=== PATIENT | female | born 1935 | race Caucasian/White ===

== ENCOUNTER → 2017-05-23 | Outpatient (CLI) | payer MEDICARE, OTHER ==
--- NOTE | 2017-06-10 10:58 | MM ---
Reason for exam: additional evaluation requested from prior study. Last mammogram was performed 6 years and 2 months ago. History: Patient is postmenopausal and has history of breast cancer at age 73. Family history of breast cancer in mother at age 90 and breast cancer in sister. Lumpectomy of the right breast, 2008. Benign excisional biopsy of both breasts, 1959. Benign excisional biopsy of the right breast, 1949. Physical Findings: Nurse did not find any significant physical abnormalities on exam. MG 3D Diag Mammo W/Cad EVY Bilateral CC and MLO view(s) were taken. Prior study comparison: November 01, 2016, mammogram, performed at [place]. March 21, 2016, mammogram, performed at [place]. January 26, 2015, mammogram, performed at [place]. April 05, 2011, CAD bilateral diagnostic mammogram. March 28, 2010, bilateral diagnostic digital mammog. Asymmetric breast tissue consistent with post biopsy change. No significant new findings when compared with previous films. These results were verbally communicated with the patient and result sheet given to the patient on 06/10/17. ASSESSMENT: Benign, BI-RAD 2 RECOMMENDATION: Follow-up diagnostic mammogram of both breasts in 1 year.
== END | disposition home or self-care (01) ==
LOC: RADMAMWWP 09:57
PROVIDERS: ATTEND Family Medicine
DX: N63.0 Unspecified lump in unspecified breast (principal); Z85.3 Personal history of malignant neoplasm of breast
CPT/HCPCS: G0204; G0279

== ENCOUNTER → 2017-12-10 | Outpatient (CLI) | payer MEDICARE, OTHER ==
--- NOTE | 2017-12-10 09:18 | USB ---
Reason for exam: clinical finding. History: Patient is postmenopausal and has history of breast cancer at age 73. Family history of breast cancer in mother at age 90 and breast cancer in sister. Lumpectomy of the right breast, 2009. Benign excisional biopsy of both breasts, 1959. Benign excisional biopsy of the right breast, 1949. Indicated problem(s): palpable abnormality and pain in the right breast. Physical Findings: Nurse did not find any significant physical abnormalities on exam. US Breast RT Right breast ultrasound includes all four quadrants, the retroareolar region and axilla. Finding demonstrates no cystic or solid lesion seen greater than 0.50cm. These results were verbally communicated with the patient and result sheet given to the patient on 12/10/17. ASSESSMENT: Negative, BI-RAD 1 RECOMMENDATION: Routine screening mammogram of both breasts in 6 months. Back on schedule. Manage on a clinical basis with regard to right pain.
== END | disposition home or self-care (01) ==
LOC: RADUSWWP 08:28
PROVIDERS: ATTEND Family Medicine
DX: N63.10 Unspecified lump in the right breast, unspecified quadrant (principal)

== ENCOUNTER 2018-01-28 11:46 | Observation (INO) | payer MEDICARE, OTHER ==
[2018-01-28] MEDS ORDERED: NITROGLYCERIN OINT 1 INCH/GM PACKET TOPICAL STA (11:57)
[2018-01-28] MEDS ORDERED: ASPIRIN 81 MG PO STA (11:57)
--- NOTE | 2018-01-28 12:00 | ED ---
General Adult HPI - General Stated complaint: chest pain Time Seen by Provider: 01/28/18 11:48 Source: patient, EMS, RN notes reviewed Mode of arrival: EMS Limitations: no limitations - History of Present Illness Initial comments: Patient is a pleasant 82-year-old female presenting to the emergency Department with complaints of chest discomfort. Onset of symptoms was between 30 and 60 minutes ago. Discomfort felt somewhat sharp on the left breast. No radiation. Patient did have some associated dyspnea. Symptoms resolved with aspirin and nitroglycerin. Patient had some minimal symptoms yesterday. Patient states symptoms are similar to previous heart attack. - Related Data Home Medications Medication Instructions Recorded Confirmed Anastrozole [Arimidex] 1 mg PO DAILY 03/07/15 09/04/17 Diltiazem HCl [Cardizem Cd] 120 mg PO DAILY 01/05/16 09/04/17 Hydrochlorothiazide [Hydrodiuril] 12.5 mg PO DAILY 01/05/16 09/04/17 Cholecalciferol [Vitamin D3] 1,000 unit PO DAILY 01/20/16 09/04/17 Nitroglycerin Sl Tabs [Nitrostat] 0.4 mg SUBLINGUAL Q5M PRN 01/20/16 09/04/17 Fluticasone/Vilanterol [Breo 1 puff INHALATION RT-DAILY 09/04/17 09/04/17 Ellipta 200-25 Mcg INH] Irbesartan [Avapro] 150 mg PO DAILY 09/04/17 09/04/17 Metoprolol Tartrate [Lopressor] 25 mg PO BID 09/04/17 09/04/17 Previous Rx's Medication Instructions Recorded Aspirin EC [Ecotrin Low Dose] 81 mg PO DAILY #30 tablet. 01/23/16 Ferrous Sulfate [Feosol] 325 mg PO DAILY 30 Days #30 tab 09/08/17 Isosorbide Mononitrate ER [Imdur] 30 mg PO DAILY tab.er.24h 09/08/17 Pantoprazole [Protonix] 40 mg PO AC-BRKFST tablet. 09/08/17 Allergies Allergy/AdvReac Type Severity Reaction Status Date / Time adhesive Allergy Unknown Verified 09/04/17 13:58 cephalexin monohydrate Allergy Unknown Verified 09/04/17 13:58 [From Keflex] ciprofloxacin [From Cipro] Allergy Unknown Verified 09/04/17 13:58 ciprofloxacin HCl Allergy Unknown Verified 09/04/17 13:58 [From Cipro] Penicillins Allergy Rash/Hives Verified 09/04/17 13:58 Sulfa (Sulfonamide Allergy Rash/Hives Verified 09/04/17 13:58 Antibiotics) Review of Systems ROS Statement: Those systems with pertinent positive or pertinent negative responses have been documented in the HPI. ROS Other: All systems not noted in ROS Statement are negative. Constitutional: Denies: fever Eyes: Denies: eye pain ENT: Denies: ear pain Respiratory: Reports: dyspnea. Denies: cough Cardiovascular: Reports: chest pain Endocrine: Denies: fatigue Gastrointestinal: Denies: abdominal pain Genitourinary: Denies: dysuria Musculoskeletal: Denies: back pain Skin: Denies: rash Neurological: Denies: weakness Past Medical History Past Medical History: Atrial Fibrillation, Cancer, Chest Pain / Angina, Hyperlipidemia, Hypertension, Myocardial Infarction ([place]), Osteoarthritis (OA), Seizure Disorder Additional Past Medical History / Comment(s): RTbreast CA had lumpectomy/ radiation, Aneurysm,concussion , BRONCHITIS, x2 mi's, stress test 2016-wnl,x1 seizure more than 30 years ago none since.sciatica, concussion 2014, past falls. Last Myocardial Infarction Date:: 2014 History of Any Multi-Drug Resistant Organisms: None Reported Past Surgical History: Appendectomy, Back Surgery, Bladder Surgery, Breast Surgery, Heart Catheterization With Stent, Hysterectomy, Joint Replacement, Pacemaker Additional Past Surgical History / Comment(s): right lumpectomy, neck surgery, left shoulder replaced, bilateral carpal tunnel surgery, right middle finger surgery, shingles (2012), CARDIAC STENTS TO RCA AND CIRC, EVY HIP REPLACMENTS( DONE IN [place]), EVY CATARACTS Past Anesthesia/Blood Transfusion Reactions: No Reported Reaction Date of Last Stent Placement:: 05/09/2007 Type of Cardiac Device: Biventricular Pacemaker Device Placement Date:: 06/18/11 Past Psychological History: No Psychological Hx Reported Smoking Status: Former smoker Past Alcohol Use History: Daily Past Drug Use History: None Reported - Past Family History Father Additional Family Medical History / Comment(s): kidney problem, heart attack Mother Family Medical History: Cancer Additional Family Medical History / Comment(s): colon ca, breast ca, MOM LIVED TO BE 98 YEARS OLD Sister(s) Family Medical History: Cancer Additional Family Medical History / Comment(s): colon ca, breast ca General Exam Limitations: no limitations General appearance: alert, in no apparent distress Head exam: Present: atraumatic Eye exam: Present: normal appearance, PERRL ENT exam: Present: normal oropharynx Neck exam: Present: normal inspection Respiratory exam: Present: normal lung sounds bilaterally Cardiovascular Exam: Present: regular rate, normal rhythm Expanded Peripheral pulses: 2+: Radial (R), Radial (L), Posterior Tibialis (R), Posterior Tibialis (L) GI/Abdominal exam: Present: soft. Absent: tenderness Extremities exam: Present: normal inspection. Absent: pedal edema, calf tenderness Neurological exam: Present: alert Psychiatric exam: Present: normal affect, normal mood Skin exam: Present: normal color Course Vital Signs 01/28/18 01/28/18 11:54 12:14 Temperature 98.2 F Pulse Rate 67 61 Respiratory 16 18 Rate Blood Pressure 180/67 117/62 O2 Sat by Pulse 97 100 Oximetry EKG Findings - EKG Comments: EKG Findings:: Paced rhythm at 62. SD 220. QRS 170. QT 468. QTC 475. Normal axis. Wide complex QRS. Nonspecific ST-T. Medical Decision Making - Medical Decision Making Patient reevaluated and resting comfortably in bed. No discomfort at this time. Patient and family updated on results and plan. Dr. Saleh has been paged for admission for Dr. tolentino. - Lab Data Result diagrams: 01/28/18 11:55 01/28/18 11:55 Lab Results 01/28/18 01/28/18 01/28/18 Range/Units 11:55 11:55 11:55 WBC 4.2 (3.8-10.6) k/uL RBC 4.02 (3.80-5.40) m/uL Hgb 12.0 (11.4-16.0) gm/dL Hct 36.5 (34.0-46.0) % MCV 90.6 (80.0-100.0) fL MCH 29.9 (25.0-35.0) pg MCHC 33.0 (31.0-37.0) g/dL RDW 16.9 H (11.5-15.5) % Plt Count 265 (150-450) k/uL PT (9.0-12.0) sec INR (<1.2) APTT (22.0-30.0) sec Sodium 141 (137-145) mmol/L Potassium 4.1 (3.5-5.1) mmol/L Chloride 106 (98-107) mmol/L Carbon Dioxide 22 (22-30) mmol/L Anion Gap 13 mmol/L BUN 27 H (7-17) mg/dL Creatinine 0.71 (0.52-1.04) mg/dL Est GFR (CKD-EPI)AfAm >90 (>60 ml/min/1.73 sqM) Est GFR (CKD-EPI)NonAf 80 (>60 ml/min/1.73 sqM) Glucose 79 (74-99) mg/dL Calcium 8.3 L (8.4-10.2) mg/dL Magnesium 1.9 (1.6-2.3) mg/dL Total Bilirubin 0.4 (0.2-1.3) mg/dL AST 28 (14-36) U/L ALT 24 (9-52) U/L Alkaline Phosphatase 72 (38-126) U/L Total Creatine Kinase 54 (30-135) U/L CK-MB (CK-2) 1.5 (0.0-2.4) ng/mL CK-MB (CK-2) Rel Index 2.8 Troponin I 0.012 (0.000-0.034) ng/mL Total Protein 6.2 L (6.3-8.2) g/dL Albumin 3.6 (3.5-5.0) g/dL 01/28/18 Range/Units 11:55 WBC (3.8-10.6) k/uL RBC (3.80-5.40) m/uL Hgb (11.4-16.0) gm/dL Hct (34.0-46.0) % MCV (80.0-100.0) fL MCH (25.0-35.0) pg MCHC (31.0-37.0) g/dL RDW (11.5-15.5) % Plt Count (150-450) k/uL PT 10.2 (9.0-12.0) sec INR 1.0 (<1.2) APTT 24.4 (22.0-30.0) sec Sodium (137-145) mmol/L Potassium (3.5-5.1) mmol/L Chloride (98-107) mmol/L Carbon Dioxide (22-30) mmol/L Anion Gap mmol/L BUN (7-17) mg/dL Creatinine (0.52-1.04) mg/dL Est GFR (CKD-EPI)AfAm (>60 ml/min/1.73 sqM) Est GFR (CKD-EPI)NonAf (>60 ml/min/1.73 sqM) Glucose (74-99) mg/dL Calcium (8.4-10.2) mg/dL Magnesium (1.6-2.3) mg/dL Total Bilirubin (0.2-1.3) mg/dL AST (14-36) U/L ALT (9-52) U/L Alkaline Phosphatase (38-126) U/L Total Creatine Kinase (30-135) U/L CK-MB (CK-2) (0.0-2.4) ng/mL CK-MB (CK-2) Rel Index Troponin I (0.000-0.034) ng/mL Total Protein (6.3-8.2) g/dL Albumin (3.5-5.0) g/dL - Radiology Data Radiology results: image reviewed (Chest x-ray shows chronic changes without acute abnormality.) Disposition Clinical Impression: Chest pain Disposition: ADMITTED IP TO THIS [facility] Is patient prescribed a controlled substance at d/c from ED?: No Referrals: Dayanna Izquierdo MD [Primary Care Provider] - 1-2 days Decision Time: 12:52
[2018-01-28 12:19] LABS: ALT 24 U/L (9-52); AST 28 U/L (14-36); Albumin 3.6 g/dL (3.5-5.0); Alkaline Phosphatase 72 U/L (38-126); Anion Gap 13 mmol/L; Blood Urea Nitrogen 27 mg/dL (7-17); Calcium 8.3 mg/dL (8.4-10.2); Carbon Dioxide 22 mmol/L (22-30); Chloride 106 mmol/L (98-107); Glucose 79 mg/dL (74-99); Magnesium 1.9 mg/dL (1.6-2.3); Partial Thromboplastin Time 24.4 sec (22.0-30.0); Potassium 4.1 mmol/L (3.5-5.1); Prothrombin Time 10.2 sec (9.0-12.0); Sodium 141 mmol/L (137-145); Total Bilirubin 0.4 mg/dL (0.2-1.3); Total Protein 6.2 g/dL (6.3-8.2)
--- NOTE | 2018-01-28 12:20 | XR ---
EXAMINATION TYPE: XR chest 2V DATE OF EXAM: 01/28/2018 COMPARISON: Chest x-ray September 04, 2017 HISTORY: Chest pain and shortness of breath TECHNIQUE: Frontal and lateral views of the chest are obtained. FINDINGS: There is no focal air space opacity, pleural effusion, or pneumothorax seen. The cardiac silhouette size remains within normal limits with dual lead pacemaker and atherosclerotic thoracic ao rta redemonstrated. The osseous structures remain demineralized. Surgical change left shoulder leve l is partially imaged. IMPRESSION: Chronic changes without acute pulmonary process. No significant change from prior.
[2018-01-28 12:37] LABS: Anisocytosis Slight; HCT 36.5 % (34.0-46.0); MCH 29.9 pg (25.0-35.0); MCV 90.6 fL (80.0-100.0); Mean Platelet Volume 6.8; Platelet Count 265 k/uL (150-450); RBC 4.02 m/uL (3.80-5.40); RDW 16.9 % (11.5-15.5); WBC 4.2 k/uL (3.8-10.6)
[2018-01-28 12:40] LABS: Creatine Kinase MB 1.5 ng/mL (0.0-2.4); Troponin I 0.012 ng/mL (0.000-0.034)
[2018-01-28] MEDS ORDERED: NITROGLYCERIN SL TABS 0.4 MG TAB SUBLINGUAL PRN (12:52)
[2018-01-28 12:54] LABS: Eosinophils # (M) 0.21 k/uL (0-0.7); Lymphocytes # (M) 0.63 k/uL (1.0-4.8); Monocytes # (M) 0.63 k/uL (0-1.0); Neutrophils # (M) 2.73 k/uL (1.3-7.7); Neutrophils % (M) 65 %; Nucleated Red Blood Cells 0 /100 WBC (0-0); Total Cells Counted 100
--- NOTE | 2018-01-28 14:24 | P.HPIM ---
History of Present Illness H&P Date: 01/28/18 Chief Complaint: Chest pain This is a 82-year-old female, patient of Dr. Izquierdo. She has a known past medical history of a previous myocardial infarction, coronary artery disease and cardiac stents. She also has a known history of atrial fibrillation, hyperlipidemia, hypertension, COPD, previous smoker, seizure disorder, right breast cancer status post lumpectomy and radiation treatment. Patient reports that this morning around 8:00 she had a sudden onset of severe sharp pain under the left breast. She was short of breath. She took an aspirin and nitro and went to her neighbor's house to call for help. Patient did not have her follow- up with her. The neighbor called the ambulance and break patient was brought into the emergency room for further evaluation and treatment. Patient does report she was out in the heat yesterday walking [facility] to fill out some paperwork forms. And at that time she noticed some shortness of breath but no chest pain. Patient was given another aspirin and nitro in the ambulance and at that time had relief for symptoms. Patient's symptoms lasted for about 3 hours. Patient had a heart cath in February 2015 which she had angioplasty and stent of the mid left circumflex. Patient also reports just finishing antibiotics for possible bronchitis with him last week or so. She denies any nausea or vomiting, diaphoresis, bowel movement changes or urinary symptoms. Denies any fever chills or sweats. She denies any radiation of the chest pain into the neck or arm. Denies any history of diabetes. Cardiology is been consulted. Chest x-ray shows new no acute changes. First troponin is negative. EKG atrial ventricular paced rhythm with prolonged AV conduction Review of Systems Please refer to HPI otherwise unremarkable Past Medical History Past Medical History: Atrial Fibrillation, Cancer, Chest Pain / Angina, Hyperlipidemia, Hypertension, Myocardial Infarction ([place]), Osteoarthritis (OA), Seizure Disorder Additional Past Medical History / Comment(s): RTbreast CA had lumpectomy/ radiation, Aneurysm,concussion , BRONCHITIS, x2 mi's, stress test 2015-wnl,x1 seizure more than 30 years ago none since.sciatica, concussion 2014, past falls. Last Myocardial Infarction Date:: 2014 History of Any Multi-Drug Resistant Organisms: None Reported Past Surgical History: Appendectomy, Back Surgery, Bladder Surgery, Breast Surgery, Heart Catheterization With Stent, Hysterectomy, Joint Replacement, Pacemaker Additional Past Surgical History / Comment(s): right lumpectomy, neck surgery, left shoulder replaced, bilateral carpal tunnel surgery, right middle finger surgery, shingles (2013), CARDIAC STENTS TO RCA AND CIRC, EVY HIP REPLACMENTS( DONE IN [place]), EVY CATARACTS Past Anesthesia/Blood Transfusion Reactions: No Reported Reaction Date of Last Stent Placement:: 05/09/2007 Type of Cardiac Device: Biventricular Pacemaker Device Placement Date:: 06/18/11 Past Psychological History: No Psychological Hx Reported Smoking Status: Former smoker Past Alcohol Use History: Daily Additional Past Alcohol Use History / Comment(s): Patient drinks 1 shot of vodka before bed daily to help with sleeping Past Drug Use History: None Reported - Past Family History Father Additional Family Medical History / Comment(s): kidney problem, heart attack Mother Family Medical History: Cancer Additional Family Medical History / Comment(s): colon ca, breast ca, MOM LIVED TO BE 98 YEARS OLD Sister(s) Family Medical History: Cancer Additional Family Medical History / Comment(s): colon ca, breast ca Medications and Allergies Home Medications Medication Instructions Recorded Confirmed Type Anastrozole [Arimidex] 1 mg PO DAILY 03/07/15 09/04/17 History Diltiazem HCl [Cardizem Cd] 120 mg PO DAILY 01/05/16 09/04/17 History Hydrochlorothiazide [Hydrodiuril] 12.5 mg PO DAILY 01/05/16 09/04/17 History Cholecalciferol [Vitamin D3] 1,000 unit PO DAILY 01/20/16 09/04/17 History Nitroglycerin Sl Tabs [Nitrostat] 0.4 mg SUBLINGUAL Q5M PRN 01/20/16 09/04/17 History Aspirin EC [Ecotrin Low Dose] 81 mg PO DAILY #30 tablet. 01/23/16 09/04/17 Rx Fluticasone/Vilanterol [Breo 1 puff INHALATION RT-DAILY 09/04/17 09/04/17 History Ellipta 200-25 Mcg INH] Irbesartan [Avapro] 150 mg PO DAILY 09/04/17 09/04/17 History Metoprolol Tartrate [Lopressor] 25 mg PO BID 09/04/17 09/04/17 History Ferrous Sulfate [Feosol] 325 mg PO DAILY 30 Days #30 tab 09/08/17 Rx Isosorbide Mononitrate ER [Imdur] 30 mg PO DAILY tab.er.24h 09/08/17 Rx Pantoprazole [Protonix] 40 mg PO AC-BRKFST tablet. 09/08/17 Rx Allergies Allergy/AdvReac Type Severity Reaction Status Date / Time adhesive Allergy Unknown Verified 09/04/17 13:58 cephalexin monohydrate Allergy Unknown Verified 09/04/17 13:58 [From Keflex] ciprofloxacin [From Cipro] Allergy Unknown Verified 09/04/17 13:58 ciprofloxacin HCl Allergy Unknown Verified 09/04/17 13:58 [From Cipro] Penicillins Allergy Rash/Hives Verified 09/04/17 13:58 Sulfa (Sulfonamide Allergy Rash/Hives Verified 09/04/17 13:58 Antibiotics) Physical Exam Vitals: Vital Signs Temp Pulse Pulse Resp BP BP Pulse Ox 01/28/18 14:04 97.4 F L 60 18 168/72 98 01/28/18 13:33 97.4 F L 62 18 149/67 97 01/28/18 12:14 61 18 117/62 100 01/28/18 11:54 98.2 F 67 16 180/67 97 Intake and Output 01/27/18 01/28/18 01/28/18 22:59 06:59 14:59 Other: Weight 67 kg Head normocephalic Neck supple Lungs clear to auscultation bilaterally no wheezing or crackles. Chest wall shows no evidence of any rash or lesions Heart regular rate and rhythm S1-S2, no rub or gallop Abdomen is soft nontender nondistended positive bowel sounds no hepatosplenomegaly Extremities no edema Neuro alert and orientated to 3 Results CBC & Chem 7: 01/28/18 11:55 01/28/18 11:55 Labs: Abnormal Lab Results - Last 24 Hours (Table) 01/28/18 01/28/18 Range/Units 11:55 11:55 RDW 16.9 H (11.5-15.5) % Lymphocytes # (Manual) 0.63 L (1.0-4.8) k/uL BUN 27 H (7-17) mg/dL Calcium 8.3 L (8.4-10.2) mg/dL Total Protein 6.2 L (6.3-8.2) g/dL Assessment and Plan Assessment: 1. Chest pain with shortness of breath: Improved with aspirin and nitro. First troponin negative. EKG showing atrial sensed ventricular paced rhythm. Cardiology consulted. Continue with telemetry monitoring. Continue to monitor cardiac enzymes. Also will check a d-dimer since the chest pain shortness of breath did come on suddenly 2. History of Myocardial infarction and coronary disease with stent 3. History of right breast cancer status post lumpectomy and radiation treatment 4. History of paroxysmal atrial fibrillation 5. Hyperlipidemia 6. Essential hypertension Patient reports being on anticoagulation at home for afib. Awaiting for home medications to be updated by pharmacy. Then will resume home medications Time with Patient: Greater than 30 (Greater than 60% of the total time spent in counseling and coordination of care.I performed an examination of the patient and discussed their management with the physician Milling Operator. I have reviewed the Physician Milling Operator's notes and agree with the documented findings and plan of care)
[2018-01-28] MEDS ORDERED: NYSTATIN 100,000UNIT/GM CREAM 30 GM TUBE TOPICAL PRN (15:13)
[2018-01-28] MEDS: NITROGLYCERIN OINT 1 INCH/GM PACKET TOPICAL SCH (17:23)
[2018-01-28 18:18] LABS: Creatine Kinase 52 U/L (30-135)
[2018-01-28 18:32] LABS: Creatine Kinase MB 1.5 ng/mL (0.0-2.4); Troponin I <0.012 ng/mL (0.000-0.034)
[2018-01-28] MEDS: METOPROLOL TARTRATE 25 MG TAB PO SCH (19:58)
[2018-01-28] MEDS: HEPARIN SODIUM,PORCINE 5,000 UNIT/ML 1 ML VIAL SQ SCH (19:58)
[2018-01-28] MEDS ORDERED: diphenhydrAMINE 25 MG CAP PO SCH (21:00)
--- NOTE | 2018-01-28 22:11 | CT ---
EXAMINATION TYPE: CT angio chest DATE OF EXAM: 01/28/2018 10:03 PM COMPARISON: 01/20/2016 HISTORY: Chest pain, elevated d-dimer CT DLP: 349.3 mGycm Automated exposure control for dose reduction was used. CONTRAST: CTA scan of the thorax is performed with IV Contrast, patient injected with 70 mL of Isovue 370, pulm onary embolism protocol. There are 3-D post processed images.. FINDINGS: The lungs are clear of consolidation. There is slight coarsening of interstitial markings at the lung bases. There is no pleural effusion. There is no evidence of a pulmonary mass. There is no pericardi al effusion. I see no filling defects in the pulmonary arteries. There is no pericardial effusion. Th ere is borderline aneurysm of the ascending aorta measures 3.9 cm. There is no evidence of dissection . The bony thorax is intact. IMPRESSION: NO EVIDENCE OF PULMONARY EMBOLISM. MILD PULMONARY FIBROTIC CHANGES. 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 NO SIGNIFICANT CHANGE COMPARED TO OLD EXAM.
[2018-01-29 00:17] LABS: Creatine Kinase 52 U/L (30-135)
[2018-01-29 00:31] LABS: Creatine Kinase MB 1.6 ng/mL (0.0-2.4); Troponin I <0.012 ng/mL (0.000-0.034)
[2018-01-29] MEDS: ACETAMINOPHEN TAB 325 MG TAB PO PRN ×2 (00:37→04:19)
[2018-01-29] MEDS: NITROGLYCERIN OINT 1 INCH/GM PACKET TOPICAL SCH ×2 (00:56→07:19)
[2018-01-29 07:22] LABS: Anisocytosis Slight; Basophils % (A) 1 %; Eosinophils # (A) 0.2 k/uL (0-0.7); Eosinophils % (A) 8 %; HCT 35.2 % (34.0-46.0); HGB 11.4 gm/dL (11.4-16.0); Lymphocytes # (A) 0.8 k/uL (1.0-4.8); Lymphocytes % (A) 27 %; MCH 28.9 pg (25.0-35.0); MCHC 32.3 g/dL (31.0-37.0); MCV 89.4 fL (80.0-100.0); Mean Platelet Volume 6.9; Monocytes # (A) 0.3 k/uL (0-1.0); Monocytes % (A) 10 %; Neutrophils # (A) 1.4 k/uL (1.3-7.7); Neutrophils % (A) 50 %; Platelet Count 247 k/uL (150-450); RBC 3.94 m/uL (3.80-5.40); RDW 16.8 % (11.5-15.5); WBC 2.9 k/uL (3.8-10.6)
[2018-01-29] MEDS ORDERED: PANTOPRAZOLE 40 MG TABLET PO SCH (07:30)
[2018-01-29 07:33] LABS: ALT 24 U/L (9-52); AST 29 U/L (14-36); Albumin 3.4 g/dL (3.5-5.0); Alkaline Phosphatase 75 U/L (38-126); Anion Gap 9 mmol/L; Blood Urea Nitrogen 22 mg/dL (7-17); Carbon Dioxide 25 mmol/L (22-30); Chloride 106 mmol/L (98-107); Cholesterol 196 mg/dL (<200); Glucose 92 mg/dL (74-99); HDL Cholesterol 67 mg/dL (40-60); LDL Cholesterol,Calculated 116 mg/dL (0-99); Potassium 4.1 mmol/L (3.5-5.1); Sodium 140 mmol/L (137-145); Total Bilirubin 0.4 mg/dL (0.2-1.3); Total Protein 5.9 g/dL (6.3-8.2); Triglycerides 67 mg/dL (<150)
[2018-01-29] MEDS ORDERED: SYMBICORT 160-4.5 MCG INHALER INHALATION SCH (08:00)
[2018-01-29] MEDS ORDERED: FERROUS SULFATE 325 MG TAB PO SCH (09:00)
[2018-01-29] MEDS ORDERED: DILTIAZEM CD 120 MG CAP.ER.24H PO SCH (09:00)
[2018-01-29] MEDS ORDERED: HYDROCHLOROTHIAZIDE 12.5 MG CAP PO SCH (09:00)
[2018-01-29] MEDS ORDERED: ASPIRIN 325 MG TAB PO SCH (09:00)
[2018-01-29] MEDS ORDERED: CHOLECALCIFEROL 1,000 UNIT TAB PO SCH (09:00)
[2018-01-29] MEDS ORDERED: LOSARTAN 50 MG TAB PO SCH (09:00)
[2018-01-29] MEDS ORDERED: ASPIRIN 81 MG PO SCH (09:00)
[2018-01-29] MEDS ORDERED: ANASTROZOLE 1 MG TAB PO SCH (09:00)
[2018-01-29] MEDS ORDERED: REGADENOSON 0.4 MG/5 ML SYRINGE IV ONE (10:07)
[2018-01-29] MEDS ORDERED: AMINOPHYLLINE 500 MG/20 ML VIAL IV PRN (10:07)
--- NOTE | 2018-01-29 10:12 | P.CRDCN ---
History of Present Illness History of present illness: This is a pleasant 82-year-old female past medical history significant for coronary artery disease status post angioplasty. She has undergone angioplasty on 3 separate occasions first being in 2016 of the distal RCA, 04/2015 again the distal RCA and mid circumflex. She also has hypertension , dyslipidemia, peripheral vascular disease, gastroesophageal reflux disease, history of right breast cancer status post radiation and lumpectomy, complete heart block status post permanent biventricular pacemaker implantation and questionable paroxysmal atrial fibrillation. She states she was told she had atrial fibrillation in 2007 however is on no long-term anticoagulation and states she never has been. She has followed in the past with Dr. García, but has not followed up since 2014. We've been asked to see her in consultation for complaints of chest pain. She states morning while she was sitting down she had a very intense excruciating sharp pain in the left precordial region that was associated with shortness of breath, palpitations and dizziness. She denies radiation of the pain to the arms, back, neck or jaw. She states she was really able to make it to the neighbors to ask for help because the pain was so intense. She took one sublingual nitroglycerin and an aspirin at home and the pain ultimately subsided after about 30 minutes. She has had no recurrence of the pain since admission. She denies associated nausea, vomiting or diaphoresis. EKG reveals a paced rhythm with a prolonged AV conduction. Chest x-ray shows chronic changes without an acute cardiopulmonary process. Laboratory data reviewed, hgb 12.0, plt 265, d-dimer 0.64, sodium 141, potassium 4.1, magnesium 1.9, creatinine 0.71, cardiac enzymes negative 3. Current cardiac medications include aspirin 81 mg daily, Cardizem 120 mg daily, hydrochlorothiazide 12.5 mg daily, irbesartan 150 mg daily, Imdur 30 mg daily, metoprolol 25 mg twice a day and sublingual nitroglycerin when necessary. She also takes Protonix, Brio, ferrous sulfate, Arimidex and vitamin D supplementation. Most recent echocardiogram performed August 2017 reveals preserved left ventricular systolic function with ejection fraction 55-60%, severely dilated left atrium, pacemaker lead seen in the right atrial cavity, atrium enlargement , borderline pulmonary hypertension with an RVSP of 34.31 mmHg. Review of Systems At the time of my exam: CONSTITUTIONAL: Denies fever. Denies chills. EYES: Denies blurred vision. Denies vision changes. Denies eye pain. EARS, NOSE, MOUTH & THROAT: Denies headache. Denies sore throat. Denies ear pain. CARDIOVASCULAR: Denies chest pain. Denies shortness of breath. Denies orthopnea. Denies PND. Denies palpitations. RESPIRATORY: Denies cough. GASTROINTESTINAL: Denies abdominal pain. Denies diarrhea. Denies constipation. Denies nausea. Denies vomiting. MUSCULOSKELETAL: Denies myalgias. INTEGUMENTARY: Denies pruitis. Denies rash. NEUROLOGIC: Denies numbness. Denies tingling. Denies weakness. PSYCHIATRIC: Denies anxiety. Denies depression. ENDOCRINE: Denies fatigue. Denies weight change. Denies polydipsia. Denies polyurina. GENITOURINARY: Denies burning, hematuria or urgency with micturation. HEMATOLOGIC: Denies history of anemia. Denies bleeding. Past Medical History Past Medical History: Atrial Fibrillation, Coronary Artery Disease (CAD), Cancer , Chest Pain / Angina, GERD/Reflux, Hypertension, Myocardial Infarction ([place]), Osteoarthritis (OA), Pneumonia, Seizure Disorder Additional Past Medical History / Comment(s): R breast cancer with lumpectomy/ radiation, CHB with pacer, cerebral aneurysm, arthritis multiple joints and in neck/back, sciatica right sided, balance issues at times, fall with concussion, multiple bronchitis, iron deficiency anemia, UTIs, stomach ulcer in past. Last Myocardial Infarction Date:: 2014 History of Any Multi-Drug Resistant Organisms: None Reported Past Surgical History: Appendectomy, Back Surgery, Breast Surgery, Heart Catheterization With Stent, Hysterectomy, Joint Replacement, Pacemaker Additional Past Surgical History / Comment(s): right breast lumpectomy, cervical surgery, lumbar surgery, left shoulder replaced, right thumb surgery, CARDIAC STENTS TO RCA AND CIRC, EVY HIP REPLACMENTS (DONE IN [place]), EVY CATARACTS, EGD/colonoscopy, capsule endoscopy, hemorrhoidectomy. Past Anesthesia/Blood Transfusion Reactions: No Reported Reaction Date of Last Stent Placement:: 03/10/15 Type of Cardiac Device: Biventricular Pacemaker Device Placement Date:: originally placed in 2005 and d/t L total shoulder surgery, moved 06/18/11 Smoking Status: Former smoker - Past Family History Father Additional Family Medical History / Comment(s): kidney problem, heart attack Mother Family Medical History: Cancer Additional Family Medical History / Comment(s): colon ca, breast ca, MOM LIVED TO BE 98 YEARS OLD Sister(s) Family Medical History: Cancer Additional Family Medical History / Comment(s): colon ca, breast ca Medications and Allergies Home Medications Medication Instructions Recorded Confirmed Type Anastrozole [Arimidex] 1 mg PO DAILY 03/07/15 01/28/18 History Diltiazem HCl [Cardizem Cd] 120 mg PO DAILY 01/05/16 01/28/18 History Hydrochlorothiazide [Hydrodiuril] 12.5 mg PO DAILY 01/05/16 01/28/18 History Cholecalciferol [Vitamin D3] 1,000 unit PO DAILY 01/20/16 01/28/18 History Nitroglycerin Sl Tabs [Nitrostat] 0.4 mg SUBLINGUAL Q5M PRN 01/20/16 01/28/18 History Aspirin EC [Ecotrin Low Dose] 81 mg PO DAILY #30 tablet. 01/23/16 01/28/18 Rx Fluticasone/Vilanterol [Breo 1 puff INHALATION RT-DAILY 09/04/17 01/28/18 History Ellipta 200-25 Mcg INH] Irbesartan [Avapro] 150 mg PO DAILY 09/04/17 01/28/18 History Metoprolol Tartrate [Lopressor] 25 mg PO BID 09/04/17 01/28/18 History Ferrous Sulfate [Feosol] 325 mg PO DAILY 30 Days #30 tab 09/08/17 01/28/18 Rx Isosorbide Mononitrate ER [Imdur] 30 mg PO DAILY tab.er.24h 09/08/17 01/28/18 Rx Pantoprazole [Protonix] 40 mg PO AC-BRKFST tablet. 09/08/17 01/28/18 Rx Nystatin 100,000Unit/gm Cream 1 applic TOPICAL BID PRN 01/28/18 01/28/18 History [Mycostatin Cream] diphenhydrAMINE HCL [Benadryl] 25 mg PO HS 01/28/18 01/28/18 History Allergies Allergy/AdvReac Type Severity Reaction Status Date / Time adhesive Allergy Unknown Verified 01/28/18 14:35 cephalexin monohydrate Allergy Unknown Verified 01/28/18 14:35 [From Keflex] ciprofloxacin [From Cipro] Allergy Unknown Verified 01/28/18 14:35 ciprofloxacin HCl Allergy Unknown Verified 01/28/18 14:35 [From Cipro] Penicillins Allergy Rash/Hives Verified 01/28/18 14:35 Sulfa (Sulfonamide Allergy Rash/Hives Verified 01/28/18 14:35 Antibiotics) Physical Exam Vitals: Vital Signs Temp Pulse Pulse Resp BP BP Pulse Ox 01/28/18 14:04 97.4 F L 60 18 168/72 98 01/28/18 13:33 97.4 F L 62 18 149/67 97 01/28/18 12:14 61 18 117/62 100 01/28/18 11:54 98.2 F 67 16 180/67 97 Intake and Output 01/28/18 01/28/18 01/28/18 06:59 14:59 22:59 Other: Weight 67 kg Blood pressure 160/72 heart rate 68 afebrile maintaining oxygen saturation on room air GENERAL: This is a 82-year-old female in no apparent distress at the time of my examination. HEENT: Head is atraumatic, normocephalic. Pupils are equal, round. Sclerae anicteric. Conjunctivae are clear. Mucous membranes of the mouth are moist. Neck is supple. There is no jugular venous distention. No carotid bruit is heard. LUNGS: Clear to auscultation no wheezes, rales or rhonchi. No chest wall tenderness is noted on palpation or with deep breathing. HEART: Regular rate and rhythm with systolic ejection murmur at the base, no rubs or gallops. S1 and S2 heard. ABDOMEN: Soft, nontender. Bowel sounds are heard. No organomegaly noted. EXTREMITIES: No evidence of peripheral edema and no calf tenderness noted. VASCULAR: Radial and dorsalis pedis pulses palpated, no evidence of clubbing. NEUROLOGIC: Patient is awake, alert and oriented x3. Results 01/29/18 06:36 01/29/18 06:36 Cardiac Enzymes 01/28/18 01/28/18 Range/Units 11:55 11:55 AST 28 (14-36) U/L CK-MB (CK-2) 1.5 (0.0-2.4) ng/mL Troponin I 0.012 (0.000-0.034) ng/mL Coagulation 01/28/18 Range/Units 11:55 PT 10.2 (9.0-12.0) sec APTT 24.4 (22.0-30.0) sec CBC 01/28/18 Range/Units 11:55 WBC 4.2 (3.8-10.6) k/uL RBC 4.02 (3.80-5.40) m/uL Hgb 12.0 (11.4-16.0) gm/dL Hct 36.5 (34.0-46.0) % Plt Count 265 (150-450) k/uL Comprehensive Metabolic Panel 01/28/18 Range/Units 11:55 Sodium 141 (137-145) mmol/L Potassium 4.1 (3.5-5.1) mmol/L Chloride 106 (98-107) mmol/L Carbon Dioxide 22 (22-30) mmol/L BUN 27 H (7-17) mg/dL Creatinine 0.71 (0.52-1.04) mg/dL Glucose 79 (74-99) mg/dL Calcium 8.3 L (8.4-10.2) mg/dL AST 28 (14-36) U/L ALT 24 (9-52) U/L Alkaline Phosphatase 72 (38-126) U/L Total Protein 6.2 L (6.3-8.2) g/dL Albumin 3.6 (3.5-5.0) g/dL Current Medications Generic Name Dose Route Start Last Admin Trade Name Freq PRN Reason Stop Dose Admin Anastrozole 1 mg 01/29/18 09:00 Arimidex PO DAILY [facility] Aspirin 325 mg 01/29/18 09:00 Aspirin PO DAILY CHANCE Budesonide/Formoterol Fumarate 2 puff 01/29/18 08:00 Symbicort 160-4.5 Mcg Inhaler INHALATION RT-BID CHANCE Cholecalciferol 1,000 unit 01/29/18 09:00 Vitamin D3 PO DAILY CHANCE Diltiazem HCl 120 mg 01/29/18 09:00 Cardizem Cd PO DAILY CHANCE Diphenhydramine HCl 25 mg 01/28/18 21:00 Benadryl PO HS CHANCE Ferrous Sulfate 325 mg 01/29/18 09:00 Feosol PO DAILY CHANCE Hydrochlorothiazide 12.5 mg 01/29/18 09:00 Hydrodiuril PO DAILY CHANCE Losartan Potassium 50 mg 01/29/18 09:00 Cozaar PO DAILY CHANCE Metoprolol Tartrate 25 mg 01/28/18 21:00 Lopressor PO BID CHANCE Nitroglycerin 1 inch 01/28/18 18:00 Nitro-Bid Oint TOPICAL Q6HR CHANCE Nitroglycerin 0.4 mg 01/28/18 12:52 Nitrostat SUBLINGUAL Q5M PRN Chest Pain Nystatin 1 applic 01/28/18 15:13 Mycostatin Cream TOPICAL BID PRN Rash Pantoprazole Sodium 40 mg 01/29/18 07:30 Protonix PO AC-BRKFST CHANCE Intake and Output 01/28/18 01/28/18 01/28/18 06:59 14:59 22:59 Other: Weight 67 kg Patient Weight 01/29/18 06:59 Weight 67 kg 01/28/18 11:55 01/28/18 11:55 Assessment and Plan Assessment: ASSESSMENT 1. Chest pain, atypical. An acute coronary event has been ruled out. 2. History of known coronary artery disease with angioplasty to circumflex and RCA 3. Questionable paroxysmal atrial fibrillation 4. Hypertension 5. History of breast cancer status post radiation and lumpectomy 6. Complete heart block status post permanent pacemaker implantation PLAN Interrogate pacemaker with 8bit.t. Change aspirin to 81 mg daily. Perform Lexiscan stress test to assess for reversible cardiac ischemia. Further recommendations to follow based on clinical course. Thank you kindly for this consultation. Nurse Practitioner note has been reviewed, I agree with a documented findings and plan of care. Patient was seen and examined.
[2018-01-29] MEDS ORDERED: AMINOPHYLLINE 250 MG/10 ML VIAL IV ONE (12:00)
--- NOTE | 2018-01-29 12:31 | P.STRESS ---
- Stress Test Note Stress Test Results/Findings: Exam Performed: NM stress lexiscan cardiolite Exam Date: 01/29/18 Reason for Exam: Chest Pain Height: 5 ft 2 in Weight: 67 kg Protocol: Josephine Scan Stage: na Duration of Exercise: na Resting Heart Rate: 60 Resting Blood Pressure: 209/93 Maximum Achieved Heart Rate: 71 Maximum Achieved Blood Pressure: 220/86 85% PMHR: na 100% PMHR: na METS: na Technologist Comment: Stress Test Results/Findings: This is a 82-year-old female with history of previous ischemic heart disease, hypertension, previous stent placement is admitted to the hospital with complaints of chest pain. Patient also has a permanent pacemaker implantation. Stress data: Baseline EKG showed a dual-chamber pacemaker rhythm. Blood pressure at rest is 209/93 with pulse rate of 60. A standard dose of Lexiscan was infused. EKGs taken during and after infusion did not reveal any changes from the baseline. Final impression: #1. Nondiagnostic Lexiscan stress test because of baseline EKG changes related to pacemaker rhythm. #2. Report on the nuclear images to be given by the radiologist.
[2018-01-29] MEDS: METOPROLOL TARTRATE 25 MG TAB PO SCH (13:03)
[2018-01-29] MEDS: HEPARIN SODIUM,PORCINE 5,000 UNIT/ML 1 ML VIAL SQ SCH (13:03)
--- NOTE | 2018-01-29 14:09 | NM ---
EXAMINATION TYPE: NM stress lexiscan cardiolite DATE OF EXAM: 01/29/2018 COMPARISON: NONE HISTORY: Chest pain TECHNIQUE: After the intravenous administration of 9.99 mCi Tc 99m Sestamibi - Cardiolite resting SP ECT images acquired 45 minutes post injection. The patient received 0.4mg Lexiscan, 24.6 mCi Tc 99m Sestamibi - Stress images obtained [address] injection FINDINGS: No fixed or reversible perfusion defects are evident. Gated wall motion appears normal. Ejection frac tion of 51% is normal. IMPRESSION: 1. Normal stress myocardial study.
[2018-01-29 15:44] VITALS: BP 162/74; PULSE 61; RESP 16; TEMP 98
--- NOTE | 2018-01-29 16:17 | P.DS ---
Providers Date of admission: 01/28/18 12:52 Expected date of discharge: 01/29/18 Attending physician: Reyes Saleh Consults: 01/28/18 12:52 Consult Physician Urgent Consulting Provider: Jeremi Lemus Consult Reason/Comments: cp Do you want consulting provider notified?: Yes [facility] Course: 1. Chest pain: Twelve-lead EKG showed paced rhythm with no acute ischemic changes. Serial troponin negative 3 sets. Patient was seen by cardiology. She underwent cardiac stress test that was negative. She was cleared for discharge. D-dimer was elevated but CT angiogram was negative for PE. 2. History of coronary artery disease with stent placement in the past 3. History of right breast cancer status post lumpectomy and radiation treatment 4. History of paroxysmal atrial fibrillation 5. Hyperlipidemia 6. Essential hypertension Plan - Discharge Summary Discharge Rx Participant: No New Discharge Prescriptions: Continue Anastrozole [Arimidex] 1 mg PO DAILY Diltiazem HCl [Cardizem Cd] 120 mg PO DAILY Hydrochlorothiazide [Hydrodiuril] 12.5 mg PO DAILY Nitroglycerin Sl Tabs [Nitrostat] 0.4 mg SUBLINGUAL Q5M PRN PRN Reason: Chest Pain Cholecalciferol [Vitamin D3] 1,000 unit PO DAILY Aspirin EC [Ecotrin Low Dose] 81 mg PO DAILY #30 tablet. Irbesartan [Avapro] 150 mg PO DAILY Metoprolol Tartrate [Lopressor] 25 mg PO BID Fluticasone/Vilanterol [Breo Ellipta 200-25 Mcg INH] 1 puff INHALATION RT- DAILY Isosorbide Mononitrate ER [Imdur] 30 mg PO DAILY tab.er.24h Pantoprazole [Protonix] 40 mg PO AC-BRKFST tablet. Ferrous Sulfate [Feosol] 325 mg PO DAILY 30 Days #30 tab diphenhydrAMINE HCL [Benadryl] 25 mg PO HS Nystatin 100,000Unit/gm Cream [Mycostatin Cream] 1 applic TOPICAL BID PRN PRN Reason: Rash Discharge Medication List Anastrozole [Arimidex] 1 mg PO DAILY 03/07/15 [History] Diltiazem HCl [Cardizem Cd] 120 mg PO DAILY 01/05/16 [History] Hydrochlorothiazide [Hydrodiuril] 12.5 mg PO DAILY 01/05/16 [History] Cholecalciferol [Vitamin D3] 1,000 unit PO DAILY 01/20/16 [History] Nitroglycerin Sl Tabs [Nitrostat] 0.4 mg SUBLINGUAL Q5M PRN 01/20/16 [History] Aspirin EC [Ecotrin Low Dose] 81 mg PO DAILY #30 tablet. 01/23/16 [Rx] Fluticasone/Vilanterol [Breo Ellipta 200-25 Mcg INH] 1 puff INHALATION RT-DAILY 09/04/17 [History] Irbesartan [Avapro] 150 mg PO DAILY 09/04/17 [History] Metoprolol Tartrate [Lopressor] 25 mg PO BID 09/04/17 [History] Ferrous Sulfate [Feosol] 325 mg PO DAILY 30 Days #30 tab 09/08/17 [Rx] Isosorbide Mononitrate ER [Imdur] 30 mg PO DAILY tab.er.24h 09/08/17 [Rx] Pantoprazole [Protonix] 40 mg PO AC-BRKFST tablet. 09/08/17 [Rx] Nystatin 100,000Unit/gm Cream [Mycostatin Cream] 1 applic TOPICAL BID PRN [History] diphenhydrAMINE HCL [Benadryl] 25 mg PO HS 01/28/18 [History] Follow up Appointment(s)/Referral(s): Poncho García MD [STAFF PHYSICIAN] - 02/18/18 3:30 pm Dayanna Izquierdo MD [Primary Care Provider] - 1-2 days Patient Instructions/Handouts: Chest Pain (DC) Discharge Disposition: HOME SELF-CARE
== END 2018-01-29 18:15 | disposition home or self-care (01) ==
LOC: EC 11:46 → 3OBS 12:52
PROVIDERS: ADMIT Internal Medicine; ATTEND Internal Medicine
DX: R07.89 Other chest pain (principal); R06.02 Shortness of breath; R07.2 Precordial pain; R00.2 Palpitations; R42 Dizziness and giddiness; I25.10 Atherosclerotic heart disease of native coronary artery without angina pectoris; I48.0 Paroxysmal atrial fibrillation; E78.5 Hyperlipidemia, unspecified; I10 Essential (primary) hypertension; I25.2 Old myocardial infarction; J44.9 Chronic obstructive pulmonary disease, unspecified; G40.909 Epilepsy, unspecified, not intractable, without status epilepticus; M19.90 Unspecified osteoarthritis, unspecified site; K21.9 Gastro-esophageal reflux disease without esophagitis; I73.9 Peripheral vascular disease, unspecified; I44.2 Atrioventricular block, complete; I27.20 Pulmonary hypertension, unspecified; M47.9 Spondylosis, unspecified; M54.31 Sciatica, right side; Z87.19 Personal history of other diseases of the digestive system; Z87.891 Personal history of nicotine dependence; Z87.11 Personal history of peptic ulcer disease; Z85.3 Personal history of malignant neoplasm of breast; Z95.0 Presence of cardiac pacemaker; Z95.5 Presence of coronary angioplasty implant and graft; Z92.3 Personal history of irradiation; D50.9 Iron deficiency anemia, unspecified; Z91.81 History of falling; Z87.09 Personal history of other diseases of the respiratory system; Z82.49 Family history of ischemic heart disease and other diseases of the circulatory system; Z80.3 Family history of malignant neoplasm of breast; Z80.0 Family history of malignant neoplasm of digestive organs; Z79.899 Other long term (current) drug therapy; Z79.811 Long term (current) use of aromatase inhibitors; Z79.51 Long term (current) use of inhaled steroids; Z79.82 Long term (current) use of aspirin; Z91.048 Other nonmedicinal substance allergy status; Z88.0 Allergy status to penicillin; Z88.1 Allergy status to other antibiotic agents; Z88.2 Allergy status to sulfonamides
CPT/HCPCS: 99285; 96372 ×2; 36415; 94640; 93005; 93017; 85379; 80061; 80053 ×2; 82550; 82553; 83735; 84484; 85025 ×2; 85610; 85730; 71046; 71275; 78452; G0378 ×2; A9500; J1644 ×2; S0170; J2785; J0280; Q9967

== ENCOUNTER 2018-02-07 11:05 | Inpatient (IN) | payer MEDICARE, OTHER ==
[2018-02-07] MEDS ORDERED: SODIUM CHLORIDE 0.9% 500 ML IV STA (11:27)
--- NOTE | 2018-02-07 11:32 | ED ---
General Adult HPI - General Chief complaint: Weakness Stated complaint: weakness Time Seen by Provider: 02/07/18 11:05 Source: EMS, RN notes reviewed Mode of arrival: EMS Limitations: no limitations - History of Present Illness Initial comments: This is an 82-year-old female presents emergency Department complaining of feeling weak over the last 2 weeks. Patient states is getting progressively worse. Patient states she was so weak today that she slowly went down to the ground. Patient states she did not injure anything she denies any loss of consciousness. Patient states it's just overall weakness. Patient states anytime she exerts herself lately she's also short of breath. Patient denies any chest pain or palpitations. Patient denies any lightheadedness currently but earlier did feel lightheaded when she went to the ground. Patient denies any headache patient denies numbness weakness. Patient denies any abdominal pain patient denies nausea vomiting or diarrhea. Patient states she does have a history of some anemia. She does know why she is anemic however. Patient denies any blood thinners. - Related Data Home Medications Medication Instructions Recorded Confirmed Anastrozole [Arimidex] 1 mg PO DAILY 03/07/15 02/07/18 Diltiazem HCl [Cardizem Cd] 120 mg PO DAILY 01/05/16 02/07/18 Hydrochlorothiazide [Hydrodiuril] 12.5 mg PO DAILY 01/05/16 02/07/18 Cholecalciferol [Vitamin D3] 1,000 unit PO DAILY 01/20/16 02/07/18 Nitroglycerin Sl Tabs [Nitrostat] 0.4 mg SUBLINGUAL Q5M PRN 01/20/16 02/07/18 Fluticasone/Vilanterol [Breo 1 puff INHALATION RT-DAILY 09/04/17 02/07/18 Ellipta 200-25 Mcg INH] Irbesartan [Avapro] 150 mg PO DAILY 09/04/17 02/07/18 Metoprolol Tartrate [Lopressor] 25 mg PO BID 09/04/17 02/07/18 Nystatin 100,000Unit/gm Cream 1 applic TOPICAL BID PRN 01/28/18 02/07/18 [Mycostatin Cream] diphenhydrAMINE HCL [Benadryl] 25 mg PO HS 06/19/18 06/29/18 Previous Rx's Medication Instructions Recorded Aspirin EC [Ecotrin Low Dose] 81 mg PO DAILY #30 tablet. 01/23/16 Ferrous Sulfate [Feosol] 325 mg PO DAILY 30 Days #30 tab 09/08/17 Isosorbide Mononitrate ER [Imdur] 30 mg PO DAILY tab.er.24h 09/08/17 Pantoprazole [Protonix] 40 mg PO AC-BRKFST tablet. 09/08/17 Allergies Allergy/AdvReac Type Severity Reaction Status Date / Time adhesive Allergy Unknown Verified 02/07/18 11:36 cephalexin monohydrate Allergy Unknown Verified 02/07/18 11:36 [From Keflex] ciprofloxacin [From Cipro] Allergy Unknown Verified 02/07/18 11:36 ciprofloxacin HCl Allergy Unknown Verified 02/07/18 11:36 [From Cipro] Penicillins Allergy Rash/Hives Verified 02/07/18 11:36 Sulfa (Sulfonamide Allergy Rash/Hives Verified 02/07/18 11:36 Antibiotics) Review of Systems ROS Statement: Those systems with pertinent positive or pertinent negative responses have been documented in the HPI. ROS Other: All systems not noted in ROS Statement are negative. Past Medical History Past Medical History: Atrial Fibrillation, Coronary Artery Disease (CAD), Cancer , Chest Pain / Angina, GERD/Reflux, Hypertension, Myocardial Infarction ([place]), Osteoarthritis (OA), Pneumonia, Seizure Disorder Additional Past Medical History / Comment(s): R breast cancer with lumpectomy/ radiation, CHB with pacer, cerebral aneurysm, arthritis multiple joints and in neck/back, sciatica right sided, balance issues at times, fall with concussion, multiple bronchitis, iron deficiency anemia, UTIs, stomach ulcer in past. Last Myocardial Infarction Date:: 2014 History of Any Multi-Drug Resistant Organisms: None Reported Past Surgical History: Appendectomy, Back Surgery, Breast Surgery, Heart Catheterization With Stent, Hysterectomy, Joint Replacement, Pacemaker Additional Past Surgical History / Comment(s): right breast lumpectomy, cervical surgery, lumbar surgery, left shoulder replaced, right thumb surgery, CARDIAC STENTS TO RCA AND CIRC, EVY HIP REPLACMENTS (DONE IN [place]), EVY CATARACTS, EGD/colonoscopy, capsule endoscopy, hemorrhoidectomy. Past Anesthesia/Blood Transfusion Reactions: No Reported Reaction Date of Last Stent Placement:: 03/10/15 Type of Cardiac Device: Biventricular Pacemaker Device Placement Date:: originally placed in 2005 and d/t L total shoulder surgery, moved 06/18/11 Past Psychological History: No Psychological Hx Reported Smoking Status: Former smoker - Past Family History Father Additional Family Medical History / Comment(s): kidney problem, heart attack Mother Family Medical History: Cancer Additional Family Medical History / Comment(s): colon ca, breast ca, MOM LIVED TO BE 98 YEARS OLD Sister(s) Family Medical History: Cancer Additional Family Medical History / Comment(s): colon ca, breast ca General Exam - General Exam Comments Initial Comments: GENERAL: Patient is well-developed and well-nourished. Patient is nontoxic and well- hydrated and is in no acute distress. ENT: Neck is soft and supple. No significant lymphadenopathy is noted. Oropharynx is clear. Moist mucous membranes. Neck has full range of motion without eliciting any pain. EYES: The sclera were anicteric and conjunctiva were pink and moist. Extraocular movements were intact and pupils were equal round and reactive to light. Eyelids were unremarkable. PULMONARY: Unlabored respirations. Good breath sounds bilaterally. No audible rales rhonchi or wheezing was noted. CARDIOVASCULAR: There is a regular rate and rhythm without any murmurs gallops or rubs. ABDOMEN: Soft and nontender with normal bowel sounds. No palpable organomegaly was noted. There is no palpable pulsatile mass. SKIN: Patient's skin and conjunctiva are pale. NEUROLOGIC: Patient is alert and oriented x3. Cranial nerves II through XII are grossly intact. Motor and sensory are also intact. Normal speech, volume and content. Symmetrical smile. MUSCULOSKELETAL: Normal extremities with adequate strength and full range of motion. No lower extremity swelling or edema. No calf tenderness. LYMPHATICS: No significant lymphadenopathy is noted PSYCHIATRIC: Normal psychiatric evaluation. Normal interpersonal interactions appears functionally intact in deals appropriately with others. No signs of depression. No signs of anxiety. Limitations: no limitations Course Vital Signs 02/07/18 02/07/18 02/07/18 11:09 12:01 12:09 Temperature 97.2 F L Pulse Rate 80 60 60 Respiratory 18 18 20 Rate Blood Pressure 87/40 65/37 72/38 O2 Sat by Pulse 95 100 100 Oximetry 02/07/18 02/07/18 02/07/18 12:57 13:56 15:04 Temperature 97.6 F Pulse Rate 60 60 61 Respiratory 18 18 18 Rate Blood Pressure 84/42 109/42 105/37 O2 Sat by Pulse 100 Oximetry 02/07/18 02/07/18 15:13 15:14 Temperature 97.6 F 97.8 F Pulse Rate 61 62 Respiratory 18 16 Rate Blood Pressure 105/37 92/48 O2 Sat by Pulse Oximetry Medical Decision Making - Medical Decision Making EKG shows a ventricularly paced rhythm at 60 bpm QRS is under 56 QT intervals 498 QTC is 498. Patient's EKG shows no acute abnormalities Patient was still feeling ill so a repeat EKG was done and showed a paced rhythm beats per minute QRS is 142 QT intervals 516 QTC was 516. Patient's hemoglobin was low at 5.2 so I gave the patient 2 units of packed red blood cells. I spoke with Dr. Saleh he agreed to admit the patient admitted the patient to the ICU I called the ICU doctors. I consult it GI and I did serial CBCs. - Lab Data Result diagrams: 02/07/18 14:06 02/07/18 12:30 Lab Results 02/07/18 02/07/18 02/07/18 Range/Units 12:30 12:30 12:30 WBC 4.5 (3.8-10.6) k/uL RBC 1.77 L (3.80-5.40) m/uL Hgb 5.2 L* D (11.4-16.0) gm/dL Hct 16.7 L* (34.0-46.0) % MCV 94.4 D (80.0-100.0) fL MCH 29.6 (25.0-35.0) pg MCHC 31.4 (31.0-37.0) g/dL RDW 19.7 H (11.5-15.5) % Plt Count 286 (150-450) k/uL Neutrophils % 69 % Lymphocytes % 19 % Monocytes % 8 % Eosinophils % 2 % Basophils % 0 % Neutrophils # 3.1 (1.3-7.7) k/uL Lymphocytes # 0.8 L (1.0-4.8) k/uL Monocytes # 0.4 (0-1.0) k/uL Eosinophils # 0.1 (0-0.7) k/uL Basophils # 0.0 (0-0.2) k/uL Anisocytosis Slight Macrocytosis Slight PT 11.1 (9.0-12.0) sec INR 1.2 H (<1.2) APTT 22.9 (22.0-30.0) sec Sodium 134 L (137-145) mmol/L Potassium 4.5 (3.5-5.1) mmol/L Chloride 104 (98-107) mmol/L Carbon Dioxide 18 L (22-30) mmol/L Anion Gap 12 mmol/L BUN 42 H (7-17) mg/dL Creatinine 0.70 (0.52-1.04) mg/dL Est GFR (CKD-EPI)AfAm >90 (>60 ml/min/1.73 sqM) Est GFR (CKD-EPI)NonAf 81 (>60 ml/min/1.73 sqM) Glucose 98 (74-99) mg/dL Plasma Lactic Acid Lucio (0.7-2.0) mmol/L Calcium 7.8 L (8.4-10.2) mg/dL Magnesium 1.9 (1.6-2.3) mg/dL Total Bilirubin 0.3 (0.2-1.3) mg/dL AST 40 H (14-36) U/L ALT 28 (9-52) U/L Alkaline Phosphatase 45 (38-126) U/L Total Creatine Kinase (30-135) U/L CK-MB (CK-2) (0.0-2.4) ng/mL CK-MB (CK-2) Rel Index Troponin I (0.000-0.034) ng/mL Total Protein 5.0 L (6.3-8.2) g/dL Albumin 2.8 L (3.5-5.0) g/dL Stool Occult Blood (Negative) Blood Type Blood Type Recheck Antibody Screen Crossmatch Spec Expiration Date 02/07/18 02/07/18 02/07/18 Range/Units 12:30 12:30 14:00 WBC (3.8-10.6) k/uL RBC (3.80-5.40) m/uL Hgb (11.4-16.0) gm/dL Hct (34.0-46.0) % MCV (80.0-100.0) fL MCH (25.0-35.0) pg MCHC (31.0-37.0) g/dL RDW (11.5-15.5) % Plt Count (150-450) k/uL Neutrophils % % Lymphocytes % % Monocytes % % Eosinophils % % Basophils % % Neutrophils # (1.3-7.7) k/uL Lymphocytes # (1.0-4.8) k/uL Monocytes # (0-1.0) k/uL Eosinophils # (0-0.7) k/uL Basophils # (0-0.2) k/uL Anisocytosis Macrocytosis PT (9.0-12.0) sec INR (<1.2) APTT (22.0-30.0) sec Sodium (137-145) mmol/L Potassium (3.5-5.1) mmol/L Chloride (98-107) mmol/L Carbon Dioxide (22-30) mmol/L Anion Gap mmol/L BUN (7-17) mg/dL Creatinine (0.52-1.04) mg/dL Est GFR (CKD-EPI)AfAm (>60 ml/min/1.73 sqM) Est GFR (CKD-EPI)NonAf (>60 ml/min/1.73 sqM) Glucose (74-99) mg/dL Plasma Lactic Acid Lucio 2.2 H* (0.7-2.0) mmol/L Calcium (8.4-10.2) mg/dL Magnesium (1.6-2.3) mg/dL Total Bilirubin (0.2-1.3) mg/dL AST (14-36) U/L ALT (9-52) U/L Alkaline Phosphatase (38-126) U/L Total Creatine Kinase 37 (30-135) U/L CK-MB (CK-2) 1.2 (0.0-2.4) ng/mL CK-MB (CK-2) Rel Index 3.2 Troponin I 0.021 (0.000-0.034) ng/mL Total Protein (6.3-8.2) g/dL Albumin (3.5-5.0) g/dL Stool Occult Blood (Negative) Blood Type O Positive Blood Type Recheck No Antibody Screen NEGATIVE Crossmatch See Detail Spec Expiration Date 02/10/2018 - 2300 06/29/18 06/29/18 Range/Units 14:06 14:20 WBC 5.9 (3.8-10.6) k/uL RBC 1.89 L (3.80-5.40) m/uL Hgb 5.7 L* (11.4-16.0) gm/dL Hct 17.8 L* (34.0-46.0) % MCV 94.6 (80.0-100.0) fL MCH 30.2 (25.0-35.0) pg MCHC 31.9 (31.0-37.0) g/dL RDW 19.6 H (11.5-15.5) % Plt Count 281 (150-450) k/uL Neutrophils % 68 % Lymphocytes % 22 % Monocytes % 6 % Eosinophils % 2 % Basophils % 0 % Neutrophils # 4.0 (1.3-7.7) k/uL Lymphocytes # 1.3 (1.0-4.8) k/uL Monocytes # 0.4 (0-1.0) k/uL Eosinophils # 0.1 (0-0.7) k/uL Basophils # 0.0 (0-0.2) k/uL Anisocytosis Slight Macrocytosis Slight PT (9.0-12.0) sec INR (<1.2) APTT (22.0-30.0) sec Sodium (137-145) mmol/L Potassium (3.5-5.1) mmol/L Chloride (98-107) mmol/L Carbon Dioxide (22-30) mmol/L Anion Gap mmol/L BUN (7-17) mg/dL Creatinine (0.52-1.04) mg/dL Est GFR (CKD-EPI)AfAm (>60 ml/min/1.73 sqM) Est GFR (CKD-EPI)NonAf (>60 ml/min/1.73 sqM) Glucose (74-99) mg/dL Plasma Lactic Acid Lucio (0.7-2.0) mmol/L Calcium (8.4-10.2) mg/dL Magnesium (1.6-2.3) mg/dL Total Bilirubin (0.2-1.3) mg/dL AST (14-36) U/L ALT (9-52) U/L Alkaline Phosphatase (38-126) U/L Total Creatine Kinase (30-135) U/L CK-MB (CK-2) (0.0-2.4) ng/mL CK-MB (CK-2) Rel Index Troponin I (0.000-0.034) ng/mL Total Protein (6.3-8.2) g/dL Albumin (3.5-5.0) g/dL Stool Occult Blood Positive H (Negative) Blood Type Blood Type Recheck Antibody Screen Crossmatch Spec Expiration Date Disposition Clinical Impression: Anemia, GI bleed Disposition[facility] Referrals: Dayanna Izquierdo MD [Primary Care Provider] - 1-2 days Time of Disposition: 15:36
[2018-02-07 13:05] LABS: INR 1.2 (<1.2); Partial Thromboplastin Time 22.9 sec (22.0-30.0); Prothrombin Time 11.1 sec (9.0-12.0)
--- NOTE | 2018-02-07 13:15 | XR ---
EXAMINATION TYPE: XR chest 2V DATE OF EXAM: 02/07/2018 COMPARISON: 01/28/2018 HISTORY: 82-year-old female with weakness TECHNIQUE: AP and lateral views FINDINGS: Left anterior chest wall pacemaker generator with right atrial and right ventricular leads. Heart normal size. Similar mild elongation of the thoracic aorta. Pulmonary vasculature within normal limits. No consolidation or effusion. Partially visualized left shoulder arthroplasty. IMPRESSION: Chronic changes without acute cardiopulmonary process.
[2018-02-07 13:21] LABS: ALT 28 U/L (9-52); AST 40 U/L (14-36); Albumin 2.8 g/dL (3.5-5.0); Alkaline Phosphatase 45 U/L (38-126); Anion Gap 12 mmol/L; Blood Urea Nitrogen 42 mg/dL (7-17); Calcium 7.8 mg/dL (8.4-10.2); Carbon Dioxide 18 mmol/L (22-30); Chloride 104 mmol/L (98-107); Glucose 98 mg/dL (74-99); Magnesium 1.9 mg/dL (1.6-2.3); Sodium 134 mmol/L (137-145); Total Bilirubin 0.3 mg/dL (0.2-1.3)
[2018-02-07 13:23] LABS: Potassium 4.5 mmol/L (3.5-5.1)
[2018-02-07 13:30] LABS: Anisocytosis Slight; Basophils % (A) 0 %; Eosinophils # (A) 0.1 k/uL (0-0.7); Eosinophils % (A) 2 %; Lymphocytes # (A) 0.8 k/uL (1.0-4.8); Lymphocytes % (A) 19 %; MCH 29.6 pg (25.0-35.0); MCHC 31.4 g/dL (31.0-37.0); MCV 94.4 fL (80.0-100.0); Macrocytosis Slight; Mean Platelet Volume 6.9; Monocytes # (A) 0.4 k/uL (0-1.0); Monocytes % (A) 8 %; Neutrophils # (A) 3.1 k/uL (1.3-7.7); Neutrophils % (A) 69 %; Platelet Count 286 k/uL (150-450); RBC 1.77 m/uL (3.80-5.40); RDW 19.7 % (11.5-15.5); WBC 4.5 k/uL (3.8-10.6)
[2018-02-07 13:32] LABS: Creatine Kinase MB 1.2 ng/mL (0.0-2.4); Troponin I 0.021 ng/mL (0.000-0.034)
[2018-02-07 13:45] LABS: HGB 5.2 gm/dL (11.4-16.0)
[2018-02-07 13:46] LABS: HCT 16.7 % (34.0-46.0)
[2018-02-07 14:37] LABS: Anisocytosis Slight; Basophils % (A) 0 %; Eosinophils # (A) 0.1 k/uL (0-0.7); Eosinophils % (A) 2 %; Lymphocytes # (A) 1.3 k/uL (1.0-4.8); Lymphocytes % (A) 22 %; MCH 30.2 pg (25.0-35.0); MCHC 31.9 g/dL (31.0-37.0); MCV 94.6 fL (80.0-100.0); Macrocytosis Slight; Mean Platelet Volume 7.2; Monocytes # (A) 0.4 k/uL (0-1.0); Monocytes % (A) 6 %; Neutrophils % (A) 68 %; Platelet Count 281 k/uL (150-450); RBC 1.89 m/uL (3.80-5.40); RDW 19.6 % (11.5-15.5); WBC 5.9 k/uL (3.8-10.6)
[2018-02-07 14:43] LABS: HCT 17.8 % (34.0-46.0); HGB 5.7 gm/dL (11.4-16.0)
[2018-02-07] MEDS ORDERED: NALOXONE 0.4 MG/ML 1 ML VIAL IV PRN (15:36)
[2018-02-07] MEDS ORDERED: NYSTATIN 100,000UNIT/GM CREAM 30 GM TUBE TOPICAL PRN (16:20)
[2018-02-07] MEDS ORDERED: NITROGLYCERIN SL TABS 0.4 MG TAB SUBLINGUAL PRN (16:20)
--- NOTE | 2018-02-07 16:20 | P.HPIM ---
History of Present Illness H&P Date: 02/07/18 Chief Complaint: Generalized weakness Patient is an 82-year-old female who presented to [facility] emergency room with a chief complaint of worsening generalized weakness patient stated that her symptoms started about 2 weeks ago and has been getting worse, she tried to stand up today however she felt really weak and was eased to the floor by her daughter, she was brought into emergency room she was evaluated and her hemoglobin was significantly low at 5.2 stool Hemoccult was positive blood transfusion was ordered, and patient was admitted to intensive care unit gastroenterology consultation and critical care consultation was ordered. Patient was recently admitted to [facility] on 01/28/2018 at that time she had chest pain she was evaluated by cardiology her hemoglobin was normal sinus at 12.0 Past Medical History Past Medical History: Atrial Fibrillation, Coronary Artery Disease (CAD), Cancer , Chest Pain / Angina, GERD/Reflux, Hypertension, Myocardial Infarction ([place]), Osteoarthritis ([place]), Pneumonia, Seizure Disorder Additional Past Medical History / Comment(s): R breast cancer with lumpectomy/ radiation, CHB with pacer, cerebral aneurysm, arthritis multiple joints and in neck/back, sciatica right sided, balance issues at times, fall with concussion, multiple bronchitis, iron deficiency anemia, UTIs, stomach ulcer in past. Last Myocardial Infarction Date:: 2014 History of Any Multi-Drug Resistant Organisms: None Reported Past Surgical History: Appendectomy, Back Surgery, Breast Surgery, Heart Catheterization With Stent, Hysterectomy, Joint Replacement, Pacemaker Additional Past Surgical History / Comment(s): right breast lumpectomy, cervical surgery, lumbar surgery, left shoulder replaced, right thumb surgery, CARDIAC STENTS TO RCA AND CIRC, EVY HIP REPLACMENTS (DONE IN [place]), EVY CATARACTS, EGD/colonoscopy, capsule endoscopy, hemorrhoidectomy. Past Anesthesia/Blood Transfusion Reactions: No Reported Reaction Date of Last Stent Placement:: 03/10/15 Type of Cardiac Device: Biventricular Pacemaker Device Placement Date:: originally placed in 2005 and d/t L total shoulder surgery, moved 06/18/11 Past Psychological History: No Psychological Hx Reported Smoking Status: Former smoker - Past Family History Father Additional Family Medical History / Comment(s): kidney problem, heart attack Mother Family Medical History: Cancer Additional Family Medical History / Comment(s): colon ca, breast ca, MOM LIVED TO BE 98 YEARS OLD Sister(s) Family Medical History: Cancer Additional Family Medical History / Comment(s): colon ca, breast ca Medications and Allergies Home Medications Medication Instructions Recorded Confirmed Type Anastrozole [Arimidex] 1 mg PO DAILY 03/07/15 02/07/18 History Diltiazem HCl [Cardizem Cd] 120 mg PO DAILY 01/05/16 02/07/18 History Hydrochlorothiazide [Hydrodiuril] 12.5 mg PO DAILY 01/05/16 02/07/18 History Cholecalciferol [Vitamin D3] 1,000 unit PO DAILY 01/20/16 02/07/18 History Nitroglycerin Sl Tabs [Nitrostat] 0.4 mg SUBLINGUAL Q5M PRN 01/20/16 02/07/18 History Aspirin EC [Ecotrin Low Dose] 81 mg PO DAILY #30 tablet. 01/23/16 02/07/18 Rx Fluticasone/Vilanterol [Breo 1 puff INHALATION RT-DAILY 09/04/17 02/07/18 History Ellipta 200-25 Mcg INH] Irbesartan [Avapro] 150 mg PO DAILY 09/04/17 02/07/18 History Metoprolol Tartrate [Lopressor] 25 mg PO BID 09/04/17 02/07/18 History Ferrous Sulfate [Feosol] 325 mg PO DAILY 30 Days #30 tab 09/08/17 02/07/18 Rx Isosorbide Mononitrate ER [Imdur] 30 mg PO DAILY tab.er.24h 09/08/17 02/07/18 Rx Pantoprazole [Protonix] 40 mg PO AC-BRKFST tablet. 09/08/17 02/07/18 Rx Nystatin 100,000Unit/gm Cream 1 applic TOPICAL BID PRN 01/28/18 02/07/18 History [Mycostatin Cream] diphenhydrAMINE HCL [Benadryl] 25 mg PO HS 01/28/18 02/07/18 History Allergies Allergy/AdvReac Type Severity Reaction Status Date / Time adhesive Allergy Unknown Verified 02/07/18 11:36 cephalexin monohydrate Allergy Unknown Verified 02/07/18 11:36 [From Keflex] ciprofloxacin [From Cipro] Allergy Unknown Verified 06/29/18 11:36 ciprofloxacin HCl Allergy Unknown Verified 02/07/18 11:36 [From Cipro] Penicillins Allergy Rash/Hives Verified 02/07/18 11:36 Sulfa (Sulfonamide Allergy Rash/Hives Verified 02/07/18 11:36 Antibiotics) Physical Exam Vitals: Vital Signs Temp Pulse Resp BP Pulse Ox 02/07/18 15:14 97.8 F 62 16 92/48 02/07/18 15:13 97.6 F 61 18 105/37 02/07/18 15:04 97.6 F 61 18 105/37 02/07/18 13:56 60 18 109/42 02/07/18 12:57 60 18 84/42 100 02/07/18 12:09 60 20 72/38 100 02/07/18 12:01 60 18 65/37 100 02/07/18 11:09 97.2 F L 80 18 87/40 95 Intake and Output 02/07/18 02/07/18 02/07/18 06:59 14:59 22:59 Intake Total 0 Balance 0 Intake: Blood Product 0 Rc Pheresis 2 As3 Unit 0 [id number] Other: Weight 66.678 kg In general patient is alert and oriented 3 in no apparent distress HEENT head normocephalic and atraumatic Neck is supple no JVD no goiter no lymphadenopathy Chest exam is clear to auscultation no crackles no wheezing Cardiac exam reveals regular heart sounds no gallops no murmurs Abdomen is soft nontender no organomegaly with normal bowel sounds Extremity exam reveals no edema no cyanosis or clubbing Results CBC & Chem 7: 02/07/18 14:06 02/07/18 12:30 Labs: Abnormal Lab Results - Last 24 Hours (Table) 02/07/18 02/07/18 02/07/18 Range/Units 12:30 12:30 12:30 RBC 1.77 L (3.80-5.40) m/uL Hgb 5.2 L* D (11.4-16.0) gm/dL Hct 16.7 L* (34.0-46.0) % RDW 19.7 H (11.5-15.5) % Lymphocytes # 0.8 L (1.0-4.8) k/uL INR 1.2 H (<1.2) Sodium 134 L (137-145) mmol/L Carbon Dioxide 18 L (22-30) mmol/L BUN 42 H (7-17) mg/dL Plasma Lactic Acid Lucio (0.7-2.0) mmol/L Calcium 7.8 L (8.4-10.2) mg/dL AST 40 H (14-36) U/L Total Protein 5.0 L (6.3-8.2) g/dL Albumin 2.8 L (3.5-5.0) g/dL Stool Occult Blood (Negative) Crossmatch 02/07/18 02/07/18 02/07/18 Range/Units 12:30 14:00 14:06 RBC 1.89 L (3.80-5.40) m/uL Hgb 5.7 L* (11.4-16.0) gm/dL Hct 17.8 L* (34.0-46.0) % RDW 19.6 H (11.5-15.5) % Lymphocytes # (1.0-4.8) k/uL INR (<1.2) Sodium (137-145) mmol/L Carbon Dioxide (22-30) mmol/L BUN (7-17) mg/dL Plasma Lactic Acid Lucio 2.2 H* (0.7-2.0) mmol/L Calcium (8.4-10.2) mg/dL AST (14-36) U/L Total Protein (6.3-8.2) g/dL Albumin (3.5-5.0) g/dL Stool Occult Blood (Negative) Crossmatch See Detail 02/07/18 Range/Units 14:20 RBC (3.80-5.40) m/uL Hgb (11.4-16.0) gm/dL Hct (34.0-46.0) % RDW (11.5-15.5) % Lymphocytes # (1.0-4.8) k/uL INR (<1.2) Sodium (137-145) mmol/L Carbon Dioxide (22-30) mmol/L BUN (7-17) mg/dL Plasma Lactic Acid Lucio (0.7-2.0) mmol/L Calcium (8.4-10.2) mg/dL AST (14-36) U/L Total Protein (6.3-8.2) g/dL Albumin (3.5-5.0) g/dL Stool Occult Blood Positive H (Negative) Crossmatch Assessment and Plan Plan: #1 severe anemia hemoglobin is down to 5.2 possibly related to acute blood loss , stool Hemoccult positive. Patient stated that she had previous history of anemia and has been taking iron pills she stated that her stool was black recently but was unable to tell if it's related to the iron pills #2 generalized weakness likely related to 1 #3 underlying history of coronary artery disease with recent admission to [facility] and evaluation by cardiology. #4 underlying history of pacemaker placement #5 underlying history of hypertension At this time plan is to admit to intensive care unit transfused 2 units of red blood cells monitor hemoglobin closely Gastroenterology and critical care consultation requested
[2018-02-07 18:24] VITALS: BMI 26.9
[2018-02-07] MEDS: SYMBICORT 160-4.5 MCG INHALER INHALATION SCH (20:01)
[2018-02-07] MEDS: METOPROLOL TARTRATE 25 MG TAB PO SCH (21:15)
[2018-02-07 22:13] LABS: Anisocytosis Slight; HCT 22.6 % (34.0-46.0); MCH 30.1 pg (25.0-35.0); MCHC 33.4 g/dL (31.0-37.0); MCV 90.2 fL (80.0-100.0); Platelet Count 217 k/uL (150-450); RBC 2.51 m/uL (3.80-5.40); RDW 18.1 % (11.5-15.5); WBC 3.8 k/uL (3.8-10.6)
[2018-02-07 22:23] LABS: HGB 7.6 gm/dL (11.4-16.0)
[2018-02-07] MEDS: diphenhydrAMINE 25 MG CAP PO SCH (23:02)
[2018-02-08 04:46] LABS: Anisocytosis Slight; Basophils % (A) 1 %; Eosinophils # (A) 0.3 k/uL (0-0.7); Eosinophils % (A) 8 %; HCT 24.6 % (34.0-46.0); Lymphocytes # (A) 0.9 k/uL (1.0-4.8); Lymphocytes % (A) 28 %; MCH 30.1 pg (25.0-35.0); MCHC 32.6 g/dL (31.0-37.0); MCV 92.4 fL (80.0-100.0); Macrocytosis Slight; Mean Platelet Volume 6.6; Monocytes # (A) 0.3 k/uL (0-1.0); Monocytes % (A) 9 %; Neutrophils # (A) 1.6 k/uL (1.3-7.7); Neutrophils % (A) 53 %; Platelet Count 254 k/uL (150-450); Poikilocytosis Slight; RBC 2.66 m/uL (3.80-5.40); RDW 19.5 % (11.5-15.5); WBC 3.1 k/uL (3.8-10.6)
[2018-02-08 05:04] LABS: Anion Gap 8 mmol/L; Blood Urea Nitrogen 23 mg/dL (7-17); Calcium 8.2 mg/dL (8.4-10.2); Carbon Dioxide 20 mmol/L (22-30); Chloride 111 mmol/L (98-107); Glucose 81 mg/dL (74-99); Phosphorus 3.1 mg/dL (2.5-4.5); Potassium 3.9 mmol/L (3.5-5.1); Sodium 139 mmol/L (137-145)
[2018-02-08] MEDS ORDERED: PANTOPRAZOLE 40 MG TABLET PO SCH (07:30)
[2018-02-08] MEDS ORDERED: PROPOFOL 10 MG/ML 20 ML VIAL IV ONE (08:08)
[2018-02-08] MEDS ORDERED: LIDOCAINE 1% INJ 10MG/ML (20 ML MDV) ONE (08:08)
--- NOTE | 2018-02-08 08:56 | CONS ---
CONSULTATION DATE OF SURGERY: February 08, 2018. REQUESTING PHYSICIAN: Dr. Saleh. REASON FOR CONSULTATION: Severe symptomatic anemia and dark colored stools. HISTORY OF PRESENT ILLNESS: The patient is an 82-year-old pleasant white female who was admitted to the hospital to the Intensive Care Unit yesterday when she presented with generalized weakness and fatigue for the last 2-3 weeks duration. She also has been having intermittent dark- colored stools for the same duration. In the emergency room, she was noted to have a hemoglobin of 5.2, and stool was Hemoccult positive and hence we are consulted. The patient denies any abdominal pain. She reports no nausea, vomiting. She has been taking Aleve as well as aspirin on a regular basis for the last several months for severe degenerative joint disease. She had peptic ulcer disease many years ago. PAST MEDICAL HISTORY: Significant for hypertension, coronary artery disease, history of atrial fibrillation and GERD, hypertension, degenerative joint disease, history of breast cancer with lumpectomy and radiation many years ago. PAST SURGICAL HISTORY: Appendectomy, back surgery, right breast lumpectomy, hysterectomy, pacemaker implantation, cardiac stent placement, bilateral cataract surgery. MEDICATIONS: At home include Arimidex, Cardizem, HydroDIURIL, vitamin D3, Nitrostat, aspirin, and Ellipta, Avapro, Lopressor, Feosol, Protonix, Imdur, and Benadryl, Mycostatin cream. ALLERGIES: To SULFA, PENICILLIN, CIPRO, KEFLEX. SOCIAL HISTORY: No smoking or alcohol use. FAMILY HISTORY: Mother had colon cancer and breast cancer. Sister had breast cancer. Father had kidney problem. REVIEW OF SYSTEMS: Cardiopulmonary no chest pain, shortness of breath. Genitourinary: No dysuria or hematuria. Musculoskeletal: Unremarkable. Skin: Unremarkable. Endocrine: Unremarkable. Psychiatric: Unremarkable. Neurological: Unremarkable. ENT vision unremarkable. Constitutional: No recent weight loss. No fever, chills, night sweats. PHYSICAL EXAMINATION: She appears comfortable. No apparent distress. VITAL SIGNS: Stable. Blood pressure is 97/51, pulse 63, temperature 98.4. HEENT examination unremarkable. Conjunctivae pink. Sclerae anicteric. The oral cavity no lesions. Neck: No jugular venous distention or lymph node enlargement. The chest was clear to auscultation. HEART: Regular rate and rhythm. ABDOMEN: Soft, it was nontender, nondistended. Bowel sounds are positive. No organomegaly. Extremities: No pedal edema. Skin no rashes. Neuro: She is alert and oriented x3. No focal deficits. LABS: At the time of admission to the hospital: Hemoglobin 5.7, WBC 5.9, platelets 281. Today after 2 units, hemoglobin is 8, WBC 3.1, and platelets are 254. BUN is 52, creatinine 0.6. Stool Hemoccult was positive. IMPRESSION: This is a lady who presents to the hospital with severe symptomatic anemia with a hemoglobin of 5.7, requiring 2 units of blood transfusion. She has been having intermittent dark-colored stools. Has been taking Aleve and aspirin for degenerative joint disease for the last several months duration. She does have prior history of peptic ulcer disease many years ago. She recalls having a colonoscopy about 2 years ago that was unremarkable. Clinically no active bleeding. RECOMMENDATIONS: 1. We will proceed with an upper endoscopy today. 2. Agree with blood transfusion. 3. Continue with Protonix 40 mg daily. 4. CBC on a daily basis and we will follow the patient closely during hospital stay. Thank you for this consultation. MMODL / IJN: [id number] /
[2018-02-08] MEDS: SYMBICORT 160-4.5 MCG INHALER INHALATION SCH ×2 (08:58→19:45)
--- NOTE | 2018-02-08 09:55 | P.PCN ---
Date of Procedure: 02/08/18 Procedure(s) Performed: BRIEF HISTORY: Patient is a 82-year-old, pleasant, white female, admitted to the hospital with severe symptomatic anemia and intermittent dark colored stools for the last few days duration. Hemoglobin was 6.5 g/dL and received 2 units of blood transfusion. She is scheduled for an upper endoscopy because of clinical suspicion for upper GI source of bleeding.. PROCEDURE PERFORMED: Esophagogastroduodenoscopy with biopsy. PREOPERATIVE DIAGNOSIS: Severe symptomatic anemia and intermittent dark colored stools a few days duration. IV sedation per anesthesia. PROCEDURE: After informed consent was obtained, the patient was brought into the endoscopy unit. IV sedation was administered by Anesthesia under continuous monitoring. Initially the Olympus GIF-140 video endoscope was inserted into the mouth. Esophagus intubated without any difficulty. It was gradually advanced into the stomach and duodenum and carefully examined. The bulb and the second part of the duodenum appeared normal. The scope at this time was withdrawn to the stomach, adequately insufflated with air, and upon careful examination, mucosa of the antrum had and there were 2 superficial antral ulcerations identified measuring about 5 mm and 7 mm in size with no active bleeding. Biopsies were done from this area. There are multiple erosions noted in the antrum of the stomach also. The, body, cardia and the fundus appeared normal. The scope was then withdrawn into the esophagus. The GE junction was located at 39 cm from the incisors. The esophagus appeared normal. There were no erosions or ulcerations seen and the patient tolerated the procedure well. IMPRESSION: 1. 2 superficial antral ulcers measuring 5 m and 7 mm in size with no active bleeding. 2. Antral erosive gastritis. RECOMMENDATIONS: The findings of this examination were discussed with the patient. At this time she'll be started on a clear liquid diet and advance as tolerated. CBC in the morning. Continue with Protonix 40 mg twice daily..
[2018-02-08] MEDS: METOPROLOL TARTRATE 25 MG TAB PO SCH ×2 (09:57→21:49)
[2018-02-08] MEDS: ANASTROZOLE 1 MG TAB PO SCH (09:57)
[2018-02-08] MEDS: ISOSORBIDE MONONITRATE ER 30 MG TAB.ER.24H PO SCH (09:57)
[2018-02-08] MEDS: LOSARTAN 50 MG TAB PO SCH (09:58)
[2018-02-08] MEDS: CHOLECALCIFEROL 1,000 UNIT TAB PO SCH (09:58)
[2018-02-08] MEDS: PANTOPRAZOLE 40 MG TABLET PO SCH ×2 (09:58→18:05)
[2018-02-08] MEDS: DILTIAZEM CD 120 MG CAP.ER.24H PO SCH (09:59)
--- NOTE | 2018-02-08 10:30 | P.CNPUL ---
History of Present Illness Consult date: 02/08/18 Reason for consult: other (Profound anemia and GI bleeding) Chief complaint: Generalized weakness History of present illness: This is an 80-year-old female with history of multiple medical problems including coronary artery disease, atrial fibrillation, right breast cancer and previous lumpectomy followed by radiation, cerebral aneurysm, iron deficiency anemia, and remote history of stomach ulcer. Patient presented to the ER yesterday complaining of generalized weakness, for the last 2 weeks. In the ER , she was found to have a low hemoglobin of 5.2. And she had positive Hemoccult stools. Patient was given a total of 3 units of packed RBCs since admission, she was admitted to the ICU, and I was asked to see her on consultation. Patient is taking Aleve on a regular basis for symptoms of osteoarthritis involving the right shoulder. Patient denies any nausea vomiting or abdominal pain, denies any hematemesis, but has been noticing dark stools for the last couple of weeks. Patient responded well and had significant clinical improvement after the blood transfusions, and she is scheduled to have EGD in the next hour or so. Presently denies any headache no blurred vision no dizziness, no nausea, no vomiting, no abdominal pain, no hematemesis, no dysuria and no frequency no urgency. He does have symptoms of chronic osteoarthritis. Review of Systems 14 point review of systems were obtained, please refer to pertinent positives in HPI, otherwise remaining systems are negative. Past Medical History Past Medical History: Atrial Fibrillation, Coronary Artery Disease (CAD), Cancer , Chest Pain / Angina, GERD/Reflux, Hypertension, Myocardial Infarction (HI), Osteoarthritis (OA), Pneumonia, Seizure Disorder Additional Past Medical History / Comment(s): R breast cancer with lumpectomy/ radiation, CHB with pacer, cerebral aneurysm, arthritis multiple joints and in neck/back, sciatica right sided, balance issues at times, fall with concussion, multiple bronchitis, iron deficiency anemia, UTIs, stomach ulcer in past. Last Myocardial Infarction Date:: 2014 History of Any Multi-Drug Resistant Organisms: None Reported Past Surgical History: Appendectomy, Back Surgery, Breast Surgery, Heart Catheterization With Stent, Hysterectomy, Joint Replacement, Pacemaker Additional Past Surgical History / Comment(s): right breast lumpectomy, cervical surgery, lumbar surgery, left shoulder replaced, right thumb surgery, CARDIAC STENTS TO RCA AND CIRC, EVY HIP REPLACMENTS (DONE IN [place]), EVY CATARACTS, EGD/colonoscopy, capsule endoscopy, hemorrhoidectomy. Past Anesthesia/Blood Transfusion Reactions: No Reported Reaction Date of Last Stent Placement:: 03/10/15 Type of Cardiac Device: Biventricular Pacemaker Device Placement Date:: originally placed in 2005 and d/t L total shoulder surgery, moved 06/18/11 Past Psychological History: No Psychological Hx Reported Additional Psychological History / Comment(s): Pt resides alone. She uses no assistive devices but owns a cane and a walker when needed. Pt drives. Smoking Status: Former smoker Past Alcohol Use History: Daily Additional Past Alcohol Use History / Comment(s): Pt started smoking in 1962 and quit in 1975. Patient drinks 1 shot of vodka before bed daily to help with sleeping Past Drug Use History: None Reported - Past Family History Father Additional Family Medical History / Comment(s): kidney problem, heart attack Mother Family Medical History: Cancer Additional Family Medical History / Comment(s): colon ca, breast ca, MOM LIVED TO BE 98 YEARS OLD Sister(s) Family Medical History: Cancer Additional Family Medical History / Comment(s): colon ca, breast ca Medications and Allergies Home Medications Medication Instructions Recorded Confirmed Type Anastrozole [Arimidex] 1 mg PO DAILY 03/07/15 02/07/18 History Diltiazem HCl [Cardizem Cd] 120 mg PO DAILY 01/05/16 02/07/18 History Hydrochlorothiazide [Hydrodiuril] 12.5 mg PO DAILY 01/05/16 02/07/18 History Cholecalciferol [Vitamin D3] 1,000 unit PO DAILY 01/20/16 02/07/18 History Nitroglycerin Sl Tabs [Nitrostat] 0.4 mg SUBLINGUAL Q5M PRN 01/20/16 02/07/18 History Aspirin EC [Ecotrin Low Dose] 81 mg PO DAILY #30 tablet. 01/23/16 02/07/18 Rx Fluticasone/Vilanterol [Breo 1 puff INHALATION RT-DAILY 09/04/17 02/07/18 History Ellipta 200-25 Mcg INH] Irbesartan [Avapro] 150 mg PO DAILY 09/04/17 02/07/18 History Metoprolol Tartrate [Lopressor] 25 mg PO BID 09/04/17 02/07/18 History Ferrous Sulfate [Feosol] 325 mg PO DAILY 30 Days #30 tab 09/08/17 02/07/18 Rx Isosorbide Mononitrate ER [Imdur] 30 mg PO DAILY tab.er.24h 09/08/17 02/07/18 Rx Pantoprazole [Protonix] 40 mg PO [id number] tablet. 09/08/17 02/07/18 Rx Nystatin 100,000Unit/gm Cream 1 applic TOPICAL BID PRN 01/28/18 02/07/18 History [Mycostatin Cream] diphenhydrAMINE HCL [Benadryl] 25 mg PO HS 01/28/18 02/07/18 History Allergies Allergy/AdvReac Type Severity Reaction Status Date / Time adhesive Allergy Unknown Verified 02/07/18 11:36 cephalexin monohydrate Allergy Unknown Verified 02/07/18 11:36 [From Keflex] ciprofloxacin [From Cipro] Allergy Unknown Verified 02/07/18 11:36 ciprofloxacin HCl Allergy Unknown Verified 02/07/18 11:36 [From Cipro] Penicillins Allergy Rash/Hives Verified 02/07/18 11:36 Sulfa (Sulfonamide Allergy Rash/Hives Verified 02/07/18 11:36 Antibiotics) Physical Exam Vitals: Vital Signs Temp Pulse Resp BP Pulse Ox 02/08/18 08:00 98.4 F 61 18 136/54 100 02/08/18 07:00 64 14 140/53 97 02/08/18 06:00 65 18 119/60 99 02/08/18 05:00 62 12 103/59 99 02/08/18 04:00 98.4 F 63 18 97/51 98 02/08/18 03:00 65 23 120/50 100 02/08/18 02:00 72 31 H 110/41 90 L 02/08/18 01:00 62 12 110/41 96 02/08/18 00:00 98.2 F 62 11 L 87/44 95 02/07/18 23:58 64 16 87/44 96 02/07/18 23:00 60 12 106/41 100 02/07/18 22:00 66 16 91/43 100 02/07/18 21:00 98.3 F 64 31 H 118/46 100 02/07/18 20:00 98.3 F 64 31 H 114/48 100 02/07/18 19:00 98.0 F 64 19 84/42 100 02/07/18 18:50 98.0 F 64 19 104/55 100 02/07/18 18:47 98.0 F 64 18 100/45 100 02/07/18 18:40 66 27 H 125/54 100 02/07/18 18:30 70 17 125/54 100 02/07/18 18:28 18 02/07/18 18:20 74 31 H 125/54 99 02/07/18 18:19 98.2 F 63 16 98/42 94 L 02/07/18 18:15 66 25 H 02/07/18 17:51 98.0 F 63 18 84/42 100 02/07/18 17:50 98.2 F 63 16 102/54 94 L 02/07/18 16:58 97.8 F 66 18 102/57 97 02/07/18 16:57 97.8 F 66 18 102/57 97 02/07/18 15:44 97.6 F 62 18 90/46 02/07/18 15:14 97.8 F 62 16 92/48 02/07/18 15:13 97.6 F 61 18 105/37 02/07/18 15:04 97.6 F 61 18 105/37 02/07/18 13:56 60 18 109/42 02/07/18 12:57 60 18 84/42 100 02/07/18 12:09 60 20 72/38 100 02/07/18 12:01 60 18 65/37 100 02/07/18 11:09 97.2 F L 80 18 87/40 95 Intake and Output 02/07/18 02/08/18 02/08/18 22:59 06:59 14:59 Intake Total 3120 800 200 Output Total 0 1560 150 Balance 3120 -760 50 Intake: IV 800 200 0.9 800 200 Amount of Fluid Infused ( 2500 ml) Blood Product 620 Rc As-1 Unit 310 [id number] Rc Pheresis 2 As3 Unit 0 [id number] Output: Urine 0 1560 150 Other: Voiding Method Bedpan Bedside Commode Bedside Commode # Voids 1 0 # Bowel Movements 1 Weight 66.8 kg 67.3 kg Physical Exam: Revealed an 82-year-old female, pleasant, in no distress. Head: Atraumatic, normocephalic. HEENT:[Neck is supple.] [No neck masses.] [No thyromegaly.] [No JVD.] PERRLA, EOMI, no icterus was appreciated. Chest: [Clear throughout, no crackles, no rhonchi, no wheezes.] Cardiac Exam: [Normal S1 and S2, no S3 gallop, no murmur.] Abdomen: [Soft, nontender, no megaly, no rebound, no guarding, normal bowel sounds.] Extremities: [No clubbing, no edema, no cyanosis.] Neurological Exam: [No focal neurologic deficit.] Lymphatics: No lymphadenopathy. Psychiatric: Normal mood affect and mental status examination. Skin: No rashes. Musculoskeletal: Normal range of motion and no deformities. Results - Laboratory Findings CBC and BMP: 02/08/18 04:11 02/08/18 04:11 PT/INR, D-dimer PT 11.1 sec (9.0-12.0) 02/07/18 12:30 INR 1.2 (<1.2) H 02/07/18 12:30 Abnormal lab findings: Abnormal Labs 02/07/18 02/07/18 02/07/18 12:30 12:30 12:30 WBC RBC 1.77 L Hgb 5.2 L* D Hct 16.7 L* RDW 19.7 H Lymphocytes # 0.8 L INR 1.2 H Sodium 134 L Chloride Carbon Dioxide 18 L BUN 42 H Plasma Lactic Acid Lucio Calcium 7.8 L AST 40 H Total Protein 5.0 L Albumin 2.8 L Stool Occult Blood Crossmatch 02/07/18 02/07/18 02/07/18 12:30 14:00 14:06 WBC RBC 1.89 L Hgb 5.7 L* Hct 17.8 L* RDW 19.6 H Lymphocytes # INR Sodium Chloride Carbon Dioxide BUN Plasma Lactic Acid Lucio 2.2 H* Calcium AST Total Protein Albumin Stool Occult Blood Crossmatch See Detail 02/07/18 02/07/18 02/08/18 14:20 21:59 04:11 WBC 3.1 L RBC 2.51 L 2.66 L Hgb 7.6 L D 8.0 L Hct 22.6 L 24.6 L RDW 18.1 H 19.5 H Lymphocytes # 0.9 L INR Sodium Chloride Carbon Dioxide BUN Plasma Lactic Acid Lucio Calcium AST Total Protein Albumin Stool Occult Blood Positive H Crossmatch 02/08/18 04:11 WBC RBC Hgb Hct RDW Lymphocytes # INR Sodium Chloride 111 H Carbon Dioxide 20 L BUN 23 H Plasma Lactic Acid Lucio Calcium 8.2 L AST Total Protein Albumin Stool Occult Blood Crossmatch - Diagnostic Findings Chest x-ray: image reviewed (No acute abnormality was noted on the chest x-ray.) Assessment and Plan Assessment: Impression: 1 severe anemia secondary to upper GI blood losses, differential diagnoses includes erosive gastritis or gastric ulcer. Patient is already on Protonix, she received a total of 3 units of packed RBCs so far, EGD showed 2 superficial antral ulcers measuring 5 mm and 7 mm in size with no active bleeding and there was antral erosive gastritis. 2 multiple comorbidities including coronary artery disease, previous history of breast cancer lumpectomy followed by radiation, is benign essential hypertension , osteoarthritis, and remote history of stomach ulcer. Recommendation: Continue present treatment plan, no more nonsteroidal anti- inflammatory drugs, continue Protonix, could be transferred out of the ICU to a regular medical floor, will continue to follow. Time with Patient: Greater than 30
--- NOTE | 2018-02-08 17:32 | P.PN ---
Subjective Progress Note Date: 02/08/18 Patient is an 82-year-old female who presented to [facility] emergency room with a chief complaint of worsening generalized weakness patient stated that her symptoms started about 2 weeks ago and has been getting worse, she tried to stand up today however she felt really weak and was eased to the floor by her daughter, she was brought into emergency room she was evaluated and her hemoglobin was significantly low at 5.2 stool Hemoccult was positive blood transfusion was ordered, and patient was admitted to intensive care unit gastroenterology consultation and critical care consultation was ordered. Patient was recently admitted to [facility] on 01/28/2018 at that time she had chest pain she was evaluated by cardiology her hemoglobin was normal sinus at 12.0 02/08/2018 patient is alert and oriented 3 in no apparent distress she was seen and examined in intensive care unit she is complaining of nausea but otherwise no complaints there is no fever or chills no headache or dizziness no chest pain no shortness of breath no cough no vomiting no abdominal pain and no urinary symptoms, patient had multiple black bowel movements. She received red blood cell transfusion and her hemoglobin is up from 5.7-8.0 she also was seen by gastroenterology and had an EGD that revealed erosive gastritis and 2 antral ulcers measuring 5 mm and 7 mm. Objective - Vital Signs Vital signs: Vital Signs Temp 98.1 F 02/08/18 15:00 Pulse 62 02/08/18 15:00 Resp 17 02/08/18 15:00 BP 96/60 02/08/18 15:00 Pulse Ox 98 02/08/18 15:00 Intake & Output 02/07/18 02/08/18 02/08/18 18:59 06:59 18:59 Intake Total 2500 1420 920 Output Total 1560 350 Balance 2500 -140 570 Weight 66.8 kg 67.3 kg Intake: IV 800 800 0.9 800 800 Amount of Fluid Infused ( 2500 ml) Oral 120 Blood Product 0 620 Rc As-1 Unit 0 310 [id number] Rc Pheresis 2 As3 Unit 0 [id number] Output: Urine 1560 350 Other: Voiding Method Bedside Commode Bedside Commode # Voids 0 1 # Bowel Movements 1 1 - Exam In general patient is alert and oriented 3 in no apparent distress HEENT head normocephalic and atraumatic Neck is supple no JVD no goiter no lymphadenopathy Chest exam is clear to auscultation no crackles no wheezing Cardiac exam reveals regular heart sounds no gallops no murmurs Abdomen is soft nontender no organomegaly with normal bowel sounds Extremity exam reveals no edema no cyanosis - Labs CBC & Chem 7: 02/08/18 04:11 02/08/18 04:11 Labs: Abnormal Lab Results - Last 24 Hours (Table) 02/07/18 02/07/18 02/08/18 Range/Units 14:00 21:59 04:11 WBC 3.1 L (3.8-10.6) k/uL RBC 2.51 L 2.66 L (3.80-5.40) m/uL Hgb 7.6 L D 8.0 L (11.4-16.0) gm/dL Hct 22.6 L 24.6 L (34.0-46.0) % RDW 18.1 H 19.5 H (11.5-15.5) % Lymphocytes # 0.9 L (1.0-4.8) k/uL Chloride (98-107) mmol/L Carbon Dioxide (22-30) mmol/L BUN (7-17) mg/dL Calcium (8.4-10.2) mg/dL Crossmatch See Detail 02/08/18 Range/Units 04:11 WBC (3.8-10.6) k/uL RBC (3.80-5.40) m/uL Hgb (11.4-16.0) gm/dL Hct (34.0-46.0) % RDW (11.5-15.5) % Lymphocytes # (1.0-4.8) k/uL Chloride 111 H (98-107) mmol/L Carbon Dioxide 20 L (22-30) mmol/L BUN 23 H (7-17) mg/dL Calcium 8.2 L (8.4-10.2) mg/dL Crossmatch Assessment and Plan Plan: #1 severe anemia hemoglobin is down to 5.2 possibly related to acute blood loss , stool Hemoccult positive. Patient stated that she had previous history of anemia and has been taking iron pills she stated that her stool was black recently but was unable to tell if it's related to the iron pills. Hemoglobin is up to 8.0 after transfusion, EGD results as noted above, continue Protonix continue to monitor in ICU at this time #2 generalized weakness likely related to 1 #3 underlying history of coronary artery disease with recent admission to [facility] and evaluation by cardiology. #4 underlying history of pacemaker placement #5 underlying history of hypertension. Continue to monitor in ICU, continue IV Protonix Patient was started on liquid diet post EGD Will follow closely
[2018-02-08] MEDS: ONDANSETRON 4 MG/2 ML VIAL IVP PRN (18:05)
[2018-02-08] MEDS: diphenhydrAMINE 25 MG CAP PO SCH (21:49)
[2018-02-08] MEDS: ACETAMINOPHEN TAB 325 MG TAB PO PRN (22:12)
[2018-02-09] MEDS: METOPROLOL TARTRATE 25 MG TAB PO SCH ×2 (07:50→21:36)
[2018-02-09] MEDS: CHOLECALCIFEROL 1,000 UNIT TAB PO SCH (07:50)
[2018-02-09] MEDS: DILTIAZEM CD 120 MG CAP.ER.24H PO SCH (07:51)
[2018-02-09] MEDS: ANASTROZOLE 1 MG TAB PO SCH (07:51)
[2018-02-09] MEDS: PANTOPRAZOLE 40 MG TABLET PO SCH ×2 (07:51→17:07)
[2018-02-09] MEDS: LOSARTAN 50 MG TAB PO SCH (07:51)
[2018-02-09] MEDS: ISOSORBIDE MONONITRATE ER 30 MG TAB.ER.24H PO SCH (07:51)
[2018-02-09 08:13] LABS: Anisocytosis Moderate; Basophils % (A) 1 %; Eosinophils # (A) 0.2 k/uL (0-0.7); Eosinophils % (A) 7 %; HCT 23.3 % (34.0-46.0); HGB 7.3 gm/dL (11.4-16.0); Hypochromasia Slight; Lymphocytes # (A) 0.9 k/uL (1.0-4.8); Lymphocytes % (A) 30 %; MCH 30.2 pg (25.0-35.0); MCHC 31.5 g/dL (31.0-37.0); MCV 95.9 fL (80.0-100.0); Macrocytosis Slight; Mean Platelet Volume 6.9; Monocytes # (A) 0.2 k/uL (0-1.0); Monocytes % (A) 8 %; Neutrophils # (A) 1.5 k/uL (1.3-7.7); Neutrophils % (A) 51 %; Platelet Count 254 k/uL (150-450); Poikilocytosis Slight; RBC 2.43 m/uL (3.80-5.40); RDW 21.3 % (11.5-15.5); WBC 2.9 k/uL (3.8-10.6)
[2018-02-09] MEDS: ACETAMINOPHEN TAB 325 MG TAB PO PRN ×2 (08:19→21:36)
[2018-02-09 08:20] LABS: Anion Gap 7 mmol/L; Blood Urea Nitrogen 17 mg/dL (7-17); Calcium 8.2 mg/dL (8.4-10.2); Carbon Dioxide 22 mmol/L (22-30); Chloride 113 mmol/L (98-107); Glucose 90 mg/dL (74-99); Phosphorus 3.1 mg/dL (2.5-4.5); Potassium 3.9 mmol/L (3.5-5.1); Sodium 142 mmol/L (137-145)
[2018-02-09] MEDS: SYMBICORT 160-4.5 MCG INHALER INHALATION SCH ×2 (09:03→19:16)
--- NOTE | 2018-02-09 10:58 | PN ---
PROGRESS NOTE DATE OF SERVICE: 02/09/2018 REQUESTING PHYSICIAN: Dr. Saleh. The patient is an 82-year-old pleasant white female admitted to hospital with severe symptomatic anemia and black tarry stools. Her hemoglobin was 5.7. Today it is 7.3. She has gotten 2 units of blood transfusion. She had an upper endoscopy done yesterday which showed gastric ulcer. Presently on Protonix 40 mg twice daily. She is feeling better. No more bleeding. She wants to go home. On a regular diet, tolerating well. PHYSICAL EXAMINATION: She appears comfortable. No apparent distress. VITAL SIGNS: Stable. Blood pressure 124/59, pulse 62, temperature 97.5. HEENT examination unremarkable. Conjunctivae pink. Sclerae anicteric. Oral cavity no lesions. Neck: No jugular venous distention or lymph node enlargement. Chest was clear to auscultation. HEART: Regular rate and rhythm. ABDOMEN: Soft. Bowel sounds are positive. No organomegaly. Extremities: No pedal edema. Skin no rashes. NEUROLOGIC: Alert and oriented x3. No focal deficits. LAB: From today WBC 2.9, hemoglobin 7.3, platelets are 254. BUN and creatinine are within normal limits. IMPRESSION: Severe symptomatic anemia and black tarry stools of 2 days duration. EGD yesterday showed evidence of 1 cm gastric ulcer in the antrum that was biopsied, possibly NSAID related. Presently on Protonix 40 mg twice daily. Doing well. RECOMMENDATIONS: 1. Advance diet. 2. Continue Protonix 40 mg twice daily. 3. Advised to avoid NSAIDs. 4. She can be discharged home with outpatient follow up in 4 weeks. MMODL / IJN: [id number] /
[2018-02-09] MEDS: ONDANSETRON 4 MG/2 ML VIAL IVP PRN (11:15)
--- NOTE | 2018-02-09 13:08 | P.PN ---
Subjective Progress Note Date: 02/09/18 Patient is an 82-year-old female who presented to [facility] emergency room with a chief complaint of worsening generalized weakness patient stated that her symptoms started about 2 weeks ago and has been getting worse, she tried to stand up today however she felt really weak and was eased to the floor by her daughter, she was brought into emergency room she was evaluated and her hemoglobin was significantly low at 5.2 stool Hemoccult was positive blood transfusion was ordered, and patient was admitted to intensive care unit gastroenterology consultation and critical care consultation was ordered. Patient was recently admitted to [facility] on 01/28/2018 at that time she had chest pain she was evaluated by cardiology her hemoglobin was normal sinus at 12.0 02/08/2018 patient is alert and oriented 3 in no apparent distress she was seen and examined in intensive care unit she is complaining of nausea but otherwise no complaints there is no fever or chills no headache or dizziness no chest pain no shortness of breath no cough no vomiting no abdominal pain and no urinary symptoms, patient had multiple black bowel movements. She received red blood cell transfusion and her hemoglobin is up from 5.7-8.0 she also was seen by gastroenterology and had an EGD that revealed erosive gastritis and 2 antral ulcers measuring 5 mm and 7 mm.. On 02/09/2018 patient is alert and oriented 3 in no apparent distress she was seen and examined on the medical floor she is feeling well without symptoms at this time however hemoglobin dropped from 8-7.3 since yesterday, there is no fever or chills no headache or dizziness no chest pain no shortness of breath no cough no nausea or vomiting no abdominal pain and no urinary symptoms. Objective - Vital Signs Vital signs: Vital Signs Temp 97.5 F L 02/09/18 05:12 Pulse 64 02/09/18 08:00 Resp 16 02/09/18 08:00 BP 154/70 02/09/18 07:49 Pulse Ox 96 02/09/18 05:12 Intake & Output 02/08/18 02/09/18 02/09/18 18:59 06:59 18:59 Intake Total 1040 1100 Output Total 350 200 Balance 690 1100 -200 Weight 67.3 kg Intake: IV 800 1100 0.9 800 1100 Oral 240 Output: Urine 350 200 Other: Voiding Method Bedside Commode Bedside Commode # Voids 1 2 2 # Bowel Movements 1 - Exam In general patient is alert and oriented 3 in no apparent distress HEENT head normocephalic and atraumatic Neck is supple no JVD no goiter no lymphadenopathy Chest exam is clear to auscultation no crackles no wheezing Cardiac exam reveals regular heart sounds no gallops no murmurs Abdomen is soft nontender no organomegaly with normal bowel sounds Extremity exam reveals no edema no cyanosis - Labs CBC & Chem 7: 02/09/18 07:26 02/09/18 07:26 Labs: Abnormal Lab Results - Last 24 Hours (Table) 02/09/18 02/09/18 Range/Units 07:26 07:26 WBC 2.9 L (3.8-10.6) k/uL RBC 2.43 L (3.80-5.40) m/uL Hgb 7.3 L (11.4-16.0) gm/dL Hct 23.3 L (34.0-46.0) % RDW 21.3 H (11.5-15.5) % Lymphocytes # 0.9 L (1.0-4.8) k/uL Chloride 113 H (98-107) mmol/L Calcium 8.2 L (8.4-10.2) mg/dL Assessment and Plan Plan: #1 severe anemia hemoglobin is down to 5.2 possibly related to acute blood loss , stool Hemoccult positive. Patient stated that she had previous history of anemia and has been taking iron pills she stated that her stool was black recently but was unable to tell if it's related to the iron pills. Hemoglobin is up to 8.0 after transfusion, however today hemoglobin is down to 7.3 EGD results as noted above, continue Protonix continue to monitor in ICU at this time #2 generalized weakness likely related to 1 #3 underlying history of coronary artery disease with recent admission to [facility] and evaluation by cardiology. #4 underlying history of pacemaker placement #5 underlying history of hypertension. Continue to monitor in ICU, continue IV Protonix, add Carafate 1 g by mouth 3 times daily Patient was started on liquid diet post EGD, will advance diet gradually Possible discharge to home tomorrow if hemoglobin stable
[2018-02-09] MEDS: SUCRALFATE 1 GM TAB PO SCH (17:08)
[2018-02-09] MEDS: diphenhydrAMINE 25 MG CAP PO SCH (21:42)
[2018-02-10] MEDS: CHOLECALCIFEROL 1,000 UNIT TAB PO SCH (07:01)
[2018-02-10] MEDS: PANTOPRAZOLE 40 MG TABLET PO SCH ×2 (07:01→17:11)
[2018-02-10] MEDS: SUCRALFATE 1 GM TAB PO SCH ×3 (07:01→17:11)
[2018-02-10] MEDS: ISOSORBIDE MONONITRATE ER 30 MG TAB.ER.24H PO SCH (07:01)
[2018-02-10] MEDS: DILTIAZEM CD 120 MG CAP.ER.24H PO SCH (07:01)
[2018-02-10] MEDS: ANASTROZOLE 1 MG TAB PO SCH (07:01)
[2018-02-10] MEDS: LOSARTAN 50 MG TAB PO SCH (07:02)
[2018-02-10] MEDS: METOPROLOL TARTRATE 25 MG TAB PO SCH ×2 (07:02→21:08)
[2018-02-10 07:19] LABS: Anisocytosis Slight; Basophils % (A) 0 %; Eosinophils # (A) 0.2 k/uL (0-0.7); Eosinophils % (A) 7 %; HCT 24.1 % (34.0-46.0); HGB 7.7 gm/dL (11.4-16.0); Hypochromasia Slight; Lymphocytes # (A) 0.9 k/uL (1.0-4.8); Lymphocytes % (A) 28 %; MCH 30.2 pg (25.0-35.0); MCHC 31.9 g/dL (31.0-37.0); MCV 94.9 fL (80.0-100.0); Macrocytosis Slight; Mean Platelet Volume 7.2; Monocytes # (A) 0.3 k/uL (0-1.0); Monocytes % (A) 8 %; Neutrophils # (A) 1.8 k/uL (1.3-7.7); Neutrophils % (A) 55 %; Platelet Count 271 k/uL (150-450); Poikilocytosis Slight; RBC 2.54 m/uL (3.80-5.40); RDW 19.9 % (11.5-15.5); WBC 3.4 k/uL (3.8-10.6)
[2018-02-10] MEDS: SYMBICORT 160-4.5 MCG INHALER INHALATION SCH ×2 (07:26→20:27)
[2018-02-10 07:40] LABS: ALT 29 U/L (9-52); AST 30 U/L (14-36); Albumin 3.1 g/dL (3.5-5.0); Alkaline Phosphatase 58 U/L (38-126); Anion Gap 8 mmol/L; Blood Urea Nitrogen 13 mg/dL (7-17); Calcium 8.8 mg/dL (8.4-10.2); Carbon Dioxide 23 mmol/L (22-30); Chloride 111 mmol/L (98-107); Glucose 92 mg/dL (74-99); Magnesium 1.9 mg/dL (1.6-2.3); Sodium 142 mmol/L (137-145); Total Bilirubin 0.2 mg/dL (0.2-1.3); Total Protein 5.3 g/dL (6.3-8.2)
[2018-02-10] MEDS ORDERED: SODIUM FERRIC GLUCONAT-SUCROSE 125 MG in SODIUM CHLORIDE 0.9% 100 ML IVPB ONE (11:47)
--- NOTE | 2018-02-10 13:13 | P.PN ---
Subjective Progress Note Date: 02/10/18 Patient is an 82-year-old female who presented to [facility] emergency room with a chief complaint of worsening generalized weakness patient stated that her symptoms started about 2 weeks ago and has been getting worse, she tried to stand up today however she felt really weak and was eased to the floor by her daughter, she was brought into emergency room she was evaluated and her hemoglobin was significantly low at 5.2 stool Hemoccult was positive blood transfusion was ordered, and patient was admitted to intensive care unit gastroenterology consultation and critical care consultation was ordered. Patient was recently admitted to [facility] on 01/28/2018 at that time she had chest pain she was evaluated by cardiology her hemoglobin was normal sinus at 12.0 02/08/2018 patient is alert and oriented 3 in no apparent distress she was seen and examined in intensive care unit she is complaining of nausea but otherwise no complaints there is no fever or chills no headache or dizziness no chest pain no shortness of breath no cough no vomiting no abdominal pain and no urinary symptoms, patient had multiple black bowel movements. She received red blood cell transfusion and her hemoglobin is up from 5.7-8.0 she also was seen by gastroenterology and had an EGD that revealed erosive gastritis and 2 antral ulcers measuring 5 mm and 7 mm.. On 02/09/2018 patient is alert and oriented 3 in no apparent distress she was seen and examined on the medical floor she is feeling well without symptoms at this time however hemoglobin dropped from 8-7.3 since yesterday, there is no fever or chills no headache or dizziness no chest pain no shortness of breath no cough no nausea or vomiting no abdominal pain and no urinary symptoms.'' 02/10/2018 patient is alert and oriented 3. Patient states that she does though feel weak. PT has been consulted. Hemoglobin up to 7.7. IV iron has been ordered. Patient states she lives alone and would like to work with physical therapy before she goes home. Denies chest pain shortness of breath or headache at this time. Objective - Vital Signs Vital signs: Vital Signs Temp 98.0 F 02/10/18 05:40 Pulse 57 L 02/10/18 07:00 Resp 16 02/10/18 07:00 BP 159/72 02/10/18 07:01 Pulse Ox 92 L 02/10/18 05:40 Intake & Output 02/09/18 02/10/18 02/10/18 18:59 06:59 18:59 Intake Total 540 Output Total 200 Balance 340 Weight 67.3 kg 67.3 kg Intake: Oral 540 Output: Urine 200 Other: Voiding Method Bedside Commode Toilet Toilet Bedside Commode Bedside Commode # Voids 2 1 - Exam Head normocephalic Neck supple Lungs clear to auscultation bilaterally no wheezing or crackles Heart regular rate and rhythm S1-S2, no rub or gallop Abdomen is soft nontender nondistended positive bowel sounds no hepatosplenomegaly Extremities no edema Neuro alert and orientated to 3 - Labs CBC & Chem 7: 02/10/18 06:42 02/10/18 06:42 Labs: Abnormal Lab Results - Last 24 Hours (Table) 02/10/18 02/10/18 Range/Units 06:42 06:42 WBC 3.4 L (3.8-10.6) k/uL RBC 2.54 L (3.80-5.40) m/uL Hgb 7.7 L (11.4-16.0) gm/dL Hct 24.1 L (34.0-46.0) % RDW 19.9 H (11.5-15.5) % Lymphocytes # 0.9 L (1.0-4.8) k/uL Chloride 111 H (98-107) mmol/L Total Protein 5.3 L (6.3-8.2) g/dL Albumin 3.1 L (3.5-5.0) g/dL Assessment and Plan Assessment: #1 severe anemia hemoglobin is down to 5.2 possibly related to acute blood loss , stool Hemoccult positive. Patient stated that she had previous history of anemia and has been taking iron pills she stated that her stool was black recently but was unable to tell if it's related to the iron pills. Hemoglobin is up to 8.0 after transfusion. Elevated improving at 7.7. EGD results as noted above, continue Protonix continue to monitor in ICU at this time. Oral iron has been ordered. Will recheck hemoglobin in a.m. #2 generalized weakness likely related to 1. Physical therapy has been consulted #3 underlying history of coronary artery disease with recent admission to [facility] and evaluation by cardiology. #4 underlying history of pacemaker placement #5 underlying history of hypertension. #6 questionable paroxysmal atrial fibrillation patient was not on long-term anticoagulation as noted per cardiolgoy from 01/29/2018 cardiac consultation. Patient currently on Lopressor. EKG on admission showing ventricular paced rhythm. Continue to monitor in ICU, continue IV Protonix, add Carafate 1 g by mouth 3 times daily Currently on low fiber diet. Possible discharge to home tomorrow if hemoglobin stable I performed an examination of the patient and discussed their management with the Nurse Practitioner. I have reviewed the Nurse Practitioner's notes and agree with the documented findings and plan of care
[2018-02-10] MEDS: ACETAMINOPHEN TAB 325 MG TAB PO PRN (17:11)
[2018-02-10] MEDS: diphenhydrAMINE 25 MG CAP PO SCH (21:08)
[2018-02-11] MEDS: ACETAMINOPHEN TAB 325 MG TAB PO PRN ×2 (01:50→08:25)
[2018-02-11 07:29] VITALS: BP 156/70; PULSE 60; RESP 18; TEMP 98
[2018-02-11 07:52] LABS: Anisocytosis Slight; Basophils % (A) 0 %; Eosinophils # (A) 0.3 k/uL (0-0.7); Eosinophils % (A) 7 %; HCT 23.8 % (34.0-46.0); HGB 7.6 gm/dL (11.4-16.0); Hypochromasia Slight; Lymphocytes # (A) 0.7 k/uL (1.0-4.8); Lymphocytes % (A) 17 %; MCH 30.2 pg (25.0-35.0); MCV 94.4 fL (80.0-100.0); Macrocytosis Slight; Mean Platelet Volume 7.3; Monocytes # (A) 0.3 k/uL (0-1.0); Monocytes % (A) 7 %; Neutrophils # (A) 2.9 k/uL (1.3-7.7); Neutrophils % (A) 68 %; Platelet Count 283 k/uL (150-450); Poikilocytosis Slight; RBC 2.52 m/uL (3.80-5.40); WBC 4.3 k/uL (3.8-10.6)
[2018-02-11 08:04] LABS: Anion Gap 10 mmol/L; Blood Urea Nitrogen 15 mg/dL (7-17); Calcium 8.6 mg/dL (8.4-10.2); Carbon Dioxide 22 mmol/L (22-30); Chloride 109 mmol/L (98-107); Glucose 96 mg/dL (74-99); Magnesium 1.9 mg/dL (1.6-2.3); Phosphorus 3.9 mg/dL (2.5-4.5); Potassium 3.9 mmol/L (3.5-5.1); Sodium 141 mmol/L (137-145)
[2018-02-11] MEDS: METOPROLOL TARTRATE 25 MG TAB PO SCH (08:23)
[2018-02-11] MEDS: SUCRALFATE 1 GM TAB PO SCH ×2 (08:23→11:41)
[2018-02-11] MEDS: CHOLECALCIFEROL 1,000 UNIT TAB PO SCH (08:23)
[2018-02-11] MEDS: DILTIAZEM CD 120 MG CAP.ER.24H PO SCH (08:23)
[2018-02-11] MEDS: PANTOPRAZOLE 40 MG TABLET PO SCH (08:23)
[2018-02-11] MEDS: LOSARTAN 50 MG TAB PO SCH (08:24)
[2018-02-11] MEDS: ISOSORBIDE MONONITRATE ER 30 MG TAB.ER.24H PO SCH (08:24)
[2018-02-11] MEDS: ANASTROZOLE 1 MG TAB PO SCH (08:26)
[2018-02-11] MEDS: SYMBICORT 160-4.5 MCG INHALER INHALATION SCH (08:36)
--- NOTE | 2018-02-11 11:40 | P.DS ---
Providers Date of admission: 02/07/18 15:39 Expected date of discharge: 02/11/18 Attending physician: Reyes Saleh Consults: 02/07/18 15:36 Consult Physician Urgent Consulting Provider: Eran Rodrigez Consult Reason/Comments: Critical care management Do you want consulting provider notified?: Yes Consult Physician Urgent Consulting Provider: Kvng Degroot Consult Reason/Comments: GI bleed Do you want consulting provider notified?: Yes Primary care physician: Dayanna Izquierdo Hospital Course: Discharge diagnosis 1. Acute upper GI bleed with severe acute blood loss anemia secondary to 2 antral ulcers and erosive gastritis noted on EGD. Hemoglobin at discharge 7.6. Patient required blood transfusions during this admission. She also be sent home with an iron supplement. Perception of been given for Protonix and Carafate in regards to her ulcers. Hepatitis was increased to 40 mg twice a day. She'll follow up with GI service in the office. Patient's aspirin has been placed on hold for now. We'll have her follow-up with her PCP and at that time they can discuss when to start the aspirin. Hemoglobin at discharge 7.6 2. Generalized weakness secondary to #1 #3 underlying history of coronary artery disease with recent admission to [facility] and evaluation by cardiology. #4 underlying history of pacemaker placement #5 underlying history of hypertension. #6 questionable paroxysmal atrial fibrillation patient was not on long-term anticoagulation as noted per cardiolgoy from 01/29/2018 cardiac consultation. Patient currently on Lopressor. EKG on admission showing ventricular paced rhythm. Hospital course Patient is an 82-year-old female who presented to [facility] emergency room with a chief complaint of worsening generalized weakness patient stated that her symptoms started about 2 weeks ago and has been getting worse, she tried to stand up today however she felt really weak and was eased to the floor by her daughter, she was brought into emergency room she was evaluated and her hemoglobin was significantly low at 5.2 stool Hemoccult was positive blood transfusion was ordered, and patient was admitted to intensive care unit gastroenterology consultation and critical care consultation was ordered. Patient was recently admitted to [facility] on 01/28/2018 at that time she had chest pain she was evaluated by cardiology her hemoglobin was normal sinus at 12.0 02/08/2018 patient is alert and oriented 3 in no apparent distress she was seen and examined in intensive care unit she is complaining of nausea but otherwise no complaints there is no fever or chills no headache or dizziness no chest pain no shortness of breath no cough no vomiting no abdominal pain and no urinary symptoms, patient had multiple black bowel movements. She received red blood cell transfusion and her hemoglobin is up from 5.7-8.0 she also was seen by gastroenterology and had an EGD that revealed erosive gastritis and 2 antral ulcers measuring 5 mm and 7 mm.. On 02/09/2018 patient is alert and oriented 3 in no apparent distress she was seen and examined on the medical floor she is feeling well without symptoms at this time however hemoglobin dropped from 8-7.3 since yesterday, there is no fever or chills no headache or dizziness no chest pain no shortness of breath no cough no nausea or vomiting no abdominal pain and no urinary symptoms.'' 02/10/2018 patient is alert and oriented 3. Patient states that she does though feel weak. PT has been consulted. Hemoglobin up to 7.7. IV iron has been ordered. Patient states she lives alone and would like to work with physical therapy before she goes home. Denies chest pain shortness of breath or headache at this time. Patient is medically stable for discharge today. She's been cleared by GI service. Hemoglobin is stable at 7.6. Would recommend that she follows up with her PCP in about 3 days for another repeat CBC. Patient reports still having stools that are partially black. Also stools have been more liquidy today. Patient reports that this is normal for her when she gets anxious. Patient is eager for discharge home. She is stable. New Medications include the Protonix, Carafate and iron. I performed an examination of the patient and discussed their management with the physician Repair Welder. I have reviewed the Physician Repair Welder's notes and agree with the documented findings and plan of care Patient Condition at Discharge: Stable Plan - Discharge Summary New Discharge Prescriptions: Grover Pantoprazole [Protonix] 40 mg PO AC-BID #60 tablet. Sucralfate [Carafate] 1 gm PO AC-TID #90 tab Continue Anastrozole [Arimidex] 1 mg PO DAILY Diltiazem HCl [Cardizem Cd] 120 mg PO DAILY Hydrochlorothiazide [Hydrodiuril] 12.5 mg PO DAILY Nitroglycerin Sl Tabs [Nitrostat] 0.4 mg SUBLINGUAL Q5M PRN PRN Reason: Chest Pain Cholecalciferol [Vitamin D3] 1,000 unit PO DAILY Irbesartan [Avapro] 150 mg PO DAILY Metoprolol Tartrate [Lopressor] 25 mg PO BID Fluticasone/Vilanterol [Breo Ellipta 200-25 Mcg INH] 1 puff INHALATION RT- DAILY Isosorbide Mononitrate ER [Imdur] 30 mg PO DAILY tab.er.24h diphenhydrAMINE HCL [Benadryl] 25 mg PO HS Nystatin 100,000Unit/gm Cream [Mycostatin Cream] 1 applic TOPICAL BID PRN PRN Reason: Rash Changed Ferrous Sulfate [Feosol] 325 mg PO BID 30 Days #60 tab Discontinued Aspirin EC [Ecotrin Low Dose] 81 mg PO DAILY #30 tablet. Pantoprazole [Protonix] 40 mg PO AC-BRKFST tablet. Discharge Medication List Anastrozole [Arimidex] 1 mg PO DAILY 03/07/15 [History] Diltiazem HCl [Cardizem Cd] 120 mg PO DAILY 01/05/16 [History] Hydrochlorothiazide [Hydrodiuril] 12.5 mg PO DAILY 01/05/16 [History] Cholecalciferol [Vitamin D3] 1,000 unit PO DAILY 01/20/16 [History] Nitroglycerin Sl Tabs [Nitrostat] 0.4 mg SUBLINGUAL Q5M PRN 01/20/16 [History] Fluticasone/Vilanterol [Breo Ellipta 200-25 Mcg INH] 1 puff INHALATION RT-DAILY 09/04/17 [History] Irbesartan [Avapro] 150 mg PO DAILY 09/04/17 [History] Metoprolol Tartrate [Lopressor] 25 mg PO BID 09/04/17 [History] Isosorbide Mononitrate ER [Imdur] 30 mg PO DAILY tab.er.24h 09/08/17 [Rx] Nystatin 100,000Unit/gm Cream [Mycostatin Cream] 1 applic TOPICAL BID PRN [History] diphenhydrAMINE HCL [Benadryl] 25 mg PO HS 01/28/18 [History] Ferrous Sulfate [Feosol] 325 mg PO BID 30 Days #60 tab 02/11/18 [Rx] Pantoprazole [Protonix] 40 mg PO AC-BID #60 tablet. 02/11/18 [Rx] Sucralfate [Carafate] 1 gm PO AC-TID #90 tab 02/11/18 [Rx] Follow up Appointment(s)/Referral(s): Dayanna Izquierdo MD [Primary Care Provider] - 3 Days Melvi Blair MD [STAFF PHYSICIAN] - 4 Weeks [facility], [NON-STAFF] - 1 Week Activity/Diet/Wound Care/Special Instructions: Diet: cardiac Activity: as tolerated Hold Aspirin until seen by PCP Discharge Disposition: HOME WITH HOME HEALTH SERVICES
--- NOTE | 2018-02-17 08:55 | CDI ---
Last Revision, July 2017 Documentation Clarification Form Date: 02/17/2018 8:51:52 AM From: Deisy Lorenzana Phone: If you have a question regarding this query, please contact Margaret Vogt at [phone] between 8am and 5pm. Admit Date: 02/07/2018 3:39:00 PM Patient Name: Kelli Aldana Visit Number: [id number] Discharge Date: 02/11/18 ATTENTION: The Clinical Documentation Specialists (CDI) and [facility] Coding Staff appreciate your assistance in clarifying documentation. Please respond to the clarification below the line at the bottom and electronically sign. The CDI & [facility] Coding staff will review the response and follow-up if needed. Please note: Queries are made part of the Legal Health Record. If you have any questions, please contact the author of this message via ITS. Dr. Reyes Saleh Erosive gastritis is documented in the medical record. Please specify the acuity of this condition with terms such as: Acute Chronic Acute and chronic Other(Please specify) Clinically unable to further specify Unknown MTDD
--- NOTE | 2018-02-17 08:58 | CDI ---
Last Revision, July 2017 Documentation Clarification Form Date: 02/17/2018 8:51:52 AM From: Deisy Lorenzana Phone: If you have a question regarding this query, please contact Margaret Vogt at [phone] between 8am and 5pm. Admit Date: 02/07/2018 3:39:00 PM Patient Name: Kelli Aldana Visit Number: [id number] Discharge Date: 02/11/18 ATTENTION: The Clinical Documentation Specialists (CDI) and [facility] Coding Staff appreciate your assistance in clarifying documentation. Please respond to the clarification below the line at the bottom and electronically sign. The CDI & [facility] Coding staff will review the response and follow-up if needed. Please note: Queries are made part of the Legal Health Record. If you have any questions, please contact the author of this message via ITS. Dr. Reyes Saleh Antral ulcers is documented in the medical record. Please specify the acuity of this condition with terms such as: Acute Chronic Acute and chronic Other(Please specify) Clinically unable to further specify Unknown MTDD
== END 2018-02-11 12:45 | disposition home health service (06) | DRG 378 ==
LOC: EC 11:05 → 6ICU 15:39 → 5MS5E 02-08 18:40
PROVIDERS: ADMIT Internal Medicine; ATTEND Internal Medicine
PROC: 0DB78ZX Excision of Stomach, Pylorus, Via Natural or Artificial Opening Endoscopic, Diagnostic (ICD-10-PCS; principal; 2018-02-07 10:00)
PROC: 30230N1 Transfusion of Nonautologous Red Blood Cells into Peripheral Vein, Open Approach (ICD-10-PCS; 2018-02-07 10:00)
DX: K25.4 Chronic or unspecified gastric ulcer with hemorrhage (principal); D62 Acute posthemorrhagic anemia; K29.71 Gastritis, unspecified, with bleeding; G40.909 Epilepsy, unspecified, not intractable, without status epilepticus; I10 Essential (primary) hypertension; I25.10 Atherosclerotic heart disease of native coronary artery without angina pectoris; I25.2 Old myocardial infarction; I48.0 Paroxysmal atrial fibrillation; K21.9 Gastro-esophageal reflux disease without esophagitis; M15.9 Polyosteoarthritis, unspecified; M47.9 Spondylosis, unspecified; M54.31 Sciatica, right side; T39.395A Adverse effect of other nonsteroidal anti-inflammatory drugs [NSAID], initial encounter; Y92.009 Unspecified place in unspecified non-institutional (private) residence as the place of occurrence of the external cause; Z79.811 Long term (current) use of aromatase inhibitors; Z79.82 Long term (current) use of aspirin; Z79.899 Other long term (current) drug therapy; Z87.01 Personal history of pneumonia (recurrent); Z95.0 Presence of cardiac pacemaker; Z88.1 Allergy status to other antibiotic agents; Z88.0 Allergy status to penicillin; Z88.2 Allergy status to sulfonamides; Z91.048 Other nonmedicinal substance allergy status; Z96.612 Presence of left artificial shoulder joint; Z95.5 Presence of coronary angioplasty implant and graft; Z90.710 Acquired absence of both cervix and uterus; Z87.891 Personal history of nicotine dependence; Z87.11 Personal history of peptic ulcer disease; Z85.3 Personal history of malignant neoplasm of breast; Z92.3 Personal history of irradiation; Z87.440 Personal history of urinary (tract) infections; Z96.643 Presence of artificial hip joint, bilateral; Z98.42 Cataract extraction status, left eye; Z98.41 Cataract extraction status, right eye; Z96.1 Presence of intraocular lens; Z82.49 Family history of ischemic heart disease and other diseases of the circulatory system; Z80.3 Family history of malignant neoplasm of breast; Z80.0 Family history of malignant neoplasm of digestive organs
CPT/HCPCS: 36415; 36569; 43239; 71046; 76937; 80048; 80053; 82272; 82550; 82553; 83605; 83735; 84100; 84484; 85025; 85027; 85610; 85730; 86850; 86900; 86901; 86920; 88305; 93005; 94640; 96360; 96361; 99285

== ENCOUNTER 2018-03-21 12:48 | Emergency (ER) | payer MEDICARE, OTHER ==
[2018-03-21 13:18] VITALS: PULSE 60; TEMP 98.3
[2018-03-21] MEDS ORDERED: MECLIZINE 12.5 MG TAB PO STA (13:33)
[2018-03-21] MEDS ORDERED: ONDANSETRON 4 MG/2 ML VIAL IVP STA (13:33)
[2018-03-21] MEDS ORDERED: SODIUM CHLORIDE 0.9% 1,000 ML IV ONE (13:33)
--- NOTE | 2018-03-21 13:39 | ED ---
Dizziness HPI - General Chief Complaint: Dizziness Stated Complaint: dizziness, vomiting Time Seen by Provider: 03/21/18 13:11 Source: patient Mode of arrival: wheelchair Limitations: physical limitation - History of Present Illness Initial Comments: Patient is an 82-year-old female with a history of anemia, and DE who presents with a chief complaint dizziness. Patient states that this is been going on for several days. She states that she feels as if the room is spinning around her. She states that her symptoms are exacerbated by movement, somewhat alleviated by rest but not completely fatigable. Patient also complaining of epigastric abdominal pain today. Patient states that the last time she felt this way she was anemic and required a blood transfusion. Patient denies any chest pain or shortness of breath. She denies melena or hematochezia. No hematemesis. Patient admits to vomiting one time yesterday. - Related Data Home Medications Medication Instructions Recorded Confirmed Anastrozole [Arimidex] 1 mg PO DAILY 03/07/15 02/07/18 Diltiazem HCl [Cardizem Cd] 120 mg PO DAILY 01/05/16 02/07/18 Hydrochlorothiazide [Hydrodiuril] 12.5 mg PO DAILY 01/05/16 02/07/18 Cholecalciferol [Vitamin D3] 1,000 unit PO DAILY 01/20/16 02/07/18 Nitroglycerin Sl Tabs [Nitrostat] 0.4 mg SUBLINGUAL Q5M PRN 01/20/16 02/07/18 Fluticasone/Vilanterol [Breo 1 puff INHALATION RT-DAILY 09/04/17 02/07/18 Ellipta 200-25 Mcg INH] Irbesartan [Avapro] 150 mg PO DAILY 09/04/17 02/07/18 Metoprolol Tartrate [Lopressor] 25 mg PO BID 09/04/17 02/07/18 Nystatin 100,000Unit/gm Cream 1 applic TOPICAL BID PRN 01/28/18 02/07/18 [Mycostatin Cream] diphenhydrAMINE HCL [Benadryl] 25 mg PO HS 01/28/18 02/07/18 Previous Rx's Medication Instructions Recorded Isosorbide Mononitrate ER [Imdur] 30 mg PO DAILY tab.er.24h 09/08/17 Ferrous Sulfate [Feosol] 325 mg PO BID 30 Days #60 tab 02/11/18 Pantoprazole [Protonix] 40 mg PO AC-BID #60 tablet. 02/11/18 Sucralfate [Carafate] 1 gm PO AC-TID #90 tab 02/11/18 Allergies Allergy/AdvReac Type Severity Reaction Status Date / Time adhesive Allergy Unknown Verified 03/21/18 13:18 cephalexin monohydrate Allergy Unknown Verified 03/21/18 13:18 [From Keflex] ciprofloxacin [From Cipro] Allergy Unknown Verified 03/21/18 13:18 ciprofloxacin HCl Allergy Unknown Verified 03/21/18 13:18 [From Cipro] Penicillins Allergy Rash/Hives Verified 03/21/18 13:18 Sulfa (Sulfonamide Allergy Rash/Hives Verified 03/21/18 13:18 Antibiotics) Review of Systems ROS Statement: Those systems with pertinent positive or pertinent negative responses have been documented in the HPI. ROS Other: All systems not noted in ROS Statement are negative. Gastrointestinal: Reports: abdominal pain (Epigastric pain), nausea, vomiting Genitourinary: Reports: frequency Past Medical History Past Medical History: Atrial Fibrillation, Coronary Artery Disease (CAD), Cancer , Chest Pain / Angina, GERD/Reflux, Hypertension, Myocardial Infarction (DE), Osteoarthritis (OA), Pneumonia, Seizure Disorder Additional Past Medical History / Comment(s): R breast cancer with lumpectomy/ radiation, CHB with pacer, cerebral aneurysm, arthritis multiple joints and in neck/back, sciatica right sided, balance issues at times, fall with concussion, multiple bronchitis, iron deficiency anemia, UTIs, stomach ulcer in past. Last Myocardial Infarction Date:: 2014 History of Any Multi-Drug Resistant Organisms: None Reported Past Surgical History: Appendectomy, Back Surgery, Breast Surgery, Heart Catheterization With Stent, Hysterectomy, Joint Replacement, Pacemaker Additional Past Surgical History / Comment(s): right breast lumpectomy, cervical surgery, lumbar surgery, left shoulder replaced, right thumb surgery, CARDIAC STENTS TO RCA AND CIRC, EVY HIP REPLACMENTS (DONE IN [place]), EVY CATARACTS, EGD/colonoscopy, capsule endoscopy, hemorrhoidectomy. Past Anesthesia/Blood Transfusion Reactions: No Reported Reaction Date of Last Stent Placement:: 03/10/15 Type of Cardiac Device: Biventricular Pacemaker Device Placement Date:: originally placed in 2005 and d/t L total shoulder surgery, moved 06/18/11 Past Psychological History: No Psychological Hx Reported Smoking Status: Former smoker Past Alcohol Use History: Daily Past Drug Use History: None Reported - Past Family History Father Additional Family Medical History / Comment(s): kidney problem, heart attack Mother Family Medical History: Cancer Additional Family Medical History / Comment(s): colon ca, breast ca, MOM LIVED TO BE 98 YEARS OLD Sister(s) Family Medical History: Cancer Additional Family Medical History / Comment(s): colon ca, breast ca General Exam Limitations: physical limitation General appearance: alert, in no apparent distress Head exam: Present: atraumatic, normocephalic Eye exam: Present: normal appearance, PERRL, EOMI. Absent: scleral icterus, conjunctival injection, nystagmus ENT exam: Present: normal exam, mucous membranes moist Neck exam: Present: normal inspection, full ROM. Absent: tenderness, meningismus Respiratory exam: Present: normal lung sounds bilaterally. Absent: respiratory distress, wheezes Cardiovascular Exam: Present: regular rate, normal rhythm GI/Abdominal exam: Present: soft. Absent: distended, tenderness Extremities exam: Present: normal inspection Back exam: Present: normal inspection. Absent: CVA tenderness (R), CVA tenderness (L) Neurological exam: Present: alert, oriented X3, CN II-XII intact. Absent: motor sensory deficit Psychiatric exam: Present: normal affect, normal mood Skin exam: Present: warm, dry, intact Course Vital Signs 03/21/18 03/21/18 13:14 16:22 Temperature 98.3 F Pulse Rate 60 60 Respiratory 20 18 Rate Blood Pressure 128/60 127/60 O2 Sat by Pulse 97 99 Oximetry Medical Decision Making - Medical Decision Making Patient presents with a chief complaint of dizziness. On initial evaluation, vital signs are stable, patient is in no acute distress. Patient's symptoms are exacerbated by movement however they're not completely fatigable. Considered vertigo however must also consider central etiologies of dizziness. Also considering anemia. Patient to be evaluated with basic labs including a liver profile, lipase, cardiac enzymes, EKG, chest x-ray, and CT scans of the head with and without contrast. Patient given IV fluid, Antivert, and Zofran. EKG performed at 1441 shows AV dual paced rhythym with prolonged AV condution. When compared to previous study performed on 01/29/1918, V4 through V6 display different morphology. 5:16 PM Lab evaluation of this patient is grossly unremarkable. Hemoglobin is stable at 13.7. Troponin is negative, there is no evidence of congestive heart failure. CT scans of the head with and without contrast are grossly unremarkable however there is note of less than 50% occlusion in the right carotid artery, and evidence of other atherosclerotic disease, none of which are causing high-grade stenosis. On reevaluation, the patient states that her symptoms are completely resolved after a dose of Antivert. Given the EKG changes and the finding on CT, the patient was offered admission for further workup. At this time, patient declines admission and states she would rather follow-up with primary care. At this time, patient demonstrates the ability to ambulate without assistance. Patient was given explicit signs and symptoms that should prompt return visit to the emergency department. Patient will be given ENT follow-up, and prescribed Antivert. - Lab Data Result diagrams: 03/21/18 14:25 03/21/18 14:25 Lab Results 03/21/18 03/21/18 03/21/18 Range/Units 14:25 14:25 14:25 WBC 4.6 (3.8-10.6) k/uL RBC 4.49 (3.80-5.40) m/uL Hgb 13.2 D (11.4-16.0) gm/dL Hct 41.7 (34.0-46.0) % MCV 92.9 (80.0-100.0) fL MCH 29.3 (25.0-35.0) pg MCHC 31.6 (31.0-37.0) g/dL RDW 16.6 H (11.5-15.5) % Plt Count 289 (150-450) k/uL Neutrophils % 61 % Lymphocytes % 23 % Monocytes % 11 % Eosinophils % 3 % Basophils % 0 % Neutrophils # 2.8 (1.3-7.7) k/uL Lymphocytes # 1.0 (1.0-4.8) k/uL Monocytes # 0.5 (0-1.0) k/uL Eosinophils # 0.1 (0-0.7) k/uL Basophils # 0.0 (0-0.2) k/uL Hypochromasia Slight Anisocytosis Slight Sodium 137 (137-145) mmol/L Potassium 3.8 (3.5-5.1) mmol/L Chloride 101 (98-107) mmol/L Carbon Dioxide 26 (22-30) mmol/L Anion Gap 10 mmol/L BUN 37 H (7-17) mg/dL Creatinine 0.86 (0.52-1.04) mg/dL Est GFR (CKD-EPI)AfAm 73 (>60 ml/min/1.73 sqM) Est GFR (CKD-EPI)NonAf 64 (>60 ml/min/1.73 sqM) Glucose 96 (74-99) mg/dL Calcium 9.6 (8.4-10.2) mg/dL Magnesium 2.1 (1.6-2.3) mg/dL Total Bilirubin 0.3 (0.2-1.3) mg/dL AST 24 (14-36) U/L ALT 24 (9-52) U/L Alkaline Phosphatase 69 (38-126) U/L Troponin I (0.000-0.034) ng/mL NT-Pro-B Natriuret Pep 395 pg/mL Total Protein 6.9 (6.3-8.2) g/dL Albumin 4.2 (3.5-5.0) g/dL Lipase 146 (23-300) U/L Urine Color Urine Appearance (Clear) Urine pH (5.0-8.0) Ur Specific [place] (1.001-1.035) Urine Protein (Negative) Urine Glucose (UA) (Negative) Urine Ketones (Negative) Urine Blood (Negative) Urine Nitrite (Negative) Urine Bilirubin (Negative) Urine Urobilinogen (<2.0) mg/dL Ur Leukocyte Esterase (Negative) Blood Type Blood Type Recheck Antibody Screen Spec Expiration Date 03/21/18 03/21/18 03/21/18 Range/Units 14:25 14:25 16:53 WBC (3.8-10.6) k/uL RBC (3.80-5.40) m/uL Hgb (11.4-16.0) gm/dL Hct (34.0-46.0) % MCV (80.0-100.0) fL MCH (25.0-35.0) pg MCHC (31.0-37.0) g/dL RDW (11.5-15.5) % Plt Count (150-450) k/uL Neutrophils % % Lymphocytes % % Monocytes % % Eosinophils % % Basophils % % Neutrophils # (1.3-7.7) k/uL Lymphocytes # (1.0-4.8) k/uL Monocytes # (0-1.0) k/uL Eosinophils # (0-0.7) k/uL Basophils # (0-0.2) k/uL Hypochromasia Anisocytosis Sodium (137-145) mmol/L Potassium (3.5-5.1) mmol/L Chloride (98-107) mmol/L Carbon Dioxide (22-30) mmol/L Anion Gap mmol/L BUN (7-17) mg/dL Creatinine (0.52-1.04) mg/dL Est GFR (CKD-EPI)AfAm (>60 ml/min/1.73 sqM) Est GFR (CKD-EPI)NonAf (>60 ml/min/1.73 sqM) Glucose (74-99) mg/dL Calcium (8.4-10.2) mg/dL Magnesium (1.6-2.3) mg/dL Total Bilirubin (0.2-1.3) mg/dL AST (14-36) U/L ALT (9-52) U/L Alkaline Phosphatase (38-126) U/L Troponin I <0.012 (0.000-0.034) ng/mL NT-Pro-B Natriuret Pep pg/mL Total Protein (6.3-8.2) g/dL Albumin (3.5-5.0) g/dL Lipase (23-300) U/L Urine Color Colorless Urine Appearance Clear (Clear) Urine pH 6.0 (5.0-8.0) Ur Specific [place] 1.027 (1.001-1.035) Urine Protein Negative (Negative) Urine Glucose (UA) Negative (Negative) Urine Ketones Negative (Negative) Urine Blood Negative (Negative) Urine Nitrite Negative (Negative) Urine Bilirubin Negative (Negative) Urine Urobilinogen <2.0 (<2.0) mg/dL Ur Leukocyte Esterase Negative (Negative) Blood Type O Positive Blood Type Recheck No Antibody Screen NEGATIVE Spec Expiration Date 03/24/2018 - 2324 Disposition Clinical Impression: Vertigo, Abnormal EKG Disposition: HOME SELF-CARE Condition: Good Instructions: Dizziness (ED), Vertigo (ED) Is patient prescribed a controlled substance at d/c from ED?: No Referrals: Dayanna Izquierdo MD [Primary Care Provider] - 1-2 days Harpal Eaton MD [STAFF PHYSICIAN] - 1-2 days
[2018-03-21 14:37] LABS: Anisocytosis Slight; Basophils % (A) 0 %; Eosinophils # (A) 0.1 k/uL (0-0.7); Eosinophils % (A) 3 %; HCT 41.7 % (34.0-46.0); Hypochromasia Slight; Lymphocytes % (A) 23 %; MCH 29.3 pg (25.0-35.0); MCHC 31.6 g/dL (31.0-37.0); MCV 92.9 fL (80.0-100.0); Mean Platelet Volume 7.2; Monocytes # (A) 0.5 k/uL (0-1.0); Monocytes % (A) 11 %; Neutrophils # (A) 2.8 k/uL (1.3-7.7); Neutrophils % (A) 61 %; Platelet Count 289 k/uL (150-450); RBC 4.49 m/uL (3.80-5.40); RDW 16.6 % (11.5-15.5); WBC 4.6 k/uL (3.8-10.6)
[2018-03-21 14:41] LABS: HGB 13.2 gm/dL (11.4-16.0)
[2018-03-21 14:56] LABS: Albumin 4.2 g/dL (3.5-5.0); Calcium 9.6 mg/dL (8.4-10.2); Magnesium 2.1 mg/dL (1.6-2.3); Potassium 3.8 mmol/L (3.5-5.1); Total Bilirubin 0.3 mg/dL (0.2-1.3); Total Protein 6.9 g/dL (6.3-8.2)
--- NOTE | 2018-03-21 15:08 | XR ---
EXAMINATION TYPE: XR chest 2V DATE OF EXAM: 03/21/2018 COMPARISON: 02/07/2018 HISTORY: Dizziness and chest pain TECHNIQUE: Frontal and lateral views of the chest are obtained. FINDINGS: There is no focal air space opacity, pleural effusion, or pneumothorax seen. The cardiac silhouette size is within normal limits. The osseous structures are intact. Left humeral arthroplas ty is seen. Multilead left-sided cardiac device is noted. Mild multilevel degenerative changes of the thoracic spine are present. Pulmonary hyperinflation and flattening of the diaphragms on the lateral image suggests underlying COPD. IMPRESSION: Chronic changes with no acute cardiopulmonary process.
--- NOTE | 2018-03-21 15:55 | CT ---
EXAMINATION TYPE: CT brain wo con DATE OF EXAM: 03/21/2018 COMPARISON: 01/05/2016 HISTORY: Dizziness and nausea for [address] DLP: 1098.8 mGycm Automated exposure control for dose reduction was used. TECHNIQUE: CT scan of the head is performed without contrast. FINDINGS: There is no acute intracranial hemorrhage or midline shift identified. No suspicious flui d collection is seen. There is diffuse ventricular and sulcal prominence consistent with diffuse age- related cerebral atrophy. There is low-attenuation in the periventricular white matter consistent wi th chronic small vessel ischemic change. The globes are intact. Mild mucosal thickening is seen with in the ethmoid sinuses and left maxillary sinus. Remaining visualized paranasal sinuses and mastoid a ir cells are well aerated. Atherosclerosis is seen of the intracranial vasculature. IMPRESSION: No acute intracranial hemorrhage or midline shift. There is diffuse age-related cerebra l atrophy and chronic small vessel ischemic change noted.
[2018-03-21 16:24] VITALS: BP 127/60; RESP 18
--- NOTE | 2018-03-21 16:44 | CT ---
EXAMINATION TYPE: CT angio head neck DATE OF EXAM: 03/21/2018 COMPARISON: Correlation noncontrast CT same day HISTORY: 82-year-old female pain, Dizziness and nausea for 2 days TECHNIQUE: Contiguous axial scanning of the head and neck performed with IV Contrast, patient injecte d with 65 mL of Isovue 370. Coronal/sagittal MIP reconstructions performed. CT DLP: 360.2 mGycm Automated exposure control for dose reduction was used. FINDINGS: Head: Moderate atherosclerotic calcifications within the carotid siphons. No significant narrowing seen of the internal carotid arteries. The vertebral and basilar arteries show no significant stenosis or occ lusion. There is hypoplastic P1 segment right posterior cerebral artery with persistent origin right PC A. Anterior circulation is grossly patent. No aneurysmal change seen. NECK: Aorta normal caliber with mild atherosclerotic arch calcifications and conventional arch vessel branc angy anatomy. The right common carotid artery is patent. Moderate apical scarring calcifications at the carotid bulb with mild, less than 50% proximal right I CA narrowing. Additional eccentric atherosclerotic calcifications in the upper right ICA causing less than 20% narrowing. The left common carotid artery is patent. More extensive moderate prostatic calcifications at the lef t carotid bulb contribute to a moderate 50% narrowing. The remainder of the left internal carotid art august is patent. The bilateral vertebral artery origins are patent. Vertebral arteries are codominant and patent throu ghout their course IMPRESSION: 1. NECK: ATHEROSCLEROTIC CALCIFICATIONS AT THE LEFT GREATER THAN RIGHT BIFURCATIONS. THIS CAUSES MODE RATE, 50% STENOSIS AT THE LEFT CAROTID BULB AND MILD, LESS THAN 50% STENOSIS AT THE RIGHT CAROTID BUL B. 2. BRAIN: NO SIGNIFICANT STENOSIS, ARTERIAL OCCLUSION, OR ANEURYSMAL CHANGE SEEN. THERE IS MODERATE A THEROSCLEROTIC NARROWING ALONG THE CAROTID SIPHONS.
[2018-03-21 17:02] LABS: Appearance,Urine Clear (Clear); Bilirubin,Urine Negative (Negative); Blood,Urine Negative (Negative); Color,Urine Colorless; Glucose,Urine (UA) Negative (Negative); Ketones,Urine Negative (Negative); Leukocyte Esterase,Urine Negative (Negative); Nitrite,Urine Negative (Negative); Protein,Urine Negative (Negative); Specific Gravity,Urine 1.027 (1.001-1.035); Urobilinogen,Urine <2.0 mg/dL (<2.0)
== END 2018-03-21 17:47 | disposition home or self-care (01) ==
LOC: EC 12:48
DX: I65.21 Occlusion and stenosis of right carotid artery (principal); R94.31 Abnormal electrocardiogram [ECG] [EKG]; R10.13 Epigastric pain; R11.10 Vomiting, unspecified; I25.119 Atherosclerotic heart disease of native coronary artery with unspecified angina pectoris; I48.91 Unspecified atrial fibrillation; K21.9 Gastro-esophageal reflux disease without esophagitis; I25.2 Old myocardial infarction; I10 Essential (primary) hypertension; G40.909 Epilepsy, unspecified, not intractable, without status epilepticus; M19.90 Unspecified osteoarthritis, unspecified site; D50.9 Iron deficiency anemia, unspecified; Z85.3 Personal history of malignant neoplasm of breast; Z87.891 Personal history of nicotine dependence; Z79.51 Long term (current) use of inhaled steroids; Z79.899 Other long term (current) drug therapy; Z88.0 Allergy status to penicillin; Z88.1 Allergy status to other antibiotic agents; Z88.2 Allergy status to sulfonamides; Z91.048 Other nonmedicinal substance allergy status; Z95.5 Presence of coronary angioplasty implant and graft; Z95.0 Presence of cardiac pacemaker; Z96.643 Presence of artificial hip joint, bilateral; Z96.612 Presence of left artificial shoulder joint
CPT/HCPCS: 99284 ×2; 96374 ×2; 96361 ×2; 36415; 93005; 86900; 86901; 83880; 80053; 83690; 83735; 84484; 85025; 86850; 81003; 71046; 70496; 70450; 70498; J2405; Q9967

== ENCOUNTER 2018-03-25 12:39 | Observation (INO) | payer MEDICARE, OTHER ==
[2018-03-25] MEDS ORDERED: ASPIRIN 81 MG PO STA (12:54)
[2018-03-25] MEDS ORDERED: NITROGLYCERIN OINT 1 INCH/GM PACKET TOPICAL STA (12:54)
[2018-03-25] MEDS ORDERED: SODIUM CHLORIDE 0.9% 1,000 ML IV STA (12:54)
[2018-03-25] MEDS ORDERED: FAMOTIDINE 20 MG/2 ML VIAL IV STA (12:55)
--- NOTE | 2018-03-25 13:09 | ED ---
General Adult HPI - General Source: patient, EMS, RN notes reviewed, old records reviewed Mode of arrival: EMS Limitations: no limitations <Fabio Alexandre - Last Filed: 03/25/18 14:38> <Danial Melgar - Last Filed: 03/25/18 15:07> - General Chief complaint: Chest Pain Stated complaint: Chest Pain Time Seen by Provider: 03/25/18 12:54 - History of Present Illness Initial comments: Patient is a 82-year-old female presented to the emergency room today by EMS, the chief complaint of chest pain that began approximately 2 hours ago. Patient does admit that she was in the middle of therapy at home when her physical therapist noticed that she was having some chest discomfort. Patient states that EMS did give her 2 nitro which has relieved some of her symptoms. She does admit that she also has a history of peptic ulcer disease and has had some discomfort to the upper abdomen as well. She states his chest pain was different this afternoon. Patient denies any other complaints or symptoms at this time. Patient denies any recent fever, chills, shortness of breath, back pain, nausea or vomiting, numbness or tingling, headaches or visual changes, or any other complaints. (Fabio Alexandre) - Related Data Home Medications Medication Instructions Recorded Confirmed Anastrozole [Arimidex] 1 mg PO DAILY 03/07/15 03/25/18 Diltiazem HCl [Cardizem Cd] 120 mg PO DAILY 01/05/16 03/25/18 Hydrochlorothiazide [Hydrodiuril] 12.5 mg PO DAILY 01/05/16 03/25/18 Cholecalciferol [Vitamin D3] 1,000 unit PO DAILY 01/20/16 03/25/18 Nitroglycerin Sl Tabs [Nitrostat] 0.4 mg SUBLINGUAL Q5M PRN 01/20/16 03/25/18 Fluticasone/Vilanterol [Breo 1 puff INHALATION RT-DAILY 09/04/17 03/25/18 Ellipta 200-25 Mcg INH] Irbesartan [Avapro] 150 mg PO DAILY 09/04/17 03/25/18 Metoprolol Tartrate [Lopressor] 25 mg PO BID 09/04/17 03/25/18 Nystatin 100,000Unit/gm Cream 1 applic TOPICAL BID PRN 01/28/18 03/25/18 [Mycostatin Cream] diphenhydrAMINE HCL [Benadryl] 25 mg PO HS PRN 01/28/18 03/25/18 Ondansetron [Zofran] 4 mg PO Q6H PRN 03/25/18 03/25/18 Previous Rx's Medication Instructions Recorded Isosorbide Mononitrate ER [Imdur] 30 mg PO DAILY tab.er.24h 09/08/17 Ferrous Sulfate [Feosol] 325 mg PO BID 30 Days #60 tab 02/11/18 Pantoprazole [Protonix] 40 mg PO AC-BID #60 tablet. 02/11/18 Sucralfate [Carafate] 1 gm PO AC-TID #90 tab 02/11/18 Allergies Allergy/AdvReac Type Severity Reaction Status Date / Time adhesive Allergy Unknown Verified 03/25/18 13:23 cephalexin monohydrate Allergy Unknown Verified 03/25/18 13:23 [From Keflex] ciprofloxacin [From Cipro] Allergy Unknown Verified 03/25/18 13:23 ciprofloxacin HCl Allergy Unknown Verified 03/25/18 13:23 [From Cipro] Penicillins Allergy Rash/Hives Verified 03/25/18 13:23 Sulfa (Sulfonamide Allergy Rash/Hives Verified 03/25/18 13:23 Antibiotics) Review of Systems ROS Other: All systems not noted in ROS Statement are negative. <Fabio Alexandre - Last Filed: 03/25/18 14:38> ROS Other: All systems not noted in ROS Statement are negative. <Danial Melgar - Last Filed: 03/25/18 15:07> ROS Statement: Those systems with pertinent positive or pertinent negative responses have been documented in the HPI. Past Medical History Past Medical History: Atrial Fibrillation, Coronary Artery Disease (CAD), Cancer , Chest Pain / Angina, GERD/Reflux, Hypertension, Myocardial Infarction ([place]), Osteoarthritis (OA), Pneumonia, Seizure Disorder Additional Past Medical History / Comment(s): R breast cancer with lumpectomy/ radiation, CHB with pacer, cerebral aneurysm, arthritis multiple joints and in neck/back, sciatica right sided, balance issues at times, fall with concussion, multiple bronchitis, iron deficiency anemia, UTIs, stomach ulcer in past. Last Myocardial Infarction Date:: 2014 History of Any Multi-Drug Resistant Organisms: None Reported Past Surgical History: Appendectomy, Back Surgery, Breast Surgery, Heart Catheterization With Stent, Hysterectomy, Joint Replacement, Pacemaker Additional Past Surgical History / Comment(s): right breast lumpectomy, cervical surgery, lumbar surgery, left shoulder replaced, right thumb surgery, CARDIAC STENTS TO RCA AND CIRC, EVY HIP REPLACMENTS (DONE IN [place]), EVY CATARACTS, EGD/colonoscopy, capsule endoscopy, hemorrhoidectomy. Past Anesthesia/Blood Transfusion Reactions: No Reported Reaction Date of Last Stent Placement:: 03/10/15 Type of Cardiac Device: Biventricular Pacemaker Device Placement Date:: originally placed in 2005 and d/t L total shoulder surgery, moved 06/18/11 Past Psychological History: No Psychological Hx Reported Smoking Status: Former smoker Past Alcohol Use History: Daily Past Drug Use History: None Reported - Past Family History Father Additional Family Medical History / Comment(s): kidney problem, heart attack Mother Family Medical History: Cancer Additional Family Medical History / Comment(s): colon ca, breast ca, MOM LIVED TO BE 98 YEARS OLD Sister(s) Family Medical History: Cancer Additional Family Medical History / Comment(s): colon ca, breast ca <Fabio Alexandre - Last Filed: 03/25/18 14:38> General Exam Limitations: no limitations <Fabio Alexandre - Last Filed: 03/25/18 14:38> <Danial Melgar - Last Filed: 03/25/18 15:07> - General Exam Comments Initial Comments: General: The patient is awake and alert, in no distress, and does not appear acutely ill. Eye: Pupils are equal, round and reactive to light, extra-ocular movements are intact. No nystagmus. There is normal conjunctiva bilaterally. No signs of icterus. Ears, nose, mouth and throat: There are moist mucous membranes and no oral lesions. Neck: The neck is supple, there is no tenderness or JVD. Cardiovascular: There is a regular rate and rhythm. No murmur, rub or gallop is appreciated. Respiratory: Lungs are clear to auscultation, respirations are non-labored, breath sounds are equal. No wheezes, stridor, rales, or rhonchi. Gastrointestinal: Abdomen soft on palpation. Mild tenderness epigastric. No rebound, guarding or CVA tenderness. Musculoskeletal: Normal ROM, no tenderness. Strength 5/5. Sensation intact. Pulses equal bilaterally 2+. Neurological: A&O x 3. CN II-XII intact, There are no obvious motor or sensory deficits. Coordination appears grossly intact. Speech is normal. Skin: Skin is warm and dry and no rashes or lesions are noted. Psychiatric: Cooperative, appropriate mood & affect, normal judgment. 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 [place] interval 218. QRS 156. QT/QTc is 404/477. No acute ST changes. <Fabio Alexandre - Last Filed: 03/25/18 14:38> Medical Decision Making - Lab Data Result diagrams: 03/25/18 13:38 03/25/18 13:38 <Fabio Alexandre - Last Filed: 03/25/18 14:38> - Lab Data Result diagrams: 03/25/18 13:38 03/25/18 13:38 <Danial Melgar - Last Filed: 03/25/18 15:07> - Medical Decision Making Patient's labs have been reviewed and negative cardiac enzymes. EKG reviewed shows no acute changes. Patient admits to chest pain that began at 11 AM there was relief with nitro. Patient resting comfortable at this time. He admitted for serial cardiac enzymes and consult cardiology. (Fabio Alexandre) I did review and agree with PA findings. This includes all diagnostic interpretations and treatment plan. Of note patient does have systolic cardiac murmur. Patient was reevaluated by myself, Dr. Melgar. Patient resting comfortably in bed. Patient symptoms have essentially resolved with nitroglycerin. Pedal pulses 2/4 bilateral. Patient updated on results and plan. Case was discussed in detail with Dr. Saleh, who will admit for Dr. tolentino. (Danial Melgar) - Lab Data Lab Results 03/25/18 03/25/18 03/25/18 Range/Units 13:38 13:38 13:38 WBC 4.8 (3.8-10.6) k/uL RBC 4.57 (3.80-5.40) m/uL Hgb 13.6 (11.4-16.0) gm/dL Hct 42.1 (34.0-46.0) % MCV 92.3 (80.0-100.0) fL MCH 29.8 (25.0-35.0) pg MCHC 32.3 (31.0-37.0) g/dL RDW 16.3 H (11.5-15.5) % Plt Count 257 (150-450) k/uL Neutrophils % 60 % Lymphocytes % 20 % Monocytes % 14 % Eosinophils % 3 % Basophils % 0 % Neutrophils # 2.9 (1.3-7.7) k/uL Lymphocytes # 1.0 (1.0-4.8) k/uL Monocytes # 0.7 (0-1.0) k/uL Eosinophils # 0.2 (0-0.7) k/uL Basophils # 0.0 (0-0.2) k/uL Anisocytosis Slight PT (9.0-12.0) sec INR (<1.2) APTT (22.0-30.0) sec Sodium 138 (137-145) mmol/L Potassium 4.5 (3.5-5.1) mmol/L Chloride 102 (98-107) mmol/L Carbon Dioxide 29 (22-30) mmol/L Anion Gap 7 mmol/L BUN 23 H (7-17) mg/dL Creatinine 0.69 (0.52-1.04) mg/dL Est GFR (CKD-EPI)AfAm >90 (>60 ml/min/1.73 sqM) Est GFR (CKD-EPI)NonAf 81 (>60 ml/min/1.73 sqM) Glucose 98 (74-99) mg/dL Calcium 9.4 (8.4-10.2) mg/dL Magnesium 2.1 (1.6-2.3) mg/dL Total Bilirubin 0.3 (0.2-1.3) mg/dL AST 25 (14-36) U/L ALT 25 (9-52) U/L Alkaline Phosphatase 78 (38-126) U/L Total Creatine Kinase 30 (30-135) U/L CK-MB (CK-2) 1.1 (0.0-2.4) ng/mL CK-MB (CK-2) Rel Index 3.7 Troponin I <0.012 (0.000-0.034) ng/mL Total Protein 6.7 (6.3-8.2) g/dL Albumin 4.0 (3.5-5.0) g/dL 03/25/18 Range/Units 13:38 WBC (3.8-10.6) k/uL RBC (3.80-5.40) m/uL Hgb (11.4-16.0) gm/dL Hct (34.0-46.0) % MCV (80.0-100.0) fL MCH (25.0-35.0) pg MCHC (31.0-37.0) g/dL RDW (11.5-15.5) % Plt Count (150-450) k/uL Neutrophils % % Lymphocytes % % Monocytes % % Eosinophils % % Basophils % % Neutrophils # (1.3-7.7) k/uL Lymphocytes # (1.0-4.8) k/uL Monocytes # (0-1.0) k/uL Eosinophils # (0-0.7) k/uL Basophils # (0-0.2) k/uL Anisocytosis PT 10.1 (9.0-12.0) sec INR 1.0 (<1.2) APTT 24.8 (22.0-30.0) sec Sodium (137-145) mmol/L Potassium (3.5-5.1) mmol/L Chloride (98-107) mmol/L Carbon Dioxide (22-30) mmol/L Anion Gap mmol/L BUN (7-17) mg/dL Creatinine (0.52-1.04) mg/dL Est GFR (CKD-EPI)AfAm (>60 ml/min/1.73 sqM) Est GFR (CKD-EPI)NonAf (>60 ml/min/1.73 sqM) Glucose (74-99) mg/dL Calcium (8.4-10.2) mg/dL Magnesium (1.6-2.3) mg/dL Total Bilirubin (0.2-1.3) mg/dL AST (14-36) U/L ALT (9-52) U/L Alkaline Phosphatase (38-126) U/L Total Creatine Kinase (30-135) U/L CK-MB (CK-2) (0.0-2.4) ng/mL CK-MB (CK-2) Rel Index Troponin I (0.000-0.034) ng/mL Total Protein (6.3-8.2) g/dL Albumin (3.5-5.0) g/dL Disposition Is patient prescribed a controlled substance at d/c from ED?: No Time of Disposition: 14:39 <Fabio Alexandre - Last Filed: 03/25/18 14:38> <Danial Melgar - Last Filed: 03/25/18 15:07> Clinical Impression: Chest pain Disposition: ADMITTED IP TO THIS HOSP Condition: Stable Referrals: Dayanna Izquierdo MD [Primary Care Provider] - 1-2 days
[2018-03-25 13:58] LABS: Anisocytosis Slight; Basophils % (A) 0 %; Eosinophils # (A) 0.2 k/uL (0-0.7); Eosinophils % (A) 3 %; HCT 42.1 % (34.0-46.0); HGB 13.6 gm/dL (11.4-16.0); Lymphocytes % (A) 20 %; MCH 29.8 pg (25.0-35.0); MCHC 32.3 g/dL (31.0-37.0); MCV 92.3 fL (80.0-100.0); Mean Platelet Volume 6.9; Monocytes # (A) 0.7 k/uL (0-1.0); Monocytes % (A) 14 %; Neutrophils # (A) 2.9 k/uL (1.3-7.7); Neutrophils % (A) 60 %; Platelet Count 257 k/uL (150-450); RBC 4.57 m/uL (3.80-5.40); RDW 16.3 % (11.5-15.5); WBC 4.8 k/uL (3.8-10.6)
[2018-03-25 14:12] LABS: ALT 25 U/L (9-52); AST 25 U/L (14-36); Alkaline Phosphatase 78 U/L (38-126); Anion Gap 7 mmol/L; Blood Urea Nitrogen 23 mg/dL (7-17); Calcium 9.4 mg/dL (8.4-10.2); Carbon Dioxide 29 mmol/L (22-30); Chloride 102 mmol/L (98-107); Glucose 98 mg/dL (74-99); Magnesium 2.1 mg/dL (1.6-2.3); Potassium 4.5 mmol/L (3.5-5.1); Sodium 138 mmol/L (137-145); Total Bilirubin 0.3 mg/dL (0.2-1.3); Total Protein 6.7 g/dL (6.3-8.2)
[2018-03-25 14:20] LABS: Partial Thromboplastin Time 24.8 sec (22.0-30.0); Prothrombin Time 10.1 sec (9.0-12.0)
--- NOTE | 2018-03-25 14:20 | XR ---
EXAMINATION TYPE: XR chest 2V DATE OF EXAM: 03/25/2018 COMPARISON: NONE HISTORY: Shortness of breath TECHNIQUE: Frontal and lateral views of the chest are obtained. FINDINGS: Scattered senescent parenchymal changes noted. Hyperinflation compatible with COPD. No evidence for infiltrate. No evidence for atelectasis. Heart size is stable. Mediastinal structures are stable and grossly unremarkable. No evidence for hilar prominence. Degenerative changes dorsal spine. IMPRESSION: 1. No evidence for acute pulmonary disease.
[2018-03-25 14:21] LABS: Creatine Kinase 30 U/L (30-135)
[2018-03-25 14:34] LABS: Creatine Kinase MB 1.1 ng/mL (0.0-2.4); Troponin I <0.012 ng/mL (0.000-0.034)
[2018-03-25] MEDS ORDERED: HEPARIN SODIUM,PORCINE 5,000 UNIT/ML 1 ML VIAL IV ONE (14:39)
[2018-03-25] MEDS ORDERED: NYSTATIN 100,000UNIT/GM CREAM 30 GM TUBE TOPICAL PRN (14:42)
[2018-03-25] MEDS ORDERED: ONDANSETRON 4 MG TAB PO PRN (14:42)
[2018-03-25] MEDS ORDERED: HEPARIN SOD,PORK IN 0.45% NACL 25,000 UNIT in 0.45% NACL 1 500ML.BAG IV SCH (14:45)
[2018-03-25] MEDS: PANTOPRAZOLE 40 MG TABLET PO SCH (19:25)
[2018-03-25] MEDS: SUCRALFATE 1 GM TAB PO SCH (19:25)
[2018-03-25 20:17] LABS: Anisocytosis Slight; Basophils % (A) 0 %; Eosinophils # (A) 0.2 k/uL (0-0.7); Eosinophils % (A) 4 %; HCT 39.2 % (34.0-46.0); HGB 12.5 gm/dL (11.4-16.0); Lymphocytes # (A) 1.3 k/uL (1.0-4.8); Lymphocytes % (A) 27 %; MCH 29.3 pg (25.0-35.0); MCHC 31.9 g/dL (31.0-37.0); MCV 91.9 fL (80.0-100.0); Mean Platelet Volume 6.9; Monocytes # (A) 0.6 k/uL (0-1.0); Monocytes % (A) 13 %; Neutrophils # (A) 2.6 k/uL (1.3-7.7); Neutrophils % (A) 54 %; Platelet Count 254 k/uL (150-450); RBC 4.26 m/uL (3.80-5.40); RDW 16.4 % (11.5-15.5); WBC 4.8 k/uL (3.8-10.6)
[2018-03-25 20:55] LABS: Creatine Kinase MB 1.2 ng/mL (0.0-2.4); Troponin I 0.014 ng/mL (0.000-0.034)
[2018-03-25] MEDS: METOPROLOL TARTRATE 25 MG TAB PO SCH (23:09)
[2018-03-26 01:43] LABS: Cholesterol 213 mg/dL (<200); HDL Cholesterol 84 mg/dL (40-60); LDL Cholesterol,Calculated 104 mg/dL (0-99); Triglycerides 123 mg/dL (<150)
[2018-03-26 02:06] LABS: Creatine Kinase MB 1.2 ng/mL (0.0-2.4); Troponin I 0.013 ng/mL (0.000-0.034)
[2018-03-26] MEDS: PANTOPRAZOLE 40 MG TABLET PO SCH ×2 (05:34→17:34)
[2018-03-26] MEDS: SUCRALFATE 1 GM TAB PO SCH ×3 (06:32→17:33)
[2018-03-26] MEDS: ISOSORBIDE MONONITRATE ER 30 MG TAB.ER.24H PO SCH (08:48)
[2018-03-26] MEDS: METOPROLOL TARTRATE 25 MG TAB PO SCH ×2 (08:49→21:21)
[2018-03-26] MEDS ORDERED: ASPIRIN 325 MG TAB PO SCH (09:00)
[2018-03-26 09:06] LABS: Anisocytosis Slight; Basophils % (A) 0 %; Eosinophils # (A) 0.2 k/uL (0-0.7); Eosinophils % (A) 4 %; HCT 41.3 % (34.0-46.0); HGB 12.7 gm/dL (11.4-16.0); Hypochromasia Moderate; Lymphocytes # (A) 0.9 k/uL (1.0-4.8); Lymphocytes % (A) 20 %; MCH 29.4 pg (25.0-35.0); MCHC 30.9 g/dL (31.0-37.0); MCV 95.3 fL (80.0-100.0); Mean Platelet Volume 6.9; Monocytes # (A) 0.5 k/uL (0-1.0); Monocytes % (A) 10 %; Neutrophils # (A) 2.8 k/uL (1.3-7.7); Neutrophils % (A) 62 %; Platelet Count 244 k/uL (150-450); RBC 4.33 m/uL (3.80-5.40); RDW 16.2 % (11.5-15.5); WBC 4.5 k/uL (3.8-10.6)
--- NOTE | 2018-03-26 09:30 | P.CRDCN ---
History of Present Illness Consult date: 03/26/18 Requesting physician: Reyes Saleh Consult reason: chest pain Chief complaint: Epigastric discomfort History of present illness: This is an 82-year-old female with known history of coronary artery disease and prior angioplasty. He has previously undergone angioplasty and stenting of the right coronary artery and circumflex. History also of hypertension, hyperlipidemia, peripheral vascular disease, GERD, right breast cancer status post radiation and lumpectomy, complete heart block with prior pacemaker implantation. Patient presents to the hospital on this occasion with symptoms of epigastric discomfort. She was in the hospital in January, with symptoms of atypical chest pain at that time, underwent a Lexiscan stress test that was negative for any reversible ischemia. Upon review of prior records, patient has had multiple presentations to the emergency room and also admission to the hospital since January, with symptoms of epigastric discomfort. She also has been complaining of dizziness. During the admission in January of this year, patient's hemoglobin did drop down to 5.2, patient did undergo an EGD on February 07 which revealed 2 superficial antral ulcers measuring 5 mm and 7 mm in size with no active bleeding. Antral erosive gastritis. Patient did come to the emergency room on March 21 with symptoms of dizziness, brain CT and CT angiography were performed which did not reveal any significant findings. Hemoglobin 13.2. Patient presents to the hospital on this occasion with symptoms of epigastric tenderness and discomfort with mild associated dizziness. She describes her discomfort as a burning discomfort, it much worse after she eats, and the area is quite tender on palpation. Chest x-ray did not reveal evidence for acute pulmonary disease. EKG shows a paced rhythm. Blood pressure 116/70, heart rate in the 60s, 96% on room air. White blood cell count is normal, hemoglobin 12.7, platelet count 244. Sodium 138, potassium 4.5 , BUN 23, creatinine 0.6. Magnesium 2.1. Troponins 0.012, 0.014, 0.015, 0.013. At the time of my examination this morning, patient continues to complain of this epigastric discomfort, she states it never goes away completely. Past Medical History Past Medical History: Atrial Fibrillation, Coronary Artery Disease (CAD), Cancer , Chest Pain / Angina, GERD/Reflux, Hypertension, Myocardial Infarction ([place]), Osteoarthritis ([place]), Pneumonia, Seizure Disorder Additional Past Medical History / Comment(s): R breast cancer with lumpectomy/ radiation, CHB with pacer, cerebral aneurysm, arthritis multiple joints and in neck/back, sciatica right sided, balance issues at times, fall with concussion, multiple bronchitis, iron deficiency anemia, UTIs, stomach ulcer in past.constipation,lt eye cataract Last Myocardial Infarction Date:: 2014 History of Any Multi-Drug Resistant Organisms: None Reported Past Surgical History: Appendectomy, Back Surgery, Breast Surgery, Heart Catheterization With Stent, Hysterectomy, Joint Replacement, Pacemaker Additional Past Surgical History / Comment(s): right breast lumpectomy, cervical surgery, lumbar surgery, left shoulder replaced, right thumb surgery, CARDIAC STENTS TO RCA AND CIRC, EVY HIP REPLACMENTS (DONE IN [place]), rt CATARACT, EGD/colonoscopy, capsule endoscopy, hemorrhoidectomy. Past Anesthesia/Blood Transfusion Reactions: No Reported Reaction Date of Last Stent Placement:: 03/10/15 Type of Cardiac Device: Biventricular Pacemaker Device Placement Date:: originally placed in 2005 and d/t L total shoulder surgery, moved 06/18/11 Smoking Status: Former smoker - Past Family History Father Additional Family Medical History / Comment(s): kidney problem, heart attack Mother Family Medical History: Cancer Additional Family Medical History / Comment(s): colon ca, breast ca, MOM LIVED TO BE 98 YEARS OLD Sister(s) Family Medical History: Cancer Additional Family Medical History / Comment(s): colon ca, breast ca Medications and Allergies Home Medications Medication Instructions Recorded Confirmed Type Anastrozole [Arimidex] 1 mg PO DAILY 03/07/15 03/25/18 History Diltiazem HCl [Cardizem Cd] 120 mg PO DAILY 01/05/16 03/25/18 History Hydrochlorothiazide [Hydrodiuril] 12.5 mg PO DAILY 01/05/16 03/25/18 History Cholecalciferol [Vitamin D3] 1,000 unit PO DAILY 01/20/16 03/25/18 History Nitroglycerin Sl Tabs [Nitrostat] 0.4 mg SUBLINGUAL Q5M PRN 01/20/16 03/25/18 History Fluticasone/Vilanterol [Breo 1 puff INHALATION RT-DAILY 09/04/17 03/25/18 History Ellipta 200-25 Mcg INH] Irbesartan [Avapro] 150 mg PO DAILY 09/04/17 03/25/18 History Metoprolol Tartrate [Lopressor] 25 mg PO BID 09/04/17 03/25/18 History Isosorbide Mononitrate ER [Imdur] 30 mg PO DAILY tab.er.24h 09/08/17 03/25/18 Rx Nystatin 100,000Unit/gm Cream 1 applic TOPICAL BID PRN 01/28/18 03/25/18 History [Mycostatin Cream] diphenhydrAMINE HCL [Benadryl] 25 mg PO HS PRN 01/28/18 03/25/18 History Ferrous Sulfate [Feosol] 325 mg PO BID 30 Days #60 tab 02/11/18 03/25/18 Rx Pantoprazole [Protonix] 40 mg PO AC-BID #60 tablet. 02/11/18 03/25/18 Rx Sucralfate [Carafate] 1 gm PO AC-TID #90 tab 02/11/18 03/25/18 Rx Ondansetron [Zofran] 4 mg PO Q6H PRN 03/25/18 03/25/18 History Allergies Allergy/AdvReac Type Severity Reaction Status Date / Time adhesive Allergy Unknown Verified 03/25/18 13:23 cephalexin monohydrate Allergy Unknown Verified 03/25/18 13:23 [From Keflex] ciprofloxacin [From Cipro] Allergy Unknown Verified 03/25/18 13:23 ciprofloxacin HCl Allergy Unknown Verified 03/25/18 13:23 [From Cipro] Penicillins Allergy Rash/Hives Verified 03/25/18 13:23 Sulfa (Sulfonamide Allergy Rash/Hives Verified 03/25/18 13:23 Antibiotics) Physical Exam Vitals: Vital Signs Temp Pulse Pulse Pulse Resp BP BP 03/26/18 04:00 61 18 117/70 03/25/18 23:49 97.1 F L 66 18 130/67 03/25/18 22:21 74 16 127/65 03/25/18 19:03 75 16 100/59 03/25/18 15:19 97.9 F 70 18 116/55 03/25/18 14:21 75 16 130/63 03/25/18 12:51 84 03/25/18 12:40 98.2 F 88 18 128/67 Pulse Ox 03/26/18 04:00 96 03/25/18 23:49 95 03/25/18 22:21 96 03/25/18 19:03 94 L 03/25/18 15:19 97 03/25/18 14:21 97 03/25/18 12:51 03/25/18 12:40 95 Intake and Output 03/25/18 03/26/18 03/26/18 22:59 06:59 14:59 Intake Total 100 480 Balance 100 480 Intake: IV 100 Sodium Chloride 0.9% 1, 100 000 ml @ 20 mls/hr IV . Q24H STA Rx#:[id number] Oral 480 Other: Voiding Method Toilet # Voids 2 Weight 66.2 kg PHYSICAL EXAMINATION: GENERAL: 82-year-old female in no acute distress at the time of my examination HEENT: Head is atraumatic, normocephalic. Pupils equal, round. Sclera anicteric. Conjunctiva are clear. Mucous membranes of the mouth are moist. Neck is supple. There is no elevated jugular venous pressure.] bruit is heard. HEART EXAMINATION: Heart S1, S2 systolic murmur heard . CHEST EXAMINATION:[ Lungs are clear to auscultation and precussion. Positive chest wall tenderness is noted on palpation ABDOMEN: Soft, nontender. Bowel sounds are heard. No organomegaly noted. EXTREMITIES: 2+ peripheral pulses with no evidence of peripheral edema and no calf tenderness noted. NEUROLOGIC patient is awake, alert and oriented X2 Results 03/26/18 08:36 03/25/18 13:38 Cardiac Enzymes 03/25/18 03/25/18 03/25/18 Range/Units 13:38 13:38 19:25 AST 25 (14-36) U/L CK-MB (CK-2) 1.1 1.2 (0.0-2.4) ng/mL Troponin I <0.012 0.014 (0.000-0.034) ng/mL 03/25/18 03/26/18 Range/Units 20:09 01:14 AST (14-36) U/L CK-MB (CK-2) 1.2 (0.0-2.4) ng/mL Troponin I 0.015 0.013 (0.000-0.034) ng/mL Coagulation 03/25/18 Range/Units 13:38 PT 10.1 (9.0-12.0) sec APTT 24.8 (22.0-30.0) sec Lipids 03/25/18 Range/Units 13:38 Triglycerides 123 (<150) mg/dL Cholesterol 213 H (<200) mg/dL HDL Cholesterol 84 H (40-60) mg/dL CBC 03/25/18 03/25/18 Range/Units 13:38 20:09 WBC 4.8 4.8 (3.8-10.6) k/uL RBC 4.57 4.26 (3.80-5.40) m/uL Hgb 13.6 12.5 (11.4-16.0) gm/dL Hct 42.1 39.2 (34.0-46.0) % Plt Count 257 254 (150-450) k/uL Comprehensive Metabolic Panel 03/25/18 Range/Units 13:38 Sodium 138 (137-145) mmol/L Potassium 4.5 (3.5-5.1) mmol/L Chloride 102 (98-107) mmol/L Carbon Dioxide 29 (22-30) mmol/L BUN 23 H (7-17) mg/dL Creatinine 0.69 (0.52-1.04) mg/dL Glucose 98 (74-99) mg/dL Calcium 9.4 (8.4-10.2) mg/dL AST 25 (14-36) U/L ALT 25 (9-52) U/L Alkaline Phosphatase 78 (38-126) U/L Total Protein 6.7 (6.3-8.2) g/dL Albumin 4.0 (3.5-5.0) g/dL Current Medications Generic Name Dose Route Start Last Admin Trade Name Freq PRN Reason Stop Dose Admin Aspirin 325 mg 03/26/18 09:00 03/26/18 08:48 Aspirin PO Not Given DAILY CHANCE Sodium Chloride 1,000 mls @ 20 mls/hr 03/25/18 12:54 03/25/18 13:28 Saline 0.9% IV 03/26/18 12:53 20 mls/hr .Q24H STA Administration Heparin Sodium/Sodium Chloride 500 mls @ 16.32 mls/hr 03/25/18 14:45 15:16 25,000 unit/ Sodium Chloride IV 12 units/kg/hr .Q24H CHANCE 16.32 mls/hr Administration Protocol 12 UNITS/KG/HR Isosorbide Mononitrate 30 mg 03/26/18 09:00 03/26/18 08:48 Imdur PO 30 mg DAILY CHANCE Administration Metoprolol Tartrate 25 mg 03/25/18 21:00 03/26/18 08:49 Lopressor PO 25 mg BID CHANCE Administration Nystatin 1 applic 03/25/18 14:42 Mycostatin Cream TOPICAL BID PRN Rash Ondansetron HCl 4 mg 03/25/18 14:42 Zofran PO Q6H PRN Nausea Pantoprazole Sodium 40 mg 03/25/18 17:30 03/26/18 05:34 Protonix PO 40 mg AC-BID CHANCE Administration Sucralfate 1 gm 03/25/18 17:30 03/26/18 06:32 Carafate PO 1 gm AC-TID CHANCE Administration Intake and Output 03/25/18 03/26/18 03/26/18 22:59 06:59 14:59 Intake Total 100 480 Balance 100 480 Intake: IV 100 Sodium Chloride 0.9% 1, 100 000 ml @ 20 mls/hr IV . Q24H STA Rx#:[id number] Oral 480 Other: Voiding Method Toilet # Voids 2 Weight 66.2 kg 03/25/18 20:09 03/25/18 13:38 EKG Interpretations (text) EKG shows a paced rhythm with underlying sinus rhythm and PACs Assessment and Plan Plan: Assessment and plan #1 symptoms of epigastric discomfort, atypical for acute coronary syndrome. EKG shows a paced rhythm with underlying sinus rhythm with PACs. Troponins 0.012, 0.014, 0.015, 0.013. Lexiscan performed in January negative for reversible ischemia. #2 recent admission to the hospital with anemia, underwent an EGD at that time, in January which revealed 2 ulcers. #3 symptoms of recurrent dizziness, patient was recently in the emergency room earlier this week, CTA and CT of the brain did not reveal any significant findings. We will check orthostatic heart rate and blood pressure every shift. We'll also interrogate pacemaker. #4 known history of coronary artery disease with prior stent placements #5 prior pacemaker implantation for complete heart block #6 hypertension #7 hyperlipidemia #8 peripheral vascular disease #9 GERD #10 history of right breast cancer status post radiation and lumpectomy #10 prior history of smoking Plan We will obtain an echocardiogram with Doppler study. Patient had a recent stress test performed, Josephine scan, in January of this year negative for reversible ischemia. We will check orthostatic heart rate and blood pressure every shift. We will also interrogate the pacemaker. Discontinue Nitropaste, decrease aspirin to 81 mg daily. Resume Lopressor and initiate statin. Further recommendations to follow. DNP note has been reviewed, I agree with a documented findings and plan of care. Patient was seen and examined.
[2018-03-26 09:44] LABS: Albumin 3.9 g/dL (3.5-5.0); Calcium 9.3 mg/dL (8.4-10.2); Potassium 4.3 mmol/L (3.5-5.1); Total Bilirubin 0.4 mg/dL (0.2-1.3); Total Protein 6.6 g/dL (6.3-8.2)
[2018-03-26] MEDS ORDERED: diphenhydrAMINE 25 MG CAP PO PRN (10:55)
--- NOTE | 2018-03-26 11:00 | P.HPIM ---
History of Present Illness H&P Date: 03/26/18 Chief Complaint: chest pain This is an 82 year old female patinet of Dr. Izquierdo. Patient presented to the Emergency room with complaints of Chest pain for approximately 2 hours. Patient has a known past medical history of coronary artery disease, cancer, chest pain , GERD, hypertension, myocardial infarction, osteoporosis, pneumonia, seizure disorder, atrial fibrillation patient said she has not been on anticoagulation for many years, Biventricular pacemaker and peptic ulcer disease. Patient recently admitted in January which she underwent EGD which revealed 2 superficial atrial ulcers with no active bleeding. Antral erosive gastritis. Chest x-ray completed showing no evidence for possible acute pulmonary disease. EKG completed showing atrial sensed ventricular paced rhythm with prolonged AV conduction. Ends 0.014, 0.015 and 0.013. Cardiology services have been consulted. Plan for interrogation of pacer today. Patient denies chest pain or shortness breath at this time.. Denies nausea vomiting or diarrhea.. Denies any urinary symptoms Review of Systems Please refer to HPI otherwise unremarkable Past Medical History Past Medical History: Atrial Fibrillation, Coronary Artery Disease (CAD), Cancer , Chest Pain / Angina, GERD/Reflux, Hypertension, Myocardial Infarction (VT), Osteoarthritis (OA), Pneumonia, Seizure Disorder Additional Past Medical History / Comment(s): R breast cancer with lumpectomy/ radiation, CHB with pacer, cerebral aneurysm, arthritis multiple joints and in neck/back, sciatica right sided, balance issues at times, fall with concussion, multiple bronchitis, iron deficiency anemia, UTIs, stomach ulcer in past.constipation,lt eye cataract Last Myocardial Infarction Date:: 2014 History of Any Multi-Drug Resistant Organisms: None Reported Past Surgical History: Appendectomy, Back Surgery, Breast Surgery, Heart Catheterization With Stent, Hysterectomy, Joint Replacement, Pacemaker Additional Past Surgical History / Comment(s): right breast lumpectomy, cervical surgery, lumbar surgery, left shoulder replaced, right thumb surgery, CARDIAC STENTS TO RCA AND CIRC, EVY HIP REPLACMENTS (DONE IN [place]), rt CATARACT, EGD/colonoscopy, capsule endoscopy, hemorrhoidectomy. Past Anesthesia/Blood Transfusion Reactions: No Reported Reaction Date of Last Stent Placement:: 03/10/15 Type of Cardiac Device: Biventricular Pacemaker Device Placement Date:: originally placed in 2005 and d/t L total shoulder surgery, moved 06/18/11 Smoking Status: Former smoker - Past Family History Father Additional Family Medical History / Comment(s): kidney problem, heart attack Mother Family Medical History: Cancer Additional Family Medical History / Comment(s): colon ca, breast ca, MOM LIVED TO BE 98 YEARS OLD Sister(s) Family Medical History: Cancer Additional Family Medical History / Comment(s): colon ca, breast ca Medications and Allergies Home Medications Medication Instructions Recorded Confirmed Type Anastrozole [Arimidex] 1 mg PO DAILY 03/07/15 03/25/18 History Diltiazem HCl [Cardizem Cd] 120 mg PO DAILY 01/05/16 03/25/18 History Hydrochlorothiazide [Hydrodiuril] 12.5 mg PO DAILY 01/05/16 03/25/18 History Cholecalciferol [Vitamin D3] 1,000 unit PO DAILY 01/20/16 03/25/18 History Nitroglycerin Sl Tabs [Nitrostat] 0.4 mg SUBLINGUAL Q5M PRN 01/20/16 03/25/18 History Fluticasone/Vilanterol [Breo 1 puff INHALATION RT-DAILY 09/04/17 03/25/18 History Ellipta 200-25 Mcg INH] Irbesartan [Avapro] 150 mg PO DAILY 09/04/17 03/25/18 History Metoprolol Tartrate [Lopressor] 25 mg PO BID 09/04/17 03/25/18 History Isosorbide Mononitrate ER [Imdur] 30 mg PO DAILY tab.er.24h 09/08/17 03/25/18 Rx Nystatin 100,000Unit/gm Cream 1 applic TOPICAL BID PRN 01/28/18 03/25/18 History [Mycostatin Cream] diphenhydrAMINE HCL [Benadryl] 25 mg PO HS PRN 01/28/18 03/25/18 History Ferrous Sulfate [Feosol] 325 mg PO BID 30 Days #60 tab 02/11/18 03/25/18 Rx Pantoprazole [Protonix] 40 mg PO AC-BID #60 tablet.dr 02/11/18 03/25/18 Rx Sucralfate [Carafate] 1 gm PO AC-TID #90 tab 02/11/18 03/25/18 Rx Ondansetron [Zofran] 4 mg PO Q6H PRN 03/25/18 03/25/18 History Allergies Allergy/AdvReac Type Severity Reaction Status Date / Time adhesive Allergy Unknown Verified 03/25/18 13:23 cephalexin monohydrate Allergy Unknown Verified 03/25/18 13:23 [From Keflex] ciprofloxacin [From Cipro] Allergy Unknown Verified 03/25/18 13:23 ciprofloxacin HCl Allergy Unknown Verified 03/25/18 13:23 [From Cipro] Penicillins Allergy Rash/Hives Verified 03/25/18 13:23 Sulfa (Sulfonamide Allergy Rash/Hives Verified 03/25/18 13:23 Antibiotics) Physical Exam Vitals: Vital Signs Temp Pulse Pulse Pulse Resp BP BP 03/26/18 04:00 61 18 117/70 03/25/18 23:49 97.1 F L 66 18 130/67 03/25/18 22:21 74 16 127/65 03/25/18 19:03 75 16 100/59 03/25/18 15:19 97.9 F 70 18 116/55 03/25/18 14:21 75 16 130/63 03/25/18 12:51 84 03/25/18 12:40 98.2 F 88 18 128/67 Pulse Ox 03/26/18 04:00 96 03/25/18 23:49 95 03/25/18 22:21 96 03/25/18 19:03 94 L 03/25/18 15:19 97 03/25/18 14:21 97 03/25/18 12:51 03/25/18 12:40 95 Intake and Output 03/25/18 03/26/18 03/26/18 22:59 06:59 14:59 Intake Total 100 480 Balance 100 480 Intake: IV 100 Sodium Chloride 0.9% 1, 100 000 ml @ 20 mls/hr IV . Q24H STA Rx#:[id number] Oral 480 Other: Voiding Method Toilet # Voids 2 Weight 66.2 kg Head normocephalic Neck supple Lungs clear to auscultation bilaterally no wheezing or crackles Heart regular rate and rhythm S1-S2, no rub or gallop Abdomen is soft nontender nondistended positive bowel sounds no hepatosplenomegaly Extremities no edema Neuro alert and orientated to 3 Results CBC & Chem 7: 03/26/18 08:36 08/15/18 08:36 Labs: Abnormal Lab Results - Last 24 Hours (Table) 03/25/18 03/25/18 03/25/18 Range/Units 13:38 13:38 13:38 MCHC (31.0-37.0) g/dL RDW 16.3 H (11.5-15.5) % Lymphocytes # (1.0-4.8) k/uL BUN 23 H (7-17) mg/dL Glucose (74-99) mg/dL Total Creatine Kinase (30-135) U/L Cholesterol 213 H (<200) mg/dL LDL Cholesterol, Calc 104 H (0-99) mg/dL HDL Cholesterol 84 H (40-60) mg/dL 03/25/18 03/25/18 03/26/18 Range/Units 19:25 20:09 01:14 MCHC (31.0-37.0) g/dL RDW 16.4 H (11.5-15.5) % Lymphocytes # (1.0-4.8) k/uL BUN (7-17) mg/dL Glucose (74-99) mg/dL Total Creatine Kinase 29 L 25 L (30-135) U/L Cholesterol (<200) mg/dL LDL Cholesterol, Calc (0-99) mg/dL HDL Cholesterol (40-60) mg/dL 03/26/18 03/26/18 Range/Units 08:36 08:36 MCHC 30.9 L (31.0-37.0) g/dL RDW 16.2 H (11.5-15.5) % Lymphocytes # 0.9 L (1.0-4.8) k/uL BUN 21 H (7-17) mg/dL Glucose 145 H (74-99) mg/dL Total Creatine Kinase (30-135) U/L Cholesterol (<200) mg/dL LDL Cholesterol, Calc (0-99) mg/dL HDL Cholesterol (40-60) mg/dL Thrombosis Risk Factor Assmnt - Choose All That Apply Each Factor Represents 1 point: Acute VT Each Risk Factor Represents 3 Points: Age 75 years or older Thrombosis Risk Factor Assessment Total Risk Factor Score: 4 Thrombosis Risk Factor Assessment Level: Moderate Risk Assessment and Plan Assessment: 1. Chest pain. X-ray completed showing no evidence for acute pulmonary disease. Completed showing atrial sensed ventricular paced rhythm with prolonged AV conduction. troponins 0.014, 0.015 and 0.013. Cardiology services have been consulted. 2D echo has been ordered. Plan for interrogation of pacemaker. Continue Imdur and Lopressor 2. History of peptic ulcer disease. Patient recently admitted and underwent an EGD at that time which revealed 2 ulcers. Patient currently on Protonix and Carafate. Hemoglobin 12.7. 3. History of coronary artery disease 4.History of pacemaker placement 5. History of essential hypertension 6. History of paroxysmal atrial fibrillation. Patient was not on long-term anticoagulation as noted per cardiology from 01/29/2018 cardiac consultation. Patient currently on Lopressor 7. History of breast cancer 8. History of osteoarthritis 9. History of myocardial infarction with stent placement. patient states this was over 5 years ago DVT prophylaxis Lovenox GI prophylaxis Protonix Time with Patient: Greater than 30 (Greater than 60% of the total time spent in counseling and coordination of care. I performed an examination of the patient and discussed their management with the Nurse Practitioner. I have reviewed the Nurse Practitioner's notes and agree with the documented findings and plan of care)
[2018-03-26] MEDS: DOCUSATE 100 MG CAP PO SCH ×2 (17:33→21:21)
[2018-03-26] MEDS ORDERED: ATORVASTATIN 40 MG TAB PO SCH (21:00)
[2018-03-26] MEDS: FERROUS SULFATE 325 MG TAB PO SCH (21:21)
[2018-03-27 04:51] VITALS: RESP 16
[2018-03-27] MEDS: PANTOPRAZOLE 40 MG TABLET PO SCH (06:21)
[2018-03-27] MEDS: SUCRALFATE 1 GM TAB PO SCH ×2 (06:21→11:40)
[2018-03-27 06:27] LABS: Basophils % (A) 1 %; Eosinophils # (A) 0.1 k/uL (0-0.7); Eosinophils % (A) 4 %; HCT 38.5 % (34.0-46.0); HGB 12.1 gm/dL (11.4-16.0); Hypochromasia Slight; Lymphocytes # (A) 0.8 k/uL (1.0-4.8); Lymphocytes % (A) 23 %; MCH 29.4 pg (25.0-35.0); MCHC 31.4 g/dL (31.0-37.0); MCV 93.6 fL (80.0-100.0); Mean Platelet Volume 6.9; Monocytes # (A) 0.5 k/uL (0-1.0); Monocytes % (A) 14 %; Neutrophils # (A) 1.9 k/uL (1.3-7.7); Neutrophils % (A) 55 %; Platelet Count 217 k/uL (150-450); RBC 4.11 m/uL (3.80-5.40); WBC 3.4 k/uL (3.8-10.6)
[2018-03-27 06:33] LABS: ALT 26 U/L (9-52); AST 22 U/L (14-36); Albumin 3.4 g/dL (3.5-5.0); Alkaline Phosphatase 61 U/L (38-126); Anion Gap 7 mmol/L; Blood Urea Nitrogen 18 mg/dL (7-17); Calcium 9.2 mg/dL (8.4-10.2); Carbon Dioxide 28 mmol/L (22-30); Chloride 105 mmol/L (98-107); Glucose 98 mg/dL (74-99); Potassium 4.2 mmol/L (3.5-5.1); Sodium 140 mmol/L (137-145); Total Bilirubin 0.2 mg/dL (0.2-1.3)
[2018-03-27] MEDS ORDERED: SYMBICORT 160-4.5 MCG INHALER INHALATION SCH (08:00)
[2018-03-27] MEDS: FERROUS SULFATE 325 MG TAB PO SCH (08:25)
[2018-03-27] MEDS: DOCUSATE 100 MG CAP PO SCH (08:25)
[2018-03-27] MEDS: METOPROLOL TARTRATE 25 MG TAB PO SCH (08:25)
[2018-03-27] MEDS: ISOSORBIDE MONONITRATE ER 30 MG TAB.ER.24H PO SCH (08:26)
[2018-03-27] MEDS ORDERED: ANASTROZOLE 1 MG TAB PO SCH (09:00)
[2018-03-27] MEDS ORDERED: ENOXAPARIN 40 MG/0.4 ML SYRINGE SQ SCH (09:00)
[2018-03-27] MEDS ORDERED: CHOLECALCIFEROL 1,000 UNIT TAB PO SCH (09:00)
[2018-03-27] MEDS ORDERED: LOSARTAN 50 MG TAB PO SCH (09:00)
[2018-03-27] MEDS ORDERED: ASPIRIN 81 MG PO SCH (09:00)
[2018-03-27] MEDS ORDERED: DILTIAZEM CD 120 MG CAP.ER.24H PO SCH (09:00)
[2018-03-27] MEDS ORDERED: HYDROCHLOROTHIAZIDE 12.5 MG CAP PO SCH (09:00)
[2018-03-27 11:57] VITALS: BP 110/56; PULSE 60; TEMP 97.7
--- NOTE | 2018-03-27 14:00 | P.DS ---
Providers Date of admission: 03/25/18 14:39 Expected date of discharge: 03/27/18 Attending physician: Reyes Saleh Consults: 03/25/18 14:39 Consult Physician Stat Consulting Provider: [facility] Consult Reason/Comments: chest pain Do you want consulting provider notified?: Yes Primary care physician: Dayanna Izquierdo Hospital Course: Discharge diagnosis 1. Chest pain. OK ruled out. Symptoms resolved. Possibly related to her peptic ulcer disease. X-ray completed showing no evidence for acute pulmonary disease. EKG Completed showing atrial sensed ventricular paced rhythm with prolonged AV conduction. troponins 0.014, 0.015 and 0.013. Cardiology services have been consulted. 2-D echo completed and reviewed by cardiology and reported normal per cardiology. Pacemaker interrogated with arrhythmias per cardiology. Cardiology added Lipitor. Patient not a candidate for aspirin due to her history of GI bleed. Aspirin discontinued. Had recent Lexiscan performed in January which was negative for reversible ischemia. 2. History of peptic ulcer disease with GI bleed. Patient recently admitted and underwent an EGD at that time which revealed 2 ulcers. Patient currently on Protonix and Carafate. Hemoglobin 12.7. 3. History of coronary artery disease 4.History of pacemaker placement 5. History of essential hypertension 6. History of paroxysmal atrial fibrillation. Patient was not on long-term anticoagulation as noted per cardiology from 01/29/2018 cardiac consultation. Patient currently on Lopressor 7. History of breast cancer 8. History of osteoarthritis 9. History of myocardial infarction with stent placement. patient states this was over 5 years ago Hospital course This is an 82 year old female patinet of Dr. Izquierdo. Patient presented to the Emergency room with complaints of Chest pain for approximately 2 hours. Patient has a known past medical history of coronary artery disease, cancer, chest pain , GERD, hypertension, myocardial infarction, osteoporosis, pneumonia, seizure disorder, atrial fibrillation patient said she has not been on anticoagulation for many years, Biventricular pacemaker and peptic ulcer disease. Patient recently admitted in January which she underwent EGD which revealed 2 superficial atrial ulcers with no active bleeding. Antral erosive gastritis. Chest x-ray completed showing no evidence for possible acute pulmonary disease. EKG completed showing atrial sensed ventricular paced rhythm with prolonged AV conduction. Troponins 0.014, 0.015 and 0.013. Cardiology services have been consulted. Plan for interrogation of pacer today. Patient denies chest pain or shortness breath at this time.. Denies nausea vomiting or diarrhea.. Denies any urinary symptoms Patient's symptoms have resolved. Patient seen evaluated by cardiology. Troponins are negative 3 sets. Echo completed in normal per cardiology. Patient had pacemaker interrogated with no arrhythmias evident. OK ruled out during the sedation. Patient's symptoms possibly related to her peptic ulcer disease she is to continue with the Protonix and Carafate. No active signs of bleeding hemoglobin 12.1 at discharge. Aspirin discontinued that started on admission. Case discussed with cardiology. Patient does not require aspirin. Patient is medical stable for discharge. Cleared by cardiology for discharge. She'll follow-up with her PCP and cardiology as scheduled. I performed an examination of the patient and discussed their management with the physician Gymnastics Coach. I have reviewed the Physician Gymnastics Coach's notes and agree with the documented findings and plan of care Patient Condition at Discharge: Stable Plan - Discharge Summary Discharge Rx Participant: Yes New Discharge Prescriptions: New Atorvastatin [Lipitor] 40 mg PO HS #30 tab Continue Anastrozole [Arimidex] 1 mg PO DAILY Diltiazem HCl [Cardizem Cd] 120 mg PO DAILY Hydrochlorothiazide [Hydrodiuril] 12.5 mg PO DAILY Nitroglycerin Sl Tabs [Nitrostat] 0.4 mg SUBLINGUAL Q5M PRN PRN Reason: Chest Pain Cholecalciferol [Vitamin D3] 1,000 unit PO DAILY Irbesartan [Avapro] 150 mg PO DAILY Metoprolol Tartrate [Lopressor] 25 mg PO BID Fluticasone/Vilanterol [Breo Ellipta 200-25 Mcg INH] 1 puff INHALATION RT- DAILY Isosorbide Mononitrate ER [Imdur] 30 mg PO DAILY tab.er.24h diphenhydrAMINE HCL [Benadryl] 25 mg PO HS PRN PRN Reason: Insomnia Nystatin 100,000Unit/gm Cream [Mycostatin Cream] 1 applic TOPICAL BID PRN PRN Reason: Rash Pantoprazole [Protonix] 40 mg PO AC-BID #60 tablet. Sucralfate [Carafate] 1 gm PO AC-TID #90 tab Ferrous Sulfate [Feosol] 325 mg PO BID 30 Days #60 tab Ondansetron [Zofran] 4 mg PO Q6H PRN PRN Reason: Nausea Discharge Medication List Anastrozole [Arimidex] 1 mg PO DAILY 03/07/15 [History] Diltiazem HCl [Cardizem Cd] 120 mg PO DAILY 01/05/16 [History] Hydrochlorothiazide [Hydrodiuril] 12.5 mg PO DAILY 01/05/16 [History] Cholecalciferol [Vitamin D3] 1,000 unit PO DAILY 01/20/16 [History] Nitroglycerin Sl Tabs [Nitrostat] 0.4 mg SUBLINGUAL Q5M PRN 01/20/16 [History] Fluticasone/Vilanterol [Breo Ellipta 200-25 Mcg INH] 1 puff INHALATION RT-DAILY 09/04/17 [History] Irbesartan [Avapro] 150 mg PO DAILY 09/04/17 [History] Metoprolol Tartrate [Lopressor] 25 mg PO BID 09/04/17 [History] Isosorbide Mononitrate ER [Imdur] 30 mg PO DAILY tab.er.24h 09/08/17 [Rx] Nystatin 100,000Unit/gm Cream [Mycostatin Cream] 1 applic TOPICAL BID PRN [History] diphenhydrAMINE HCL [Benadryl] 25 mg PO HS PRN 01/28/18 [History] Ferrous Sulfate [Feosol] 325 mg PO BID 30 Days #60 tab 02/11/18 [Rx] Pantoprazole [Protonix] 40 mg PO AC-BID #60 tablet. 02/11/18 [Rx] Sucralfate [Carafate] 1 gm PO AC-TID #90 tab 02/11/18 [Rx] Ondansetron [Zofran] 4 mg PO Q6H PRN 03/25/18 [History] Atorvastatin [Lipitor] 40 mg PO HS #30 tab 03/27/18 [Rx] Follow up Appointment(s)/Referral(s): Poncho García MD [STAFF PHYSICIAN] - 04/10/18 2:30 pm (Please keep previous follow up appointment.) Dayanna Izquierdo MD [Primary Care Provider] - 04/03/18 1:15 pm () Ehsan Wang DO [Doctor of Osteopathic Medicine] - 04/30/18 10:30 am ([facility] -please show up at 10:00 am to fill out paperwork) Patient Instructions/Handouts: Chest Pain (DC), Anemia (DC) Activity/Diet/Wound Care/Special Instructions: Cleared by cardiology. Diet: cardiac Activity: as tolerated Discharge Disposition: HOME SELF-CARE
--- NOTE | 2018-03-27 15:04 | P.PN ---
Subjective Progress Note Date: 03/27/18 This is an 82-year-old female with known history of coronary artery disease and prior angioplasty. He has previously undergone angioplasty and stenting of the right coronary artery and circumflex. History also of hypertension, hyperlipidemia, peripheral vascular disease, GERD, right breast cancer status post radiation and lumpectomy, complete heart block with prior pacemaker implantation. Patient presents to the hospital on this occasion with symptoms of epigastric discomfort. She was in the hospital in January, with symptoms of atypical chest pain at that time, underwent a Lexiscan stress test that was negative for any reversible ischemia. Upon review of prior records, patient has had multiple presentations to the emergency room and also admission to the hospital since January, with symptoms of epigastric discomfort. She also has been complaining of dizziness. During the admission in January of this year, patient's hemoglobin did drop down to 5.2, patient did undergo an EGD on February 07 which revealed 2 superficial antral ulcers measuring 5 mm and 7 mm in size with no active bleeding. Antral erosive gastritis. Patient did come to the emergency room on March 21 with symptoms of dizziness, brain CT and CT angiography were performed which did not reveal any significant findings. Hemoglobin 13.2. Patient presents to the hospital on this occasion with symptoms of epigastric tenderness and discomfort with mild associated dizziness. She describes her discomfort as a burning discomfort, it much worse after she eats, and the area is quite tender on palpation. Chest x-ray did not reveal evidence for acute pulmonary disease. EKG shows a paced rhythm. Blood pressure 116/70, heart rate in the 60s, 96% on room air. White blood cell count is normal, hemoglobin 12.7, platelet count 244. Sodium 138, potassium 4.5 , BUN 23, creatinine 0.6. Magnesium 2.1. Troponins 0.012, 0.014, 0.015, 0.013. At the time of my examination this morning, patient continues to complain of this epigastric discomfort, she states it never goes away completely. 03/27/2018 Patient seen and examined this morning, denies any chest pain. Echo revealed normal left ventricular systolic function. From cardiology's perspective, patient may be able to be discharged once cleared by primary. She does have a follow-up appointment made with Dr. García in the office which she has been advised to keep. Objective - Vital Signs Vital signs: Vital Signs Temp 97.7 F 03/27/18 11:55 Pulse 60 03/27/18 11:55 Resp 16 03/27/18 11:55 BP 110/56 03/27/18 11:55 Pulse Ox 96 03/27/18 11:55 Intake & Output 03/26/18 03/27/18 03/27/18 18:59 06:59 18:59 Intake Total 720 160 600 Output Total 800 Balance -80 160 600 Weight 67.7 kg Intake: IV 160 Sodium Chloride 0.9% 1, 160 000 ml @ 20 mls/hr IV . Q24H STA Rx#:[id number] Oral 720 600 Output: Urine 800 Other: Voiding Method Toilet Toilet Toilet # Voids 1 2 # Bowel Movements 1 - Exam PHYSICAL EXAMINATION: GENERAL: 82-year-old female with no acute complaints at 7 examination HEENT: Head is atraumatic, normocephalic. Pupils equal, round. Sclera anicteric. Conjunctiva are clear. Mucous membranes of the mouth are moist. Neck is supple. There is no elevated jugular venous pressure.] bruit is heard. HEART EXAMINATION: Heart S1, S2 systolic murmur heard . CHEST EXAMINATION: Lungs are clear to auscultation and precussion. No chest wall tenderness is noted on palpation or with deep breathing. ABDOMEN: Soft, nontender. Bowel sounds are heard. No organomegaly noted. EXTREMITIES: 2+ peripheral pulses with no evidence of peripheral edema and no calf tenderness noted. NEUROLOGIC patient is awake, alert and oriented ?-3. . - Labs CBC & Chem 7: 03/27/18 05:55 03/27/18 05:55 Labs: Abnormal Lab Results - Last 24 Hours (Table) 03/27/18 03/27/18 Range/Units 05:55 05:55 WBC 3.4 L (3.8-10.6) k/uL RDW 16.0 H (11.5-15.5) % Lymphocytes # 0.8 L (1.0-4.8) k/uL BUN 18 H (7-17) mg/dL Total Protein 6.0 L (6.3-8.2) g/dL Albumin 3.4 L (3.5-5.0) g/dL Assessment and Plan Plan: Assessment and plan #1 symptoms of epigastric discomfort, atypical for acute coronary syndrome. EKG shows a paced rhythm with underlying sinus rhythm with PACs. Troponins 0.012, 0.014, 0.015, 0.013. Lexiscan performed in January negative for reversible ischemia. #2 recent admission to the hospital with anemia, underwent an EGD at that time, in January which revealed 2 ulcers. #3 symptoms of recurrent dizziness, patient was recently in the emergency room earlier this week, CTA and CT of the brain did not reveal any significant findings. We will check orthostatic heart rate and blood pressure every shift. We'll also interrogate pacemaker. #4 known history of coronary artery disease with prior stent placements #5 prior pacemaker implantation for complete heart block #6 hypertension #7 hyperlipidemia #8 peripheral vascular disease #9 GERD #10 history of right breast cancer status post radiation and lumpectomy #10 prior history of smoking Plan From cardiology's perspective, patient may be able to be discharged home today. She has a follow-up appointment with Dr. García in the office which she has been advised to keep. DNP note has been reviewed, I agree with a documented findings and plan of care. Patient was seen and examined.
--- NOTE | 2018-04-04 13:38 | ECHOF ---
Referral Reason:chest pain MEASUREMENTS -------- HEIGHT: 157.5 cm WEIGHT: 65.8 kg BP: 117/70 IVSd: 1.6 cm (0.6 - 1.1) LVIDd: 3.4 cm (3.9 - 5.3) LVPWd: 1.2 cm (0.6 - 1.1) IVSs: 1.7 cm LVIDs: 2.9 cm LVPWs: 1.3 cm LAESV Index (A-L): 25.64 ml/m Ao Diam: 2.7 cm (2.0 - 3.7) AV Cusp: 1.2 cm (1.5 - 2.6) LA Diam: 3.4 cm (2.7 - 3.8) MV EXCURSION: 7.289 mm (> 18.000) MV EF SLOPE: 36 mm/s (70 - 150) EPSS: 0.5 cm MV E Steven: 0.44 m/s MV DecT: 281 ms MV A Steven: 1.05 m/s MV E/A Ratio: 0.42 AV maxP.20 mmHg AV meanP.36 mmHg RAP: 5.00 mmHg RVSP: 20.73 mmHg FINDINGS -------- Paced rhythm. This was a technically adequate study. The left ventricular size is normal. There is moderate concentric left ventricular hypertrophy. O verall left ventricular systolic function is low-normal with, an EF between 50 - 55 %. The right ventricle is normal in size. The left atrial size is normal. LA is midly dilated 29-33ml/m2. The right atrial size is normal. There is mild aortic valve sclerosis. Peak/mean gradient across the Aortic Valve is 8.20mmHg / 5.36 mmHg. Mild mitral regurgitation is present. Mild tricuspid regurgitation present. There is no evidence of pulmonary hypertension. The right v entricular systolic pressure, as measured by Doppler, is 20.73mmHg. There is no pulmonic regurgitation present. The aortic root size is normal. There is no pericardial effusion. CONCLUSIONS -------- 1. The left ventricular size is normal. 2. There is moderate concentric left ventricular hypertrophy. 3. Overall left ventricular systolic function is low-normal with, an EF between 50 - 55 %. 4. The right ventricle is normal in size. 5. The left atrial size is normal. 6. The right atrial size is normal. 7. There is mild aortic valve sclerosis. 8. Peak/mean gradient across the Aortic Valve is 8.20mmHg / 5.36mmHg. 9. Mild mitral regurgitation is present. 10. Mild tricuspid regurgitation present. 11. There is no evidence of pulmonary hypertension. 12. The right ventricular systolic pressure, as measured by Doppler, is 20.73mmHg. 13. There is no pulmonic regurgitation present. 14. The aortic root size is normal. 15. There is no pericardial effusion. MACHINE CONTAINER WASHER: Krupa William RDCS
== END 2018-03-27 15:12 | disposition home or self-care (01) ==
LOC: EC 12:39 → 3OBS 14:39 → 6SEL 19:53
PROVIDERS: ADMIT Internal Medicine; ATTEND Internal Medicine
DX: R07.89 Other chest pain (principal); R10.13 Epigastric pain; R42 Dizziness and giddiness; I48.0 Paroxysmal atrial fibrillation; I25.10 Atherosclerotic heart disease of native coronary artery without angina pectoris; I10 Essential (primary) hypertension; K21.9 Gastro-esophageal reflux disease without esophagitis; G40.909 Epilepsy, unspecified, not intractable, without status epilepticus; M15.9 Polyosteoarthritis, unspecified; D50.9 Iron deficiency anemia, unspecified; I73.9 Peripheral vascular disease, unspecified; E78.5 Hyperlipidemia, unspecified; M81.0 Age-related osteoporosis without current pathological fracture; M46.92 Unspecified inflammatory spondylopathy, cervical region; M46.90 Unspecified inflammatory spondylopathy, site unspecified; M54.31 Sciatica, right side; H26.9 Unspecified cataract; K59.00 Constipation, unspecified; I44.2 Atrioventricular block, complete; Z79.811 Long term (current) use of aromatase inhibitors; Z79.51 Long term (current) use of inhaled steroids; Z79.899 Other long term (current) drug therapy; Z88.0 Allergy status to penicillin; Z88.1 Allergy status to other antibiotic agents; Z88.2 Allergy status to sulfonamides; Z91.048 Other nonmedicinal substance allergy status; Z96.612 Presence of left artificial shoulder joint; I25.2 Old myocardial infarction; Z87.11 Personal history of peptic ulcer disease; Z87.01 Personal history of pneumonia (recurrent); Z85.3 Personal history of malignant neoplasm of breast; Z87.440 Personal history of urinary (tract) infections; Z96.643 Presence of artificial hip joint, bilateral; Z90.710 Acquired absence of both cervix and uterus; Z95.5 Presence of coronary angioplasty implant and graft; Z95.0 Presence of cardiac pacemaker; Z92.3 Personal history of irradiation; Z87.891 Personal history of nicotine dependence; Z90.89 Acquired absence of other organs; Z86.79 Personal history of other diseases of the circulatory system; Z87.820 Personal history of traumatic brain injury; Z87.09 Personal history of other diseases of the respiratory system; Z82.49 Family history of ischemic heart disease and other diseases of the circulatory system; Z80.3 Family history of malignant neoplasm of breast; Z80.0 Family history of malignant neoplasm of digestive organs; Z84.1 Family history of disorders of kidney and ureter
CPT/HCPCS: 99285 ×2; 96365 ×2; 96375 ×2; 96376 ×2; 96366; 96372; 36415; 94640; 93005; 93306; 80061; 80053 ×3; 82550 ×2; 82553 ×2; 83735; 84484 ×2; 85025 ×3; 85610; 85730; 71046; G0378 ×4; J1644 ×2; J1650; S0170

== ENCOUNTER 2018-06-03 18:07 | Emergency (ER) | payer MEDICARE, OTHER ==
[2018-06-03] MEDS ORDERED: SODIUM CHLORIDE 0.9% 500 ML 500 ML IV STA (18:50)
[2018-06-03] MEDS ORDERED: MECLIZINE 25 MG TAB PO STA (18:52)
[2018-06-03] MEDS ORDERED: DIAZEPAM 5 MG/ML 2 ML INJ IVP STA (19:02)
--- NOTE | 2018-06-03 19:06 | ED ---
General Adult HPI - General Chief complaint: Dizziness Stated complaint: dizziness Time Seen by Provider: 06/03/18 18:10 Source: EMS, RN notes reviewed Mode of arrival: EMS Limitations: no limitations - History of Present Illness Initial comments: This is an 82-year-old female presents emergency Department complaining of dizziness. Patient states she's had this before and she believes it was called vertigo. Patient states it occurred 2 months ago. Patient states it started 2 days ago this time and anytime she moves her head the symptoms worsened. Patient states she's been pain in the last few days and that is when it started. Patient denies any headache patient denies any numbness or weakness. Patient denies any visual disturbance patient denies any speech disturbance. Patient denies any palpitations. Patient has chest pain difficulty breathing shortness of breath. Patient denied abdominal pain patient denies nausea vomiting or diarrhea. Patient denied any symptoms that are different from the last episode she had. - Related Data Home Medications Medication Instructions Recorded Confirmed Anastrozole [Arimidex] 1 mg PO DAILY 03/07/15 06/03/18 Diltiazem HCl [Cardizem Cd] 120 mg PO DAILY 01/05/16 06/03/18 Hydrochlorothiazide [Hydrodiuril] 12.5 mg PO DAILY 01/05/16 06/03/18 Cholecalciferol [Vitamin D3] 1,000 unit PO DAILY 01/20/16 06/03/18 Nitroglycerin Sl Tabs [Nitrostat] 0.4 mg SUBLINGUAL Q5M PRN 01/20/16 06/03/18 Fluticasone/Vilanterol [Breo 1 puff INHALATION RT-DAILY 09/04/17 06/03/18 Ellipta 200-25 Mcg INH] Irbesartan [Avapro] 150 mg PO DAILY 09/04/17 06/03/18 Metoprolol Tartrate [Lopressor] 25 mg PO BID 09/04/17 06/03/18 Nystatin 100,000Unit/gm Cream 1 applic TOPICAL BID PRN 01/28/18 06/03/18 [Mycostatin Cream] diphenhydrAMINE HCL [Benadryl] 25 mg PO HS PRN 01/28/18 06/03/18 Ondansetron [Zofran] 4 mg PO Q6H PRN 03/25/18 06/03/18 Aspirin EC [Ecotrin Low Dose] 81 mg PO DAILY 06/03/18 06/03/18 Celecoxib [CeleBREX] 100 mg PO DAILY PRN 06/03/18 06/03/18 Ferrous Sulfate [Feosol] 325 mg PO DAILY 06/03/18 06/03/18 HYDROcodone/APAP 5-325MG [[place] 1 tab PO DAILY PRN 06/03/18 06/03/18 5-325] Previous Rx's Medication Instructions Recorded Isosorbide Mononitrate ER [Imdur] 30 mg PO DAILY tab.er.24h 09/08/17 Pantoprazole [Protonix] 40 mg PO AC-BID #60 tablet. 02/11/18 Sucralfate [Carafate] 1 gm PO AC-TID #90 tab 02/11/18 Meclizine [Antivert] 25 mg PO TID #20 tab 06/03/18 Allergies Allergy/AdvReac Type Severity Reaction Status Date / Time adhesive Allergy Unknown Verified 06/03/18 19:22 cephalexin monohydrate Allergy Unknown Verified 06/03/18 19:22 [From Keflex] ciprofloxacin [From Cipro] Allergy Unknown Verified 06/03/18 19:22 ciprofloxacin HCl Allergy Unknown Verified 06/03/18 19:22 [From Cipro] Penicillins Allergy Rash/Hives Verified 06/03/18 19:22 Sulfa (Sulfonamide Allergy Rash/Hives Verified 06/03/18 19:22 Antibiotics) Review of Systems ROS Statement: Those systems with pertinent positive or pertinent negative responses have been documented in the HPI. ROS Other: All systems not noted in ROS Statement are negative. Past Medical History Past Medical History: Atrial Fibrillation, Coronary Artery Disease (CAD), Cancer , Chest Pain / Angina, GERD/Reflux, Hypertension, Myocardial Infarction ([place]), Osteoarthritis (OA), Pneumonia, Seizure Disorder Additional Past Medical History / Comment(s): R breast cancer with lumpectomy/ radiation, CHB with pacer, cerebral aneurysm, arthritis multiple joints and in neck/back, sciatica right sided, balance issues at times, fall with concussion, multiple bronchitis, iron deficiency anemia, UTIs, stomach ulcer in past.constipation,lt eye cataract Last Myocardial Infarction Date:: 2014 History of Any Multi-Drug Resistant Organisms: None Reported Past Surgical History: Appendectomy, Back Surgery, Breast Surgery, Heart Catheterization With Stent, Hysterectomy, Joint Replacement, Pacemaker Additional Past Surgical History / Comment(s): right breast lumpectomy, cervical surgery, lumbar surgery, left shoulder replaced, right thumb surgery, CARDIAC STENTS TO RCA AND CIRC, EVY HIP REPLACMENTS (DONE IN [place]), rt CATARACT, EGD/colonoscopy, capsule endoscopy, hemorrhoidectomy. Past Anesthesia/Blood Transfusion Reactions: No Reported Reaction Date of Last Stent Placement:: 03/10/15 Type of Cardiac Device: Biventricular Pacemaker Device Placement Date:: originally placed in 2005 and d/t L total shoulder surgery, moved 06/18/11 Past Psychological History: No Psychological Hx Reported Smoking Status: Former smoker Past Alcohol Use History: Daily Past Drug Use History: None Reported - Past Family History Father Additional Family Medical History / Comment(s): kidney problem, heart attack Mother Family Medical History: Cancer Additional Family Medical History / Comment(s): colon ca, breast ca, MOM LIVED TO BE 98 YEARS OLD Sister(s) Family Medical History: Cancer Additional Family Medical History / Comment(s): colon ca, breast ca General Exam - General Exam Comments Initial Comments: GENERAL: Patient is well-developed and well-nourished. Patient is nontoxic and well- hydrated and is in mild distress. ENT: Neck is soft and supple. No significant lymphadenopathy is noted. Oropharynx is clear. Moist mucous membranes. Neck has full range of motion without eliciting any pain. EYES: The sclera were anicteric and conjunctiva were pink and moist. Extraocular movements were intact and pupils were equal round and reactive to light. Eyelids were unremarkable. PULMONARY: Unlabored respirations. Good breath sounds bilaterally. No audible rales rhonchi or wheezing was noted. CARDIOVASCULAR: There is a regular rate and rhythm without any murmurs gallops or rubs. ABDOMEN: Soft and nontender with normal bowel sounds. No palpable organomegaly was noted. There is no palpable pulsatile mass. SKIN: Skin is clear with no lesions or rashes and otherwise unremarkable. NEUROLOGIC: Patient is alert and oriented x3. Cranial nerves II through XII are grossly intact. Motor and sensory are also intact. Normal speech, volume and content. Symmetrical smile. Finger to nose testing was normal bilaterally MUSCULOSKELETAL: Normal extremities with adequate strength and full range of motion. No lower extremity swelling or edema. No calf tenderness. LYMPHATICS: No significant lymphadenopathy is noted PSYCHIATRIC: Normal psychiatric evaluation. Limitations: no limitations Course Vital Signs 06/03/18 06/03/18 18:10 18:15 Temperature 97.5 F L Pulse Rate 60 62 Respiratory 18 16 Rate Blood Pressure 173/79 184/91 O2 Sat by Pulse 96 95 Oximetry Medical Decision Making - Medical Decision Making EKG shows a paced rhythm at 60 bpm GA interval 190 At 72 QT Interval Is 44 QTC Is 44. Chest x-ray shows no acute abnormalities. Patient received Valium and Antivert in the emergency department and her dizziness was much improved. At this point time was thought the patient could go home on medication for vertigo and follow-up with primary medical care doctor. Patient was in agreement with this. - Lab Data Result diagrams: 06/03/18 18:52 06/03/18 18:52 Lab Results 06/03/18 06/03/18 06/03/18 Range/Units 18:52 18:52 18:52 WBC 3.9 (3.8-10.6) k/uL RBC 4.65 (3.80-5.40) m/uL Hgb 13.7 (11.4-16.0) gm/dL Hct 42.4 (34.0-46.0) % MCV 91.3 (80.0-100.0) fL MCH 29.5 (25.0-35.0) pg MCHC 32.3 (31.0-37.0) g/dL RDW 15.5 (11.5-15.5) % Plt Count 245 (150-450) k/uL Neutrophils % 54 % Lymphocytes % 29 % Monocytes % 9 % Eosinophils % 5 % Basophils % 1 % Neutrophils # 2.1 (1.3-7.7) k/uL Lymphocytes # 1.1 (1.0-4.8) k/uL Monocytes # 0.4 (0-1.0) k/uL Eosinophils # 0.2 (0-0.7) k/uL Basophils # 0.0 (0-0.2) k/uL PT (9.0-12.0) sec INR (<1.2) APTT (22.0-30.0) sec Sodium 139 (137-145) mmol/L Potassium 4.2 (3.5-5.1) mmol/L Chloride 104 (98-107) mmol/L Carbon Dioxide 26 (22-30) mmol/L Anion Gap 9 mmol/L BUN 21 H (7-17) mg/dL Creatinine 0.76 (0.52-1.04) mg/dL Est GFR (CKD-EPI)AfAm 85 (>60 ml/min/1.73 sqM) Est GFR (CKD-EPI)NonAf 74 (>60 ml/min/1.73 sqM) Glucose 106 H (74-99) mg/dL Calcium 9.6 (8.4-10.2) mg/dL Magnesium 2.0 (1.6-2.3) mg/dL Total Bilirubin 0.6 (0.2-1.3) mg/dL AST 35 (14-36) U/L ALT 23 (9-52) U/L Alkaline Phosphatase 87 (38-126) U/L Total Creatine Kinase 61 (30-135) U/L CK-MB (CK-2) 1.5 (0.0-2.4) ng/mL CK-MB (CK-2) Rel Index 2.5 Troponin I <0.012 (0.000-0.034) ng/mL Total Protein 7.6 (6.3-8.2) g/dL Albumin 4.2 (3.5-5.0) g/dL 06/03/18 Range/Units 18:52 WBC (3.8-10.6) k/uL RBC (3.80-5.40) m/uL Hgb (11.4-16.0) gm/dL Hct (34.0-46.0) % MCV (80.0-100.0) fL MCH (25.0-35.0) pg MCHC (31.0-37.0) g/dL RDW (11.5-15.5) % Plt Count (150-450) k/uL Neutrophils % % Lymphocytes % % Monocytes % % Eosinophils % % Basophils % % Neutrophils # (1.3-7.7) k/uL Lymphocytes # (1.0-4.8) k/uL Monocytes # (0-1.0) k/uL Eosinophils # (0-0.7) k/uL Basophils # (0-0.2) k/uL PT 10.2 (9.0-12.0) sec INR 1.0 (<1.2) APTT 24.7 (22.0-30.0) sec Sodium (137-145) mmol/L Potassium (3.5-5.1) mmol/L Chloride (98-107) mmol/L Carbon Dioxide (22-30) mmol/L Anion Gap mmol/L BUN (7-17) mg/dL Creatinine (0.52-1.04) mg/dL Est GFR (CKD-EPI)AfAm (>60 ml/min/1.73 sqM) Est GFR (CKD-EPI)NonAf (>60 ml/min/1.73 sqM) Glucose (74-99) mg/dL Calcium (8.4-10.2) mg/dL Magnesium (1.6-2.3) mg/dL Total Bilirubin (0.2-1.3) mg/dL AST (14-36) U/L ALT (9-52) U/L Alkaline Phosphatase (38-126) U/L Total Creatine Kinase (30-135) U/L CK-MB (CK-2) (0.0-2.4) ng/mL CK-MB (CK-2) Rel Index Troponin I (0.000-0.034) ng/mL Total Protein (6.3-8.2) g/dL Albumin (3.5-5.0) g/dL Disposition Clinical Impression: Vertigo Disposition: HOME SELF-CARE Condition: Good Instructions: Vertigo (ED) Prescriptions: Meclizine [Antivert] 25 mg PO TID #20 tab Is patient prescribed a controlled substance at d/c from ED?: No Referrals: Dayanna Izquierdo MD [Primary Care Provider] - 1-2 days Time of Disposition: 20:27
[2018-06-03 19:26] LABS: Basophils % (A) 1 %; Eosinophils # (A) 0.2 k/uL (0-0.7); Eosinophils % (A) 5 %; HCT 42.4 % (34.0-46.0); HGB 13.7 gm/dL (11.4-16.0); Lymphocytes # (A) 1.1 k/uL (1.0-4.8); Lymphocytes % (A) 29 %; MCH 29.5 pg (25.0-35.0); MCHC 32.3 g/dL (31.0-37.0); MCV 91.3 fL (80.0-100.0); Monocytes # (A) 0.4 k/uL (0-1.0); Monocytes % (A) 9 %; Neutrophils # (A) 2.1 k/uL (1.3-7.7); Neutrophils % (A) 54 %; Platelet Count 245 k/uL (150-450); RBC 4.65 m/uL (3.80-5.40); RDW 15.5 % (11.5-15.5); WBC 3.9 k/uL (3.8-10.6)
[2018-06-03 19:34] LABS: Creatine Kinase 61 U/L (30-135)
[2018-06-03 19:36] LABS: Albumin 4.2 g/dL (3.5-5.0); Calcium 9.6 mg/dL (8.4-10.2); Potassium 4.2 mmol/L (3.5-5.1); Total Bilirubin 0.6 mg/dL (0.2-1.3); Total Protein 7.6 g/dL (6.3-8.2)
[2018-06-03 19:39] LABS: Partial Thromboplastin Time 24.7 sec (22.0-30.0); Prothrombin Time 10.2 sec (9.0-12.0)
[2018-06-03 19:47] LABS: Creatine Kinase MB 1.5 ng/mL (0.0-2.4); Troponin I <0.012 ng/mL (0.000-0.034)
--- NOTE | 2018-06-03 20:24 | XR ---
EXAMINATION: XR chest 2V DATE AND TIME: 06/03/2018 7:34 PM CLINICAL INDICATION: Chest Pain TECHNIQUE: PA and lateral COMPARISON: 03/25/2018 FINDINGS: The overlying soft tissues are prominent. The lungs appear to be clear bilaterally. The pleural spaces are negative. The cardiac silhouette is mildly enlarged, unchanged. Aortic ectasia is noted. The remainder of the m ediastinal silhouette is unremarkable. The skeletal structures and extrathoracic soft tissues are negative for acute findings. IMPRESSION: NO ACUTE PROCESS.
[2018-06-03 20:42] VITALS: BP 161/76; PULSE 60; RESP 18; TEMP 97.6
== END 2018-06-03 20:42 | disposition home or self-care (01) ==
LOC: EC 18:07
DX: R42 Dizziness and giddiness (principal); I48.91 Unspecified atrial fibrillation; I25.119 Atherosclerotic heart disease of native coronary artery with unspecified angina pectoris; I10 Essential (primary) hypertension; I25.2 Old myocardial infarction; Z79.82 Long term (current) use of aspirin; Z79.51 Long term (current) use of inhaled steroids; Z79.899 Other long term (current) drug therapy; Z88.0 Allergy status to penicillin; Z88.1 Allergy status to other antibiotic agents; Z88.2 Allergy status to sulfonamides; Z91.048 Other nonmedicinal substance allergy status; Z87.891 Personal history of nicotine dependence; Z85.3 Personal history of malignant neoplasm of breast; Z95.0 Presence of cardiac pacemaker; Z96.612 Presence of left artificial shoulder joint; Z95.5 Presence of coronary angioplasty implant and graft
CPT/HCPCS: 36415; 93005; 80053; 82550; 82553; 83735; 84484; 85025; 85610; 85730; 71046; 99284; 96374; 96361; J3360

== ENCOUNTER → 2018-08-01 | Outpatient (CLI) | payer MEDICARE, OTHER ==
--- NOTE | 2018-08-01 10:10 | CT ---
EXAMINATION TYPE: CT lumbar spine wo con DATE OF EXAM: 08/01/2018 COMPARISON: None HISTORY: Spondylosis without myelopathy or radiculopathy. CT DLP: 857.[address] of the lumbar spine was performed. Bone and soft tissue window settings are submitted as well as coronal and sagittal reconstructions. L1-L2: Severe disc desiccation with vacuum disc. Ventral and dorsal spondylosis with disc bulge and e ncapsulating spur resulting in disc endplate complex. Effacement of the ventral thecal sac with mild central stenosis. Facet joint arthropathy. L2-L3: Severe disc desiccation with vacuum disc. Ventral and dorsal spondylosis with disc bulge and e ncapsulating spur resulting in disc endplate complex. Effacement of the ventral thecal sac with moder ate central stenosis. Facet joint arthropathy. L3-L4: Severe disc desiccation with vacuum disc. Ventral and dorsal spondylosis with disc bulge and e ncapsulating spur resulting in disc endplate complex. Effacement of the ventral thecal sac with mild central stenosis. Facet joint arthropathy. L4-L5: Severe disc desiccation with vacuum disc. Ventral and dorsal spondylosis with disc bulge and e ncapsulating spur resulting in disc endplate complex. Effacement of the ventral thecal sac with mild central stenosis. Facet joint arthropathy. L5-S1: Severe disc desiccation with vacuum disc. Ventral and dorsal spondylosis with disc bulge and e ncapsulating spur resulting in disc endplate complex. Effacement of the ventral thecal sac without ce ntral stenosis at this time. Facet joint arthropathy. Mild bilateral foraminal encroachment. No paraspinal masses are identified. Lumbar segments are free if fracture. IMPRESSION: 1. Multilevel degenerative disc disease. 2. Multilevel central stenosis as outlined above.
== END | disposition home or self-care (01) ==
LOC: RADCTMAIN 09:34
PROVIDERS: ATTEND Physical Medicine & Rehabilitation
DX: M48.061 Spinal stenosis, lumbar region without neurogenic claudication (principal); M51.16 Intervertebral disc disorders with radiculopathy, lumbar region; M41.26 Other idiopathic scoliosis, lumbar region; Z95.5 Presence of coronary angioplasty implant and graft; Z98.890 Other specified postprocedural states
CPT/HCPCS: 72131

== ENCOUNTER → 2019-02-11 | Outpatient (CLI) | payer MEDICARE, OTHER ==
--- NOTE | 2019-02-16 07:49 | MM ---
Reason for exam: clinical finding. Last mammogram was performed 1 year and 9 months ago. History: Patient is postmenopausal and has history of breast cancer at age 73. Family history of breast cancer in mother at age 90 and breast cancer in sister. Lumpectomy of the right breast, 2008. Benign excisional biopsy of both breasts, 1959. Benign excisional biopsy of the right breast, 1949. Indicated problem(s): non-bloody discharge in the right breast. Physical Findings: Nurse did not find any significant physical abnormalities on exam. MG 3D Diag Mammo W/Cad EVY Bilateral CC and MLO view(s) were taken. Prior study comparison: May 23, 2017, bilateral MG 3d diag mammo w/cad EVY. November 01, 2016, mammogram, performed at [place]. There are scattered fibroglandular densities. Benign appearing bilateral calcifications. Left pacemaker is noted. Right skin thickening has notably increased from the prior exams. Ultrasound will be performed in the retroareolar right breast for white nipple discharge. These results were verbally communicated with the patient and result sheet given to the patient on 02/11/19. ASSESSMENT: Incomplete: need additional imaging evaluation, BI-RAD 0 RECOMMENDATION: Ultrasound of the right breast.
--- NOTE | 2019-02-16 07:58 | USB ---
Reason for exam: additional evaluation requested from abnormal screening. History: Patient is postmenopausal and has history of breast cancer at age 73. Family history of breast cancer in mother at age 90 and breast cancer in sister. Lumpectomy of the right breast, 2008. Benign excisional biopsy of both breasts, 1959. Benign excisional biopsy of the right breast, 1949. US Breast RT Right complete breast ultrasound includes all four quadrants, the retroareolar region and axilla. Finding demonstrates a 1.3 x 1.5 x 0.5cm oval, hypoechoic lesion at the posterior nipple, questionable area versus artifact, antiradial, hypoechoic lesion at 12-1 o'clock dropout, an irregular, hypoechoic, scar area, dystrophic calcifications at 7 o'clock and a 1.4 x 1.6 x 0.8cm oval, hypoechoic lesion at 10 o'clock, possible seroma, mammographically stable from 2015. These results were verbally communicated with the patient and result sheet given to the patient on 02/11/19. ASSESSMENT: Probably benign, BI-RAD 3 RECOMMENDATION: Breast MRI of the right breast. (could be considered) Surgical consultation of the right breast. (discharge and skin thickening, if no clinical cause, punch biopsy would be recommended) Manage patient on a clinical basis. Patient going to see surgeon at [facility]. Ultrasound of the right breast in 3 months. (regarding possible seroma at 10 o'clock and possible artifact posterior nipple)
== END | disposition home or self-care (01) ==
LOC: RADMAMWWP 14:13
PROVIDERS: ATTEND Family Medicine
DX: N64.52 Nipple discharge (principal); R92.8 Other abnormal and inconclusive findings on diagnostic imaging of breast
CPT/HCPCS: 77066; 76641; G0279; 77062

== ENCOUNTER → 2019-04-10 | Outpatient (CLI) | payer MEDICARE, OTHER ==
[2019-04-10 15:10] VITALS: BP 135/76; PULSE 64; RESP 18; TEMP 98.4; BMI 25.8
--- NOTE | 2019-04-10 15:45 | P.GSHP ---
History of Present Illness H&P Date: 04/10/19 Chief Complaint: fullness in right breast Kelli is an 83-year-old white female who presents for breast evaluation. Patient did have a right breast lumpectomy and sentinel node biopsy for invasive ductal carcinoma approximately 10 years ago. She is presently on Arimidex. She did have radiation therapy but no chemotherapy. This surgery was done at [facility]. For several months she has felt some fullness, and jabbing discomfort in the periareolar region in the right breast. In the February 2019 a bilateral mammogram was done after which it was recommended that she have an ultrasound of the right breast. The ultrasound revealed some skin thickening as well as a 1.3-1.5 cm lesion at the posterior nipple questionable area versus artifact. The patient was recommended to have a repeat ultrasound of the right breast in 3 months time. Additionally a punch biopsy of the skin of the breast is nothing could be palpated in the right breast. The patient herself has had some clear nipple discharge on the right but nothing on the left. Family History: sister: from breast cancer, colon cancer mother: from breast cancer, colon cancer brother: throat cancer Hormonal History: menarche: 15 breast fed: no, first at 20 menopause: hysterectomy took part of ovaries, not for cancer BCP: 1 year hormones: none Surgical History: bilateral hips shoulder replacement lumpectomy and node biopsy in the right breast Medical History: 1. sciatica uses walker 2. HTN Social History: smoke: none stopped 40 years ago alcohol: two a night drugs: none - Constitutional Constitutional: Denies chills, Denies fever - EENT Comment: cataract surgery Eyes: denies blurred vision, denies pain Ears: bilateral: decreased hearing, deny: tinnitus Ears, nose, mouth and throat: Reports headache, Denies sore throat - Breasts Breasts: bilateral: as per HPI - Cardiovascular Comment: cardiac stints, pacemaker Cardiovascular: Reports high blood pressure - Respiratory Comment: former smoker Respiratory: Denies cough, Denies 7 - Gastrointestinal Comment: PUD - Genitourinary (Female) Genitourinary: Denies dysuria, Denies hematuria - Menstruation Menstruation: Reports post hysterectomy - Musculoskeletal Comment: bilateral hips replacement, and left shoulder replaced - Integumentary Integumentary: Denies pruritus, Denies rash - Neurological Neurological: Denies numbness, Denies weakness - Psychiatric Psychiatric: Denies anxiety, Denies depression - Endocrine Endocrine: Denies fatigue, Denies weight change - Hematologic/Lymphatic Comment: raynauds - Allergic/Immunologic Comment: none Past Medical History Past Medical History: Atrial Fibrillation, Coronary Artery Disease (CAD), Cancer, Chest Pain / Angina, GERD/Reflux, Hypertension, Myocardial Infarction ([place]), Osteoarthritis (OA), Pneumonia, Seizure Disorder Additional Past Medical History / Comment(s): R breast cancer with lumpectomy/radiation, CHB with pacer, cerebral aneurysm, arthritis multiple joints and in neck/back, sciatica right sided, balance issues at times, fall with concussion, multiple bronchitis, iron deficiency anemia, UTIs, stomach ulcer in past.constipation,lt eye cataract Last Myocardial Infarction Date:: 2014 History of Any Multi-Drug Resistant Organisms: None Reported Past Surgical History: Appendectomy, Back Surgery, Breast Surgery, Heart Catheterization With Stent, Hysterectomy, Joint Replacement, Pacemaker Additional Past Surgical History / Comment(s): right breast lumpectomy, cervical surgery, lumbar surgery, left shoulder replaced, right thumb surgery, CARDIAC STENTS TO RCA AND CIRC, EVY HIP REPLACMENTS (DONE IN [place]), rt CATARACT, EGD/colonoscopy, capsule endoscopy, hemorrhoidectomy. Past Anesthesia/Blood Transfusion Reactions: No Reported Reaction Date of Last Stent Placement:: 03/10/15 Type of Cardiac Device: Biventricular Pacemaker Device Placement Date:: originally placed in 2005 and d/t L total shoulder surgery, moved 06/18/11 Past Psychological History: No Psychological Hx Reported Additional Psychological History / Comment(s): Pt resides alone. She receives [facility] home care, owns a cane and a walker when needed. Pt drives. Smoking Status: Former smoker Past Alcohol Use History: Daily Additional Past Alcohol Use History / Comment(s): Pt started smoking in 1962 and quit in 1975. Patient has 1 drink before bed daily to help with sleeping Past Drug Use History: None Reported - Past Family History Father Additional Family Medical History / Comment(s): kidney problem, heart attack Mother Family Medical History: Cancer Additional Family Medical History / Comment(s): colon ca, breast ca, MOM LIVED TO BE 98 YEARS OLD Sister(s) Family Medical History: Cancer Additional Family Medical History / Comment(s): colon ca, breast ca Medications and Allergies Home Medications Medication Instructions Recorded Confirmed Type Anastrozole [Arimidex] 1 mg PO DAILY 03/07/15 06/03/18 History Diltiazem HCl [Cardizem CD] 120 mg PO DAILY 01/05/16 06/03/18 History Hydrochlorothiazide [Hydrodiuril] 12.5 mg PO DAILY 01/05/16 06/03/18 History Cholecalciferol [Vitamin D3 (25 1,000 unit PO DAILY 01/20/16 06/03/18 History Mcg = 1000 Iu)] Nitroglycerin Sl Tabs [Nitrostat] 0.4 mg SUBLINGUAL Q5M PRN 01/20/16 06/03/18 History Fluticasone/Vilanterol [Breo 1 puff INHALATION RT-DAILY 09/04/17 06/03/18 History Ellipta 200-25 Mcg INH] Irbesartan [Avapro] 150 mg PO DAILY 09/04/17 06/03/18 History Metoprolol Tartrate [Lopressor] 25 mg PO BID 09/04/17 06/03/18 History Isosorbide Mononitrate ER [Imdur] 30 mg PO DAILY tab.er.24h 09/08/17 06/03/18 Rx Nystatin 100,000Unit/gm Cream 1 applic TOPICAL BID PRN 01/28/18 06/03/18 History [Mycostatin Cream] diphenhydrAMINE HCL [Benadryl] 25 mg PO HS PRN 01/28/18 06/03/18 History Pantoprazole [Protonix] 40 mg PO AC-BID #60 tablet. 02/11/18 06/03/18 Rx Sucralfate [Carafate] 1 gm PO AC-TID #90 tab 02/11/18 06/03/18 Rx Ondansetron [Zofran] 4 mg PO Q6H PRN 03/25/18 06/03/18 History Aspirin EC [Ecotrin Low Dose] 81 mg PO DAILY 06/03/18 06/03/18 History Celecoxib [CeleBREX] 100 mg PO DAILY PRN 06/03/18 06/03/18 History Ferrous Sulfate [Feosol] 325 mg PO DAILY 06/03/18 06/03/18 History HYDROcodone/APAP 5-325MG [[place] 1 tab PO DAILY PRN 06/03/18 06/03/18 History 5-325] Meclizine [Antivert] 25 mg PO TID #20 tab 06/03/18 Rx Allergies Allergy/AdvReac Type Severity Reaction Status Date / Time adhesive Allergy Unknown Verified 04/10/19 15:10 cephalexin monohydrate Allergy Unknown Verified 04/10/19 15:10 [From Keflex] ciprofloxacin [From Cipro] Allergy Unknown Verified 04/10/19 15:10 ciprofloxacin HCl Allergy Unknown Verified 04/10/19 15:10 [From Cipro] Penicillins Allergy Rash/Hives Verified 04/10/19 15:10 Sulfa (Sulfonamide Allergy Rash/Hives Verified 04/10/19 15:10 Antibiotics) Surgical - Exam Vital Signs Temp Pulse Resp BP Pulse Ox 98.4 F 64 18 135/76 96 04/10/19 15:04 04/10/19 15:04 04/10/19 15:04 04/10/19 15:04 04/10/19 15:04 BMI 25.9 - General well developed, well nourished, no distress - Eyes normal ocular movement - ENT no hearing loss, no congestion - Neck no masses, trachea midline - Respiratory normal respiratory effort, clear to auscultation - Cardiovascular Rhythm: regular Heart Sounds: normal: S1, S2 - Abdomen Abdomen: soft, non tender, no guarding, no rigid, no rebound - Integumentary normal turgor - Neurologic no disoriented, no combative - Musculoskeletal use a walker - Psychiatric oriented to time, oriented to person, oriented to place, speech is normal, memory intact breast exam: Right breast: Multi-positional exam scarring noted with some drying of the nipple periareolar complex into the scarring and some distortion of the breast related to prior lumpectomy and radiation therapy fullness at the site of the scar extending up into the upper outer quadrant area of the breast Right axilla: No adenopathy of concern Left breast: Multi-positional exam no dominant masses or nodules of concern Left axilla: No adenopathy of concern Results February 2019 bilateral mammogram after which it was recommended ultrasound be performed of the right breast February 2019 ultrasound of the right breast revealed 1.3 x 1.5 cm oval hypoechoic lesion in the posterior nipple questionable area versus artifact and some dystrophic calcifications were also noted as well as thickening of the skin ultrasound of the right breast in 3 months recommended Assessment and Plan Assessment: Impression: 1. Personal history of right breast cancer status post lumpectomy radiation and anti-hormonal therapy 2. Fibrocystic breast changes 3. Abnormal mammogram and ultrasound approximately February 2019 4. Coronary artery disease with stents, pacemaker, hypertension 5. Asthma 6. Degenerative joint disease status post bilateral hip replacement and left shoulder replacement Plan: 1. Right breast ultrasound 2. Right breast core biopsy 3. Medical management of medical conditions 4. Obtain pathology report from right breast cancer CC: [place]
== END ==
LOC: WWCWWP 14:46
PROVIDERS: ATTEND Surgery
DX: Z53.9 Procedure and treatment not carried out, unspecified reason (principal)

== ENCOUNTER → 2019-05-08 | Outpatient (CLI) | payer MEDICARE, OTHER ==
[2019-05-08 10:13] VITALS: BP 165/72; PULSE 62; RESP 18; TEMP 97.6; BMI 26.5
--- NOTE | 2019-05-08 10:22 | P.PCN ---
Date of Procedure: 05/08/19 Preoperative Diagnosis: nodularity right breast at prior lumpectomy site Postoperative Diagnosis: same Procedure(s) Performed: core biopsy of the right breast Anesthesia: local Surgeon: Tish Matthews Pathology: other (breast tissue) Disposition: same day Indications for Procedure: nodularity of the right breast Operative Findings: Dense tissue right breast 8 o'clock position periareolar region Description of Procedure: The area of increased nodularity in the right breast was prepped using Betadine. One percent lidocaine was used to anesthetize the area of concern. Approximately 5 mL were used. A #15 blade was used to make a small incision in the skin. An 18-gauge spring-loaded Bard core biopsy needle was inserted into the area of concern. Approximately 4 samples were obtained. These were sent to pathology. The skin incision was closed using 4-0 nylon suture. The patient tolerated the procedure in stable condition. We'll follow next week for results of the core biopsy.
== END ==
LOC: WWCWWP 09:48
PROVIDERS: ATTEND Surgery
DX: N63.10 Unspecified lump in the right breast, unspecified quadrant (principal)
CPT/HCPCS: 88305

== ENCOUNTER → 2019-05-14 | Outpatient (CLI) | payer MEDICARE, OTHER ==
[2019-05-14 15:22] VITALS: BP 135/79; PULSE 74; RESP 20; TEMP 98; BMI 26.1
--- NOTE | 2019-05-14 16:02 | P.PN ---
Subjective Progress Note Date: 05/14/19 Principal diagnosis: personal history of Right breast cancer, right breast mass Kelli is an 83-year-old white female who presents for breast evaluation. Patient did have a right breast lumpectomy and sentinel node biopsy for invasive ductal carcinoma approximately 10 years ago. She is presently on Arimidex. She did have radiation therapy but no chemotherapy. This surgery was done at [facility]. For several months she has felt some fullness, and jabbing discomfort in the periareolar region in the right breast. In the February 2019 a bilateral mammogram was done after which it was recommended that she have an ultrasound of the right breast. The ultrasound revealed some skin thickening as well as a 1.3-1.5 cm lesion at the posterior nipple questionable area versus artifact. The patient was recommended to have a repeat ultrasound of the right breast in 3 months time. The patient herself has had some clear nipple discharge on the right but nothing on the left. A biopsy which was done in the office revealed only fibrocystic breast changes. The patient has no specific complaints related to the biopsy. The patient states that the area of the breast continues to be uncomfortable and may have increased in size. Family History: sister: from breast cancer, colon cancer mother: from breast cancer, colon cancer brother: throat cancer Hormonal History: menarche: 15 breast fed: no, first at 20 menopause: hysterectomy took part of ovaries, not for cancer BCP: 1 year hormones: none Surgical History: bilateral hips shoulder replacement lumpectomy and node biopsy in the right breast Medical History: 1. sciatica uses walker 2. HTN Social History: smoke: none stopped 40 years ago alcohol: two a night drugs: none - Constitutional Constitutional: Denies chills, Denies fever - EENT Comment: cataract surgery Eyes: denies blurred vision, denies pain Ears: bilateral: decreased hearing, deny: tinnitus Ears, nose, mouth and throat: Reports headache, Denies sore throat - Breasts Breasts: bilateral: as per HPI - Cardiovascular Comment: cardiac stints, pacemaker Cardiovascular: Reports high blood pressure - Respiratory Comment: former smoker Respiratory: Denies cough, Denies 7 - Gastrointestinal Comment: PUD - Genitourinary (Female) Genitourinary: Denies dysuria, Denies hematuria - Menstruation Menstruation: Reports post hysterectomy - Musculoskeletal Comment: bilateral hips replacement, and left shoulder replaced - Integumentary Integumentary: Denies pruritus, Denies rash - Neurological Neurological: Denies numbness, Denies weakness - Psychiatric Psychiatric: Denies anxiety, Denies depression - Endocrine Endocrine: Denies fatigue, Denies weight change - Hematologic/Lymphatic Comment: raynauds - Allergic/Immunologic Comment: none Past Medical History Past Medical History: Atrial Fibrillation, Coronary Artery Disease (CAD), Cancer, Chest Pain / Angina, GERD/Reflux, Hypertension, Myocardial Infarction ([place]), Osteoarthritis (OA), Pneumonia, Seizure Disorder Additional Past Medical History / Comment(s): R breast cancer with lumpecto my/radiation, CHB with pacer, cerebral aneurysm, arthritis multiple joints and in neck/back, sciatica right sided, balance issues at times, fall with concussion, multiple bronchitis, iron deficiency anemia, UTIs, stomach ulcer in past.constipation,lt eye cataract Last Myocardial Infarction Date:: 2014 History of Any Multi-Drug Resistant Organisms: None Reported Past Surgical History: Appendectomy, Back Surgery, Breast Surgery, Heart Catheterization With Stent, Hysterectomy, Joint Replacement, Pacemaker Additional Past Surgical History / Comment(s): right breast lumpectomy, cervical surgery, lumbar surgery, left shoulder replaced, right thumb surgery, CARDIAC STENTS TO RCA AND CIRC, EVY HIP REPLACMENTS (DONE IN [place]), rt CATARACT, EGD/colonoscopy, capsule endoscopy, hemorrhoidectomy. Past Anesthesia/Blood Transfusion Reactions: No Reported Reaction Date of Last Stent Placement:: 03/10/15 Type of Cardiac Device: Biventricular Pacemaker Device Placement Date:: originally placed in 2005 and d/t L total shoulder surgery, moved 06/18/11 Past Psychological History: No Psychological Hx Reported Additional Psychological History / Comment(s): Pt resides alone. She receives [facility] home care, owns a cane and a walker when needed. Pt drives. Smoking Status: Former smoker Past Alcohol Use History: Daily Additional Past Alcohol Use History / Comment(s): Pt started smoking in 1962 and quit in 1975. Patient has 1 drink before bed daily to help with sleeping Past Drug Use History: None Reported Objective - Vital Signs Vital signs: Vital Signs Temp 98.0 F 05/14/19 15:17 Pulse 74 05/14/19 15:17 Resp 20 05/14/19 15:17 BP 135/79 05/14/19 15:17 Pulse Ox 98 05/14/19 15:17 Intake & Output 05/13/19 05/14/19 05/14/19 18:59 06:59 18:59 Weight 65.771 kg - Exam BMI 26.1 - Constitutional General appearance: Present: average body habitus - EENT Eyes: Present: EOMI ENT: Present: hearing grossly normal - Neck Neck: Present: normal ROM - Respiratory Respiratory: bilateral: CTA - Cardiovascular Rhythm: regular Heart sounds: normal: S1, S2 - Integumentary Integumentary: Present: normal turgor - Musculoskeletal Musculoskeletal: Present: gait normal - Psychiatric Psychiatric: Present: A&O x's 3, appropriate affect, intact judgment & insight - Additional findings Additional findings: Right breast: The area of the right breast continues to have fullness and tenderness throughout the right breast the greatest area of discomfort is right near the area of the biopsy, at the site of the biopsies no evidence of infection [address] and these are to be removed today Right breast is not fixed to the chest wall although the breast itself is firm Assessment and Plan Assessment: Impression: 1. Personal history of right breast cancer status post lumpectomy radiation and anti-hormonal therapy 2. Fibrocystic breast changes 3. Abnormal mammogram and ultrasound February 2019 4. Coronary artery disease with stents, pacemaker 5. Hypertension 6. Asthma 7. Degenerative joint disease status post bilateral hip replacement and left shoulder replacement 2. Core biopsy of palpable lesion reveals only fibrocystic change Case was reviewed with Dr. Dangelo and we have recommended ultrasound-guided core biopsy, there is some question that the lesion is so dense that the core biopsy needle bounced off of it and this really only Fibrocystic breast tissue. I have discussed with the patient and her daughter if core biopsy via ultrasound is li kewise fibrocystic change that the only way to make the diagnosis may be open biopsy/mastectomy in the operating room Plan: 1. Ultrasound-guided core biopsy of the right breast 2. Computed tomography scan of the chest wall and breast to assure that the breast is not infiltrating into the chest wall 3. Follow-up after ultrasound-guided core biopsy Cc:
== END | disposition home or self-care (01) ==
LOC: WWCWWP 14:57
PROVIDERS: ATTEND Surgery
DX: Z53.9 Procedure and treatment not carried out, unspecified reason (principal)

== ENCOUNTER → 2019-05-15 | Day surgery (SDC) | payer MEDICARE, OTHER ==
[2019-05-15 08:40] VITALS: TEMP 98; BMI 25.7
--- NOTE | 2019-05-15 11:09 | USB ---
EXAMINATION TYPE: US biopsy breast VAD RT, MG diagnostic mammo RT wo CAD DATE OF EXAM: 05/15/2019 CLINICAL HISTORY: N63 Breast Mass. History of right breast carcinoma. TECHNIQUE: Ultrasound guided core biopsy of right breast. COMPARISON: Right breast ultrasound dated 02/11/2019 and right breast diagnostic mammogram of the same date FINDINGS: The procedure of ultrasound guided core biopsy was explained to the patient. Benefits, alternatives, and risks were discussed. An informed consent was then obtained. A procedural timeout was performed. The patient was placed in supine positioning for imaging and for the procedure. The overlying skin was prepped and draped in usual sterile fashion. 10 cc of 1% lidocaine was used as anesthetic into the skin and subcutaneous tissue and 10 cc of lidocaine with epinephrine was utilized to anesthetize the subcutaneous tissues up to the shadowing scar at the 7:00 position, biopsy was performed for interval growth clinically. Under ultrasound guidance, a 12-gauge vacuum assisted biopsy gun device was used to obtain 8 core samples. Following this, a coil-shaped biopsy marker was left at the periphery in the most suspicious region (biopsy was performed with 3 different areas within the 7:00 right breast mass. Biopsy marker placement is appropriate on post biopsy mammogram. The patient tolerated the procedure well without any immediate complication. The patient was kept in the radiology department for short stay after the procedure and then discharged home in stable condition. IMPRESSION: Successful, uncomplicated ultrasound guided core biopsy of area of the right breast at the 7:00 position in the patient's known scar with clinical interval growth, full pathology results to follow. Pathology Results: Benign RIGHT BREAST, 7:00, ULTRASOUND GUIDED CORE BIOPSY: Nodular scar with fat necrosis, calcifications and mild chronic inflammation. Negative for malignancy. Recommendation Surgical consult of the right breast. Second look ultrasound is recommended for slightly hypermetabolic focus at anterior depth at 12 o'clock (fustion 87/263) on the right. MTDD
[2019-05-15 12:14] VITALS: BP 139/75; PULSE 80; RESP 18
== END ==
LOC: RADUSWWP 08:00
PROVIDERS: ATTEND Surgery
DX: N64.1 Fat necrosis of breast (principal); N61.0 Mastitis without abscess; N64.89 Other specified disorders of breast; Z85.3 Personal history of malignant neoplasm of breast
CPT/HCPCS: 88305; 77065; 19083; A4648; J2001

== ENCOUNTER → 2019-05-16 | Outpatient (CLI) | payer MEDICARE, OTHER ==
--- NOTE | 2019-05-18 07:43 | PE ---
EXAMINATION TYPE: PET CT fusion skull to thigh DATE OF EXAM: 05/16/2019 COMPARISON: NONE HISTORY: Suspected breast cancer recurrence originally diagnosed 2009 TECHNIQUE: Following the intravenous administration of 11.0 mCi of F-18 FDG, whole body images are p erformed from the skull base to the midthigh. Images are reviewed on the computer in the coronal, ax ial, and sagittal planes. Reconstructed rotating images are created on independent workstation and r eviewed on the computer. A noncontrast CT is performed in conjunction with the PET scan. SCAN: Subsequent Scan CTA chest January 28, 2018. FINDINGS: SKULL BASE AND NECK: No new areas of abnormal hypermetabolic uptake. CHEST, MEDIASTINUM, AND HILAR REGION: Right breast scar evident axial image 96 without hypermetabolic uptake. No significant change from CT January 28, 2018. No areas of abnormal hypermetabolic uptake in either breast or thorax. Medial left breast pacemaker device redemonstrated. Stable 9 x 6 mm groundglass nodule axial image 84 without hypermetabolic uptak e. ABDOMEN AND PELVIS: No areas of suspicious hypermetabolic uptake. OSSEOUS STRUCTURES: No areas of suspicious hypermetabolic uptake. OTHER CT: Moderate calcified plaque bilateral carotid bulb level. Metallic artifact from left shoulder surgery causes streak artifact limiting evaluation of upper thor acic structures. Severe glenohumeral joint arthropathy. Multi lead pacemaker/AICD. Low dense thickening to both adrenal glands consistent with benign lipid rich hyperplasia. Metallic h ardware from Bilateral hip arthroplasty causes streak artifact limiting evaluation of pelvic structur es. Sigmoid colonic diverticulosis. Uterus suspect is surgically absent or markedly atrophic. Multile yoli spurring and disc space narrowing in the spine. IMPRESSION: There is no suspicious hypermetabolic uptake to suggest local or metastatic malignant rec urrence.
== END ==
LOC: RADPETMAIN 08:21
PROVIDERS: ATTEND Surgery
DX: Z85.3 Personal history of malignant neoplasm of breast (principal)
CPT/HCPCS: 78815; A9552

== ENCOUNTER → 2019-05-22 | Outpatient (CLI) | payer MEDICARE, OTHER ==
[2019-05-22 10:06] VITALS: BP 117/68; PULSE 67; RESP 16; TEMP 97.9; BMI 25.7
--- NOTE | 2019-05-22 10:25 | P.PN ---
Subjective Progress Note Date: 05/22/19 Kelli is an 83-year-old white female who underwent a right breast lumpectomy and sentinel node biopsy for invasive ductal carcinoma proximally 10 years ago. She is presently on Arimidex. She did have radiation therapy but no chemotherapy. Her surgery was done at [facility]. The patient for the past several months has felt some fullness and tapping discomfort in the periareolar region in the right breast. A bilateral mammogram in February 2019 was done after which was recommended she have an ultrasound. Ultrasound revealed some skin thickening as well as a 1.3 x 1.5 cm lesion at the posterior nipple of questionable origin. The patient has subsequently undergone an ultrasound- guided core biopsy of the right breast as well as a core biopsy of palpable area. Core biopsy of palpable area was consistent with fibrocystic changes. Core biopsy of ultrasound area was consistent with scar and fat necrosis. The patient also had a PET scan performed and revealed the presence scan with radiology, Dr. Álvarez reveals an area of increased uptake in the region of the scar. Secondary to the fact that she cannot identify this by ultrasound and we cannot feel this on exam we have discussed the possibility of CT guided biopsy of the area of increased uptake on PET scan. Family History: sister: from breast cancer, colon cancer mother: from breast cancer, colon cancer brother: throat cancer Hormonal History: menarche: 15 breast fed: no, first at 20 menopause: hysterectomy took part of ovaries, not for cancer BCP: 1 year hormones: none Surgical History: bilateral hips shoulder replacement lumpectomy and node biopsy in the right breast Medical History: 1. sciatica uses walker 2. HTN Social History: smoke: none stopped 40 years ago alcohol: two a night drugs: none - Constitutional Constitutional: Denies chills, Denies fever - EENT Comment: cataract surgery Eyes: denies blurred vision, denies pain Ears: bilateral: decreased hearing, deny: tinnitus Ears, nose, mouth and throat: Reports headache, Denies sore throat - Breasts Breasts: bilateral: as per HPI - Cardiovascular Comment: cardiac stints, pacemaker Cardiovascular: Reports high blood pressure - Respiratory Comment: former smoker Respiratory: Denies cough, Denies 7 - Gastrointestinal Comment: PUD - Genitourinary (Female) Genitourinary: Denies dysuria, Denies hematuria - Menstruation Menstruation: Reports post hysterectomy - Musculoskeletal Comment: bilateral hips replacement, and left shoulder replaced - Integumentary Integumentary: Denies pruritus, Denies rash - Neurological Neurological: Denies numbness, Denies weakness - Psychiatric Psychiatric: Denies anxiety, Denies depression - Endocrine Endocrine: Denies fatigue, Denies weight change - Hematologic/Lymphatic Comment: raynauds - Allergic/Immunologic Comment: none Past Medical History Past Medical History: Atrial Fibrillation, Coronary Artery Disease (CAD), Cancer, Chest Pain / Angina, GERD/Reflux, Hypertension, Myocardial Infarction ([place]), Osteoarthritis (OA), Pneumonia, Seizure Disorder Additional Past Medical History / Comment(s): R breast cancer with lumpectomy/radiation, CHB with pacer, cerebral aneurysm, arthritis multiple joints and in neck/back, sciatica right sided, balance issues at times, fall with concussion, multiple bronchitis, iron deficiency anemia, UTIs, stomach ulcer in past.constipation,lt eye cataract Last Myocardial Infarction Date:: 2014 History of Any Multi-Drug Resistant Organisms: None Reported Past Surgical History: Appendectomy, Back Surgery, Breast Surgery, Heart Catheterization With Stent, Hysterectomy, Joint Replacement, Pacemaker Additional Past Surgical History / Comment(s): right breast lumpectomy, cervical surgery, lumbar surgery, left shoulder replaced, right thumb surgery, CARDIAC STENTS TO RCA AND CIRC, EVY HIP REPLACMENTS (DONE IN [place]), rt CATARACT, EGD/colonoscopy, capsule endoscopy, hemorrhoidectomy. Past Anesthesia/Blood Transfusion Reactions: No Reported Reaction Date of Last Stent Placement:: 03/10/15 Type of Cardiac Device: Biventricular Pacemaker Device Placement Date:: originally placed in 2005 and d/t L total shoulder surgery, moved 06/18/11 Past Psychological History: No Psychological Hx Reported Additional Psychological History / Comment(s): Pt resides alone. She receives [facility] home care, owns a cane and a walker when needed. Pt drives. Smoking Status: Former smoker Past Alcohol Use History: Daily Additional Past Alcohol Use History / Comment(s): Pt started smoking in 1962 and quit in 1975. Patient has 1 drink before bed daily to help with sleeping Past Drug Use History: None Reported Objective - Vital Signs Vital signs: Vital Signs Temp 97.9 F 05/22/19 10:00 Pulse 67 05/22/19 10:00 Resp 16 05/22/19 10:00 BP 117/68 05/22/19 10:00 Pulse Ox 95 05/22/19 10:00 Intake & Output 05/21/19 05/22/19 05/22/19 18:59 06:59 18:59 Weight 64.864 kg - Exam BMI 25.7 - Constitutional General appearance: Present: average body habitus - EENT Eyes: Present: EOMI ENT: Present: hearing grossly normal - Respiratory Respiratory: bilateral: CTA - Cardiovascular Rhythm: regular Heart sounds: normal: S1, S2 - Integumentary Integumentary: Present: normal turgor - Psychiatric Psychiatric: Present: A&O x's 3, appropriate affect - Additional findings Additional findings: Right breast: Biopsy site mild ecchymosis, patient continues to have very firm area at prior lumpectomy site and scarring Assessment and Plan Assessment: Impression: 1. Personal history of right breast cancer status post lumpectomy radiation and anti-hormonal therapy 2. Fibrocystic breast changes 3. Abnormal mammogram and ultrasound February 2019 4. Coronary artery disease with stents, pacemaker 5. Hypertension 6. Asthma 7. Degenerative joint disease status post bilateral hip replacement and left shoulder replacement 8. Biopsy 2 of the right breast both times results were benign 9. Abnormal PET scan Plan: 1. PET/CT scan guided core biopsy of area of concern in the right breast 2. Follow-up after biopsy 3. Consider mastectomy if biopsy is negative as patient has change in the breast poor cosmetic result pain in the breast related to her prior lumpectomy and concern about recurrence CC: Dr. Izquierdo
--- NOTE | 2019-05-22 11:14 | P.OP ---
Date of Procedure: 05/22/19 Preoperative Diagnosis: Skin lesion of concern right chest wall Postoperative Diagnosis: same Procedure(s) Performed: Excision skin lesion Surgeon: Tish Matthews Pathology: other (skin lesion) Condition: stable Disposition: same day Indications for Procedure: Skin lesion changed superior breast/chest wall Operative Findings: Skin lesion Description of Procedure: The area of concern in the right breast/chest wall was prepped using Betadine. 1% lidocaine was used to anesthetize the area of concern. Wide excision was performed. The length of the incision was approximately 2 cm. The skin was closed using nylon suture. The specimen was sent for pathology. The patient tolerated procedure in stable condition. cc: marcus
== END ==
LOC: WWCWWP 09:47
PROVIDERS: ATTEND Surgery
DX: M89.9 Disorder of bone, unspecified (principal)
CPT/HCPCS: 88305

== ENCOUNTER → 2019-06-12 | Day surgery (SDC) | payer MEDICARE, OTHER ==
[2019-06-12 08:32] VITALS: TEMP 97.9
[2019-06-12 10:59] VITALS: RESP 14
[2019-06-12 11:00] VITALS: BP 133/79; PULSE 72
--- NOTE | 2019-06-12 11:06 | MM ---
Reason for exam: additional evaluation requested from abnormal screening. Last mammogram was performed 1 month ago. History: Patient is postmenopausal and has history of breast cancer at age 73. Family history of breast cancer in mother at age 90 and breast cancer in sister. Benign US biopsy breast VAD RT of the right breast, May 15, 2019. Lumpectomy of the right breast, 2008. Benign excisional biopsy of both breasts, 1959. Benign excisional biopsy of the right breast, 1949. MG Diagnostic Mammo RT Wo CAD CC and LM view(s) were taken of the right breast. Prior study comparison: May 15, 2019, right breast MG diagnostic mammo RT wo CAD. February 11, 2019, bilateral MG 3d diag mammo w/cad EVY. ASSESSMENT: Post procedure mammogram for marker placement RECOMMENDATION: Ultrasound of the right breast in 6 months. PENDING PATHOLOGY RESULTS OF CT CORE BIOPSY.
--- NOTE | 2019-06-12 13:50 | CT ---
EXAMINATION TYPE: CT biopsy subcut tissue DATE OF EXAM: 06/12/2019 CLINICAL HISTORY: HX of breast CA. FDG avid subcentimeter right breast mass near the 12:00 position w ith no sonographic correlate. The patient could not undergo MRI. TECHNIQUE: Ultrasound guided core biopsy of right breast. COMPARISON: PET/CT dated 05/16/2019 FINDINGS: The procedure of CT guided core biopsy was explained to the patient and the patient's famil y member. Benefits, alternatives, and risks were discussed. An informed consent was then obtained. Preprocedural timeout was performed. The patient was placed in supine positioning for imaging and for the procedure. The overlying skin wa s prepped and draped in usual sterile fashion. 12 cc of 1% lidocaine was used as anesthetic into the skin and subcutaneous tissue up to area of concern in the right breast (subcentimeter mass demonstrat ing increased avidity on the prior PET/CT in this patient with a history of breast cancer). Under CT guidance, a 14-gauge biopsy gun device was used to obtain 3 core samples. Following this, a biopsy clip was left in mass. The patient tolerated the procedure well without any immediate complication. The patient was kept in the radiology department for short stay after the procedure and then discharged home in stable condi tion. IMPRESSION: Successful, uncomplicated CT guided core biopsy of a subcentimeter mass in the right inge st near the 12:00 position (FDG avid), full pathology results to follow.
== END | disposition home or self-care (01) ==
LOC: RADPROMAIN 08:02
PROVIDERS: ATTEND Surgery
DX: N64.1 Fat necrosis of breast (principal); N61.0 Mastitis without abscess; Z85.3 Personal history of malignant neoplasm of breast; Z78.0 Asymptomatic menopausal state; Z80.3 Family history of malignant neoplasm of breast
CPT/HCPCS: 19499; 88305; 88342; 88341; 77065; 77012; A4648; 76942

== ENCOUNTER → 2019-06-19 | Outpatient (CLI) | payer MEDICARE, OTHER ==
[2019-06-19 17:03] VITALS: BP 110/72; PULSE 61; RESP 20; TEMP 98; BMI 25.7
--- NOTE | 2019-06-19 17:20 | P.PN ---
Subjective Progress Note Date: 06/19/19 Principal diagnosis: CT guided needle core Kelli is an 83-year-old white female who presented in May for breast evaluation. She did have a right breast lumpectomy and sentinel node biopsy for invasive ductal carcinoma approximately 10 years ago. She is presently on a limited ex. She did have radiation therapy but no chemotherapy. Her surgery was done at [facility]. The patient had a bilateral mammogram in February 2019 which recommended an ultrasound be performed. On ultrasound some skin thickening as well as a 1.5 cm lesion at the posterior nipple was identified. Patient was recommended to have a repeat ultrasound of the breast in 3 months. The patient herself noticed some clear nipple discharge on the right but nothing on the left. A biopsy was done in the office which revealed only fibrocystic breast changes. Core biopsy was performed on which revealed fibrocystic changes. PET scan was performed on . Results of this revealed no suspicious hypermetabolic uptake to suggest local or metastatic malignant recurrence. She then had a CT-guided needle core biopsy on . This revealed scar within necrosis and chronic inflammation negative for malignancy. The patient had a skin lesion removed from her right chest wall which was positive for squamous cell carcinoma with negative margins. At this time the patient has no complaints related to the biopsies. She presents for results of the CAT scan guided needle core biopsy. Additionally results of the skin lesion which was removed from her right chest. I have discussed with the patient and her daughter the results of the skin biopsy and recommended dermatologic evaluation. I've also discussed results of the CT- guided needle biopsy and at this time the patient is going to follow conservatively. Physical exam: Well-healed scar from excision of skin lesion right chest Impression: 1. Right breast status post lumpectomy and radiation therapy, 4 biopsies negative for cancer 2. Squamous cell carcinoma completely removed right chest wall Plan: 1. follow up with dermatology 2. Follow-up in 3 months time, or sooner if any questions 3. Review biopsy site with radiologist if she feels this is concordant with follow patient conservatively Patient would prefer not to have surgical intervention at this time if possible. I discussed with the patient and her daughter that I cannot guarantee there is not a malignancy in the firm dense breast tissue on the right but at this time all biopsies have been negative. Objective - Vital Signs Vital signs: Vital Signs Temp 98.0 F 06/19/19 16:59 Pulse 61 06/19/19 16:59 Resp 20 06/19/19 16:59 BP 110/72 06/19/19 16:59 Pulse Ox 96 06/19/19 16:59 Intake & Output 06/18/19 06/19/19 06/19/19 18:59 06:59 18:59 Weight 65.771 kg
== END | disposition home or self-care (01) ==
LOC: WWCWWP 16:31
PROVIDERS: ATTEND Surgery
DX: Z53.9 Procedure and treatment not carried out, unspecified reason (principal)

== ENCOUNTER 2020-07-28 17:48 | Emergency (ER) | payer MEDICARE, OTHER ==
--- NOTE | 2020-07-28 17:59 | ED ---
General Adult HPI - General Stated complaint: Fall Time Seen by Provider: 07/28/20 17:50 Source: patient, EMS, RN notes reviewed Mode of arrival: EMS Limitations: no limitations - History of Present Illness Initial comments: Patient is a pleasant 85-year-old female presenting to the emergency Department with complaints of right arm pain. Patient states she got dizzy and fell prior to arrival admitted and right arm. Patient states this is a frequent occurrence for her. Patient does not have dizziness at this time. Patient denies any head injury or loss of consciousness. No syncope. Discomfort right arm is moderate but increases with movement. Patient did receive fentanyl EMS prior to arrival with improvement of symptoms. No neck or back pain. No headache or confusion. No weakness. No abdominal pain. - Related Data Home Medications Medication Instructions Recorded Confirmed Anastrozole [Arimidex] 1 mg PO HS 03/07/15 07/28/20 Diltiazem HCl [Cardizem CD] 120 mg PO QAM 01/05/16 07/28/20 hydroCHLOROthiazide [Hydrodiuril] 12.5 mg PO QAM 01/05/16 07/28/20 Cholecalciferol [Vitamin D3 (25 1,000 unit PO QAM 01/20/16 07/28/20 Mcg = 1000 Iu)] Nitroglycerin Sl Tabs [Nitrostat] 0.4 mg SUBLINGUAL Q5M PRN 01/20/16 07/28/20 Metoprolol Tartrate [Lopressor] 25 mg PO BID 09/04/17 07/28/20 Aspirin EC [Ecotrin Low Dose] 81 mg PO DAILY 06/03/18 07/28/20 Isosorbide Mononitrate ER [Imdur] 30 mg PO QAM 05/14/19 07/28/20 Telmisartan [Micardis] 40 mg PO QAM 05/14/19 07/28/20 Atorvastatin Calcium [Lipitor] 80 mg PO HS 07/28/20 07/28/20 Allergies Allergy/AdvReac Type Severity Reaction Status Date / Time adhesive Allergy Rash/Hives Verified 07/28/20 19:33 cephalexin monohydrate Allergy Rash/Hives Verified 07/28/20 19:33 [From Keflex] ciprofloxacin [From Cipro] Allergy Rash/Hives Verified 07/28/20 19:33 ciprofloxacin HCl Allergy Rash/Hives Verified 07/28/20 19:33 [From Cipro] Penicillins Allergy Rash/Hives Verified 07/28/20 19:33 Sulfa (Sulfonamide Allergy Rash/Hives Verified 07/28/20 19:33 Antibiotics) Review of Systems ROS Statement: Those systems with pertinent positive or pertinent negative responses have been documented in the HPI. ROS Other: All systems not noted in ROS Statement are negative. Constitutional: Denies: fever Eyes: Denies: eye pain ENT: Denies: ear pain Respiratory: Denies: cough, dyspnea Cardiovascular: Denies: chest pain Endocrine: Denies: fatigue Gastrointestinal: Denies: abdominal pain Genitourinary: Denies: dysuria Musculoskeletal: Reports: as per HPI Skin: Denies: rash Neurological: Denies: headache, weakness Past Medical History Past Medical History: Atrial Fibrillation, Coronary Artery Disease (CAD), Cancer, Chest Pain / Angina, GERD/Reflux, Hypertension, Myocardial Infarction ([place]), Osteoarthritis (OA), Pneumonia, Seizure Disorder Additional Past Medical History / Comment(s): R breast cancer with lumpectomy/radiation, CHB with pacer, cerebral aneurysm, arthritis multiple joints and in neck/back, sciatica right sided, balance issues at times, fall with concussion, multiple bronchitis, iron deficiency anemia, UTIs, stomach ulcer in past.constipation,lt eye cataract Last Myocardial Infarction Date:: 2014 History of Any Multi-Drug Resistant Organisms: None Reported Past Surgical History: Appendectomy, Back Surgery, Breast Surgery, Heart Catheterization With Stent, Hysterectomy, Joint Replacement, Pacemaker Additional Past Surgical History / Comment(s): Right breast lumpectomy with radiation 2008, cervical surgery, lumbar surgery, left shoulder replaced, right thumb surgery, CARDIAC STENTS TO RCA AND CIRC, EVY HIP REPLACMENTS (DONE IN [place]), rt CATARACT, EGD/colonoscopy, capsule endoscopy, hemorrhoidectomy. Past Anesthesia/Blood Transfusion Reactions: No Reported Reaction Date of Last Stent Placement:: 03/10/15 Type of Cardiac Device: Biventricular Pacemaker Device Placement Date:: originally placed in 2005 and d/t L total shoulder surgery, moved 06/18/11 Past Psychological History: No Psychological Hx Reported Additional Psychological History / Comment(s): Pt resides alone. She receives [facility], owns a cane and a walker when needed. Pt drives. Past Alcohol Use History: Daily Additional Past Alcohol Use History / Comment(s): Pt started smoking in 1962 and quit in 1975. Patient has 1-2 drink before bed daily to help with sleeping Past Drug Use History: None Reported - Past Family History Father Additional Family Medical History / Comment(s): kidney problem, heart attack Mother Family Medical History: Cancer Additional Family Medical History / Comment(s): colon ca, breast ca, MOM LIVED TO BE 98 YEARS OLD Sister(s) Family Medical History: Cancer Additional Family Medical History / Comment(s): colon ca, breast ca General Exam Limitations: no limitations General appearance: alert, in no apparent distress Head exam: Present: atraumatic, normocephalic Eye exam: Present: normal appearance Neck exam: Present: normal inspection. Absent: tenderness Respiratory exam: Present: normal lung sounds bilaterally Cardiovascular Exam: Present: regular rate, normal rhythm Expanded Peripheral pulses: 2+: Radial (R) GI/Abdominal exam: Present: soft. Absent: tenderness Extremities exam: Present: tenderness (Tenderness right wrist moderate, right forearm mild. Tenderness right proximal humerus and shoulder, mild to moderate. ), other (Decreased range of motion right arm secondary to pain. Distally the extremity is neurovascular intact.) Back exam: Present: normal inspection. Absent: vertebral tenderness Neurological exam: Present: alert. Absent: motor sensory deficit Psychiatric exam: Present: normal affect, normal mood Skin exam: Present: normal color Course Vital Signs 07/28/20 17:50 Temperature 101.4 F H Pulse Rate 79 Respiratory 20 Rate Blood Pressure 145/93 O2 Sat by Pulse 97 Oximetry Procedures - Orthopedic Splinting/Casting Injury #1 Side: right Upper Extremity Injury Location: short arm Upper Extremity Immobilizer: volar splint Additional Comments: Examined postplacement with good alignment and neurovascularly intact. Medical Decision Making - Medical Decision Making Patient reevaluated and updated. - Radiology Data Radiology results: image reviewed (X-ray right humerus and right shoulder does not reveal acute process. X-ray right forearm shows slightly impacted fractured distal radius and ulnar styloid fracture) Disposition Clinical Impression: Closed fracture distal radius and ulna Disposition: HOME SELF-CARE Condition: Stable Instructions (If sedation given, give patient instructions): Wrist Fracture in Adults (ED) Additional Instructions: Please follow-up with orthopedics and primary care physician in the next day or 2 for recheck. Ice to affected area. Return for increased pain, swelling, hand problems, worsening symptoms or other concerns. Is patient prescribed a controlled substance at d/c from ED?: No Referrals: Dayanna Izquierdo MD [Primary Care Provider] - 1-2 days Oswaldo Mejia MD [STAFF PHYSICIAN] - 1-2 days Time of Disposition: 19:37
[2020-07-28 18:01] VITALS: TEMP 101.4
[2020-07-28] MEDS ORDERED: MORPHINE SULFATE 4 MG/ML SYRINGE IM STA (18:12)
[2020-07-28] MEDS ORDERED: ONDANSETRON ODT 4 MG TAB PO STA (18:22)
--- NOTE | 2020-07-28 19:21 | XR ---
EXAMINATION TYPE: XR shoulder complete RT DATE OF EXAM: 07/28/2020 COMPARISON: None HISTORY: Pain TECHNIQUE: 3 views FINDINGS: There is narrowing of the glenohumeral joint space with spur formation. I see no fracture n or dislocation. AC joint is intact. IMPRESSION: Moderate osteoarthritis of the glenohumeral joint. No fracture.
--- NOTE | 2020-07-28 19:23 | XR ---
EXAMINATION TYPE: XR humerus RT DATE OF EXAM: 07/28/2020 COMPARISON: NONE HISTORY: Pain TECHNIQUE: 2 views FINDINGS: I see no fracture nor dislocation. Elbow joint and shoulder joint are anatomic. As arthriti c change in the shoulder joint. Elbow joint is not well seen. IMPRESSION: No fracture seen.
--- NOTE | 2020-07-28 19:25 | XR ---
EXAMINATION TYPE: XR forearm RT DATE OF EXAM: 07/28/2020 COMPARISON: NONE HISTORY: Fall. Pain. TECHNIQUE: 2 views FINDINGS: There is slightly impacted transverse fracture distal radial metaphysis. There is small chi p fracture of the ulnar styloid process. There is no dislocation. Elbow joint appears anatomic. IMPRESSION: Acute slightly impacted fracture distal radius. Small ulnar styloid process chip fracture .
[2020-07-28] MEDS ORDERED: traMADol 50 MG STARTER PACK 3 TAB BTL PO STA (19:37)
[2020-07-28 20:40] VITALS: BP 141/76; PULSE 64; RESP 16
== END 2020-07-28 20:40 | disposition home or self-care (01) ==
LOC: EC 17:48
DX: S52.501A Unspecified fracture of the lower end of right radius, initial encounter for closed fracture (principal); S52.611A Displaced fracture of right ulna styloid process, initial encounter for closed fracture; I10 Essential (primary) hypertension; R42 Dizziness and giddiness; I25.2 Old myocardial infarction; M19.90 Unspecified osteoarthritis, unspecified site; Z91.048 Other nonmedicinal substance allergy status; Z79.82 Long term (current) use of aspirin; Z79.899 Other long term (current) drug therapy; Z79.811 Long term (current) use of aromatase inhibitors; Z88.0 Allergy status to penicillin; Z88.1 Allergy status to other antibiotic agents; Z88.2 Allergy status to sulfonamides; Z85.3 Personal history of malignant neoplasm of breast; Z98.42 Cataract extraction status, left eye; Z95.5 Presence of coronary angioplasty implant and graft; Z90.710 Acquired absence of both cervix and uterus; Z98.41 Cataract extraction status, right eye; W18.30XA Fall on same level, unspecified, initial encounter; Y92.009 Unspecified place in unspecified non-institutional (private) residence as the place of occurrence of the external cause; Z80.3 Family history of malignant neoplasm of breast; Z80.0 Family history of malignant neoplasm of digestive organs
CPT/HCPCS: 99284 ×2; 96372 ×2; 29125 ×2; 73030; 73060; 73090; J2270

== ENCOUNTER 2021-12-25 07:32 | Day surgery (SDC) | payer MEDICARE, OTHER ==
[2021-12-18 12:18] VITALS: BMI 24.0
[~2021-12-25 07:32] MED LIST: CLINDAMYCIN 600 MG in DEXTROSE 5% IN WATER 50 ML IVPB ONE; CLINDAMYCIN 600 MG in DEXTROSE 5% IN WATER 50 ML IVPB SCH; CLINDAMYCIN 600 MG in SODIUM CHLORIDE 0.9% 250 ML IRRIGATION PRN; CLINDAMYCIN 600 MG in SODIUM CHLORIDE 0.9% IRRIG BTL 250 ML IRRIGATION ONE; CLINDAMYCIN 900 MG in DEXTROSE 5% IN WATER 50 ML IVPB PRN
[2021-12-25] MEDS ORDERED: SODIUM CHLORIDE 0.9% 500 ML 500 ML IV ONE ×2 (08:04→11:28)
[2021-12-25 08:11] LABS: Basophils % (A) 1 %; Eosinophils # (A) 0.2 k/uL (0-0.7); Eosinophils % (A) 4 %; HCT 39.9 % (34.0-46.0); HGB 13.1 gm/dL (11.4-16.0); Lymphocytes # (A) 1.4 k/uL (1.0-4.8); Lymphocytes % (A) 25 %; MCHC 32.8 g/dL (31.0-37.0); MCV 103.5 fL (80.0-100.0); Macrocytosis Slight; Mean Platelet Volume 8.2; Monocytes # (A) 0.6 k/uL (0-1.0); Monocytes % (A) 11 %; Neutrophils % (A) 56 %; Platelet Count 232 k/uL (150-450); RBC 3.85 m/uL (3.80-5.40); RDW 14.2 % (11.5-15.5); WBC 5.4 k/uL (3.8-10.6)
[2021-12-25 08:21] LABS: Calcium 10.1 mg/dL (8.4-10.2); Potassium 3.7 mmol/L (3.5-5.1)
[2021-12-25] MEDS ORDERED: fentaNYL (PF) 50 MCG/ML 2 ML AMP ONE (08:28)
[2021-12-25] MEDS: MIDAZOLAM 2 MG/2 ML VIAL IV ONE ×2 (08:37→09:40)
[2021-12-25] MEDS: fentaNYL (PF) 50 MCG/ML 2 ML AMP IV ONE ×4 (08:37→10:10)
[2021-12-25] MEDS ORDERED: LIDOCAINE 1% INJ 10MG/ML (30 ML VIAL-PF) SQ ONE (08:40)
[2021-12-25] MEDS: LIDOCAINE 1% INJ 10MG/ML (30 ML VIAL-PF) SQ ONE ×2 (09:10→09:56)
[2021-12-25] MEDS ORDERED: PROPOFOL 10 MG/ML 20 ML VIAL IV ONE (10:35)
[2021-12-25] MEDS ORDERED: KETAMINE 10 MG/ML 20 ML VIAL ONE (10:35)
[2021-12-25] MEDS ORDERED: NITROGLYCERIN SL TABS 0.4 MG TAB SUBLINGUAL PRN (12:57)
[2021-12-25 13:46] VITALS: RESP 18
[2021-12-25] MEDS: SODIUM CHLORIDE 0.9% 1,000 ML IV SCH ×6 (13:57→14:06)
[2021-12-25] MEDS ORDERED: CLINDAMYCIN 900 MG in DEXTROSE 5% IN WATER 50 ML IVPB SCH ×2 (14:00)
[2021-12-25] MEDS: ACETAMINOPHEN TAB 325 MG TAB PO PRN ×2 (16:07→22:01)
[2021-12-25] MEDS: METOPROLOL TARTRATE 25 MG TAB PO SCH (21:00)
[2021-12-25] MEDS ORDERED: ATORVASTATIN 80 MG TAB PO SCH (21:00)
[2021-12-26] MEDS: SODIUM CHLORIDE 0.9% 1,000 ML IV SCH ×2 (05:00→05:49)
[2021-12-26] MEDS ORDERED: PANTOPRAZOLE 40 MG TABLET PO SCH (07:30)
[2021-12-26] MEDS ORDERED: SYMBICORT 80-4.5 MCG INHALER INHALATION SCH (08:00)
[2021-12-26] MEDS ORDERED: ISOSORBIDE MONONITRATE ER 30 MG TAB.ER.24H PO SCH (09:00)
[2021-12-26] MEDS ORDERED: LOSARTAN 50 MG TAB PO SCH (09:00)
[2021-12-26] MEDS ORDERED: DILTIAZEM CD 120 MG CAP.ER.24H PO SCH (09:00)
[2021-12-26] MEDS ORDERED: hydroCHLOROthiazide 12.5 MG CAP PO SCH (09:00)
[2021-12-26] MEDS ORDERED: CHOLECALCIFEROL 25 MCG (1000 IU) TABLET PO SCH (09:00)
[2021-12-26] MEDS: METOPROLOL TARTRATE 25 MG TAB PO SCH (09:11)
[2021-12-26] MEDS: ACETAMINOPHEN TAB 325 MG TAB PO PRN (12:30)
[2021-12-26] MEDS ORDERED: CLINDAMYCIN 900 MG in DEXTROSE 5% IN WATER 50 ML IVPB ONE ×2 (15:00)
[2021-12-26 15:44] VITALS: BP 133/64; PULSE 58; TEMP 98.5
--- NOTE | 2021-12-28 09:04 | P.PCN ---
Date of Procedure: 12/25/21 Preoperative Diagnosis: Battery depletion Postoperative Diagnosis: The same Procedure(s) Performed: Generator change and exploration for possible replacement of the battery in the subclavicular area. Description of Procedure: HISTORY: This is a 86-year-old female with history of permanent pacemaker implantation done in outside facility several years ago. Apparently, generator was moved medially because of issues with shoulder. Her pacemaker is almost precardiac in location. Procedure was initiated with the attempt to move the generator back to the subclavicular area. However, after creating a pocket in the subclavicular area and exposing the leads, it was noted that patient had extensive scarring and there is a large gap between the subclavicular pocket and the present location of the generator. Dr. Moses was consulted regarding the possibility of moving the leads and the generator into the subclavicular area. He also did some dissection and found it is very difficult to reach the pulse generator from the pocket. CONSENT: I have discussed the risks and benefits as related to the above mentioned procedure and both sedation/analgesia as well as necessary blood product administration. The patient has indicated understanding and acceptance of the risks of the procedure discussed. PROCEDURE: TEMPORARY PACEMAKER INSERTION: Patient is pacemaker dependent. Patient was brought to the lab in a fasting state. The skin in the right groin area is infiltrated with lidocaine. The right femoral vein was entered using Seldinger technique. A balloon-tip was 5-[place] pacemaker wire was advanced under fluoroscopy and was placed at the apex of the right ventricle. Satisfactory threshold were obtained. The pacemaker was set at a rate of 40 and output of 3. GENERATOR CHANGE: Patient was given IV Versed and fentanyl for sedation. An incision was made parallel to the original incision subclavicular area and was deepened until the leads were exposed. It was felt that patient has extensive scarring around the leads. Attempts were made to free the leads and to see if generator can be pulled into the subclavicular pocket. Dr. Moses is also consulted. He also attempted to explore the possibility of pulling the generator into the subclavicular area. After some time, it was felt that is not feasible. Subsequently the skin over the existing generator was infiltrated with lidocaine. An incision was made and was deepened until the generator was exposed. This was performed by Dr. Moses. The leads were and checked for thresholds which appeared to be stable. The leads were then connected to the new pulse generator and the pocket was closed in the usual fashion. Satisfied thresholds were obtained The subclavicular pocket was also closed in the usual fashion in 3 layers. Patient tolerated the procedure well. Patient was given 1 mg of Versed and micrograms of fentanyl. Subsequently department of anesthesia was requested to provide anesthesia/analgesia, because of prolonged procedure and patient's discomfort. Please refer to their notes for further information. The temporary pacemaker wire was pulled out at the end of the procedure and hemostasis was obtained with no compression. Fentanyl 100 g Versed: 1 mg Duration 120 minutes THRESHOLDS: ATRIAL: . Patient was in atrial fibrillation. The patient threshold was not obtained. The impedance was 665 F-wave: 0.5 VENTRICULAR: The minimum patient threshold is 1.2 at pulse width of 0.4. The impedance is 570 R-wave: Not obtained THE LEADS: ATRIAL: This is manufactured by [employer]. Model number is 4086 and the serial number is [id number] VENTRICULAR: . This is manufactured by [employer]. Model number is 4088 and the serial number is [id number] THE EXPLANTED DEVICE: This is manufactured by [employer]. Model number is S606 and the serial number is [id number]. THE NEW DEVICE: This is manufactured by [employer]. The model number is [id number] and the serial number is [id number] The leads were then connected to a new pulse generator. Pacemaker seems to function normally. The pocket was irrigated with antibiotics. The pocket was closed in the usual fashion. Pectoral fascia was closed with 2-0 Prolene, the subcutaneous tissue was closed with 3-0 Prolene and the skin was closed with 4-0 Prolene. The subclavicular pocket also closed in the usual fashion. Patient tolerated the procedure well . Patient will be monitored on the telemetry unit . If patient is stable will be discharged home tomorrow PLAN: Telemetry monitoring. Resume home meds. Possible discharge in morning FALLOW UP: With the Dr. García in one week
--- NOTE | 2021-12-28 09:08 | P.DS ---
Providers Date of admission: 12/25/2021 Attending physician: Jeremi Lemus Primary care physician: Dayanna Izquierdo - Discharge Diagnosis(es) (1) Pacemaker battery depletion Status: Acute (2) Hyperlipidemia Status: Acute (3) Hypertension Status: Acute Hospital Course: Patient was brought to the hospital for generator change. Patient generator was medial. Attempts were made to create a pocket in the subclavicular area. However, patient had extensive scarring and was a large gap between subclavicular area and current location of the generator. After attempts to move the generator, with help of Dr. Chavis also, the procedure was abandoned. Subsequently, the generator was exposed in the original location and a new battery was installed in the usual fashion. Both pockets were closed in the usual fashion. Patient tolerated the procedure well, though took a long time. Patient also had department of anesthesia helping because of prolonged procedure and discomfort. Patient hospital stay was stable without any undue pain arrhythmias, bleeding. Her dressing is dry. Pacemaker is pacing. Patient is being discharged home today. She will keep the dressing dry until seen in the office in one week. Patient will continue prophylactic antibiotics along with home medication. Follow-up with Dr. Bello in one week. Patient will report if there is any undue swelling, bleeding or pain. Patient Condition at Discharge: Good Plan - Discharge Summary Discharge Rx Participant: No New Discharge Prescriptions: New clindamycin HCL [Cleocin] 300 mg PO Q8H #9 cap Continue Diltiazem HCl [Cardizem CD] 120 mg PO QAM hydroCHLOROthiazide [Hydrodiuril] 12.5 mg PO QAM Nitroglycerin Sl Tabs [Nitrostat] 0.4 mg SUBLINGUAL Q5M PRN PRN Reason: Chest Pain Cholecalciferol [Vitamin D3 (25 Mcg = 1000 Iu)] 1,000 unit PO QAM Metoprolol Tartrate [Lopressor] 25 mg PO BID Aspirin EC [Ecotrin Low Dose] 81 mg PO DAILY Telmisartan [Micardis] 20 mg PO QAM Isosorbide Mononitrate ER [Imdur] 30 mg PO QAM Atorvastatin Calcium [Lipitor] 80 mg PO HS Fluticasone/Vilanterol [Breo Ellipta 100-25 Mcg Inhaler] 1 inhalation PO Q24HR Pantoprazole Sodium [Protonix] 40 mg PO DAILY Discharge Medication List Diltiazem HCl [Cardizem CD] 120 mg PO QAM 01/05/16 [History] hydroCHLOROthiazide [Hydrodiuril] 12.5 mg PO QAM 01/05/16 [History] Cholecalciferol [Vitamin D3 (25 Mcg = 1000 Iu)] 1,000 unit PO QAM 01/20/16 [History] Nitroglycerin Sl Tabs [Nitrostat] 0.4 mg SUBLINGUAL Q5M PRN 01/20/16 [History] Metoprolol Tartrate [Lopressor] 25 mg PO BID 09/04/17 [History] Aspirin EC [Ecotrin Low Dose] 81 mg PO DAILY 06/03/18 [History] Isosorbide Mononitrate ER [Imdur] 30 mg PO QAM 05/14/19 [History] Telmisartan [Micardis] 20 mg PO QAM 05/14/19 [History] Atorvastatin Calcium [Lipitor] 80 mg PO HS 07/28/20 [History] Fluticasone/Vilanterol [Breo Ellipta 100-25 Mcg Inhaler] 1 inhalation PO Q24HR 12/18/21 [History] Pantoprazole Sodium [Protonix] 40 mg PO DAILY 12/22/21 [History] clindamycin HCL [Cleocin] 300 mg PO Q8H #9 cap 12/26/21 [Rx] Follow up Appointment(s)/Referral(s): Poncho García MD [STAFF PHYSICIAN] - 1 Week (Follow up with Device clinic on January 01 at 4:00pm.) Patient Instructions/Handouts: Pacemaker Generator Change (DC), Procedural Sedation (ED) Discharge Disposition: HOME SELF-CARE
== END 2021-12-26 16:07 | disposition home or self-care (01) ==
LOC: CATHEP 07:32 → 6NMEDSUR 10:48 → CATHEP 12-26 16:07
PROVIDERS: ATTEND Internal Medicine Cardiovascular Disease
DX: Z45.010 Encounter for checking and testing of cardiac pacemaker pulse generator [battery] (principal); Z79.82 Long term (current) use of aspirin; Z20.822 Contact with and (suspected) exposure to COVID-19
CPT/HCPCS: 33228; 94640; 80048; 85025; 87635; C1894; C1769 ×3; C1785; J2250; J2001; J3010; J2704

== ENCOUNTER → 2022-08-20 | Outpatient (CLI) | payer MEDICARE, OTHER ==
--- NOTE | 2022-08-20 11:27 | CT ---
EXAMINATION TYPE: CT brain wo con DATE OF EXAM: 08/20/2022 COMPARISON: 03/21/2018 HISTORY: memory changes, loss of balance CT DLP: 1108.4 mGycm Automated exposure control for dose reduction was used. FINDINGS: There is no acute intracranial hemorrhage or midline shift identified. No suspicious fluid collection is seen. There is diffuse ventricular and sulcal prominence consistent with diffuse age-related cere bral atrophy. There is low-attenuation in the periventricular white matter consistent with chronic sm all vessel ischemic change. The globes are intact. Mild mucosal thickening is seen within the ethmoid sinuses and left maxillary sinus. Remaining visualized paranasal sinuses and mastoid air cells are w ell aerated. Atherosclerosis is seen of the intracranial vasculature. IMPRESSION: No acute intracranial hemorrhage or midline shift. There is diffuse age-related cerebral atrophy and chronic small vessel ischemic change noted.
== END | disposition home or self-care (01) ==
LOC: RADCTMAIN 10:48
PROVIDERS: ATTEND Psychiatry & Neurology Neurology
DX: G91.2 (Idiopathic) normal pressure hydrocephalus (principal); G31.1 Senile degeneration of brain, not elsewhere classified; I67.82 Cerebral ischemia; R41.3 Other amnesia; R26.89 Other abnormalities of gait and mobility
CPT/HCPCS: 70450